=== PATIENT | male | born 1930 | race Caucasian/White ===

== ENCOUNTER 2017-12-08 08:43 | Outpatient (CLI) | payer OTHER ==
--- NOTE | 2017-12-08 11:15 | CT ---
CT ABDOMEN AND PELVIS WITH AND WITHOUT IV CONTRAST: Date: 12/08/17 HISTORY: Gross hematuria. FINDINGS: There are chronic changes in the lung bases and evidence of old granulomatous disease. Calcified gran ulomas are seen in the spleen. The liver, pancreas, and adrenal glands are normal. No calcified galls tones are seen. There is interposition of the colon anterior to the liver. No calculi seen in the kidneys, right ureter, or the urinary bladder. There is left-sided moderate hy droureteronephrosis due to a 6.0 mm calculus at L5 level. There is a 3.0 cm cortical cyst arising fro m the superior pole of the right kidney. No free air, free fluid, or lymphadenopathy seen in the abdomen or pelvis. There are vascular calcifi cations without evidence of aneurysmal dilatation of the abdominal aorta. There are degenerative quinonez ges in the spine. There are fat-containing small bilateral inguinal hernia. A normal appearing append ix is present. IMPRESSION: 1. Obstructing 6.0 mm left ureteric calculus at L5 level. 2. Right renal cyst. POS: DAVID
== END 2017-12-08 08:44 | disposition home or self-care (01) ==
LOC: CT 08:43
PROVIDERS: ATTEND Urology
DX: R31.0 Gross hematuria (principal); N20.1 Calculus of ureter; N28.1 Cyst of kidney, acquired
CPT/HCPCS: 36415; 74178; 80048; 81001; 82565; 84153; 87086

== ENCOUNTER 2018-02-09 06:11 | Inpatient (IN) | payer OTHER ==
[2018-02-09] MEDS ORDERED: Levofloxacin 500 mg/D5W 100 ml Premix Bag ONE (08:44)
[2018-02-09] MEDS ORDERED: Fentanyl 100 MCG/2 ML VIAL ONE (09:43)
[2018-02-09] MEDS ORDERED: Iothalamate Meglumine 60% 50 ML VIAL FS ONE (10:40)
[2018-02-09] MEDS ORDERED: PROPOFOL 200 MG/20 ML VIAL ONE (11:08)
[2018-02-09] MEDS ORDERED: Ondansetron PF 4 MG/2 ML Vial ONE (11:08)
--- NOTE | 2018-02-09 12:03 | OP ---
DATE OF PROCEDURE: 02/09/2018 SERVICE: Urology. SURGEON: Miles Kamara M.D. PREOPERATIVE DIAGNOSIS: Left ureteral stone. POSTOPERATIVE DIAGNOSIS: Left ureteral stone. PROCEDURE PERFORMED: Left ureteroscopy, laser lithotripsy, basket extraction of stone and placement of a 6 x 26 double-J stent. INDICATIONS FOR PROCEDURE: Mr. Perez is an 87-year-old white male who presented with gross hematuria and was found to have a left ureteral stone. He is asymptomatic from this, but I had recommended at we go ahead and treat the stone given that he does have hydronephrosis and gross hematuria. Risks and benefits of the surgery were discussed and he has agreed to proceed forward. His feed research aide d id clear him for surgery, but asked that he remain on Coumadin during his procedure. DESCRIPTION OF PROCEDURE: After identification of armband and verification of consent, the patient w as brought back to the operating room where he underwent general anesthesia with an LMA. He was plac ed in dorsal lithotomy position, prepped and draped in usual sterile fashion. After appropriate time out, a lubricated 22-Hong Konger rigid cystoscope was introduced per urethra into the bladder. Attention was turned towards the left ureteral orifice, which was cannulated with a 5-Hong Konger Pollack catheter. A retrograde pyelogram was performed and the trial manager image did not demonstrate a radiopacity for the s tone. Retrograde pyelogram also did not demonstrate any filling defects indicative of the stone. e CT did confirm the stone was present and I had suspected it likely has not moved. As such, based o n the CT location of the stone, I went ahead and decided where I thought the stone would be and the P ollack catheter was removed. A sensor wire was brought in and placed up into the level of the renal pelvis. The cystoscope was then removed and a dual-lumen catheter placed up into the distal ureter. An Amplatz Super Stiff wire was then placed through the second lumen of the dual lumen up to the lev el of the renal pelvis. The dual lumen removed. The sensor wire was affixed to the drapes as a safe ty wire. An 11/13 x 36 cm ureteral access sheath was advanced over the Super Stiff wire to the level of the mid ureter right approximately at the level of where I presume the stone would be. Inner can nula was removed along with the Super Stiff wire leaving the outer sheath and the sensor wire in plac e. A flexible digital ureteroscope was then passed through the ureteral access sheath into the urete r where the stone was encountered in the expected location. A 200 micron laser fiber was used to fra gment the stone into smaller pieces and a 1.9 Hong Konger Zero Tip nitinol basket used to basket extract a ll the pieces out. Upon completion, there were no additional stone fragments noted within the ureter . I went all the way up into the kidney and did a brief evaluation within the kidney, which did not demonstrate any other calculi. Pull back ureteroscopy was employed and additional stone fragments we re found further down in the distal ureter, which were basketed out. The sheath ended up coming out of the ureter at the very end and I was not sure if all the ureteral fragments had cleared. Therefor e, the sheath and the digital ureteroscope were removed and a semirigid ureteroscope brought in and c annulated into the distal ureter. There were no additional stone fragments noted, so I felt confiden t that the remaining small pieces had passed into the bladder. As such, the ureteroscope was withdra wn and the cystoscope was then backloaded with sensor wire back into the bladder. A 6 x 26 double-J stent was advanced over the sensor wire up to the level of the renal pelvis and the wire removed leav ing a good curl in the renal pelvis and good curl in the bladder. The bladder was then drained and t he cystoscope removed. The patient was then awakened and taken to PACU for recovery in stable condit ion. COMPLICATIONS: None. ESTIMATED BLOOD LOSS: Minimal. RETAINED TUBES AND DRAINS: A 6 x 26 double-J stent on the left. SPECIMENS: Stone for stone analysis. DISPOSITION: The patient will be discharged home and follow up with me in approximately 2 weeks for cystoscopy and stent removal.
[2018-02-09] MEDS ORDERED: HYDROcodone/Acetaminophen 5/325 mg Tablet ONE (13:35)
[2018-02-09] MEDS ORDERED: Furosemide 40 MG TAB PO SCH (15:30)
[2018-02-09] MEDS ORDERED: Sodium Chloride 0.9% 0 ML ONE (17:26)
[2018-02-09] MEDS ORDERED: traMADol HCl 50 MG TAB PO PRN (18:45)
[2018-02-09 20:38] VITALS: BMI 37.4
[2018-02-09] MEDS ORDERED: Atorvastatin Calcium 20 MG TAB PO SCH (21:00)
[2018-02-09] MEDS: Vit A,C & E/Lutein/Minerals Tablet PO SCH (21:57)
[2018-02-10 06:21] LABS: INR-International Normal Ratio 3.6; Prothrombin Time 35.7 SEC (12.0-14.7)
[2018-02-10 06:41] LABS: Hemoglobin 13.4 g/dL (14.0-18.0); Mean Corpuscular HGB CONC 32.8 g/dL (32.0-36.0); Mean Corpuscular Hemoglobin 31.3 pg (27.0-31.0); Mean Corpuscular Volume 95.5 fL (78.0-98.0); Mean Platelet Volume 6.5 fL (7.4-10.4); Platelet Count 242 thou/uL (130-400); RBC Distribution Width 12.7 % (11.5-14.5); Red Blood Cell (RBC) Count 4.27 mill/uL (4.70-6.10); White Blood Cell (WBC) Count 6.1 thou/uL (4.8-10.8)
[2018-02-10] MEDS: Ferrous Sulfate 325 MG TAB PO SCH ×2 (08:59→20:11)
[2018-02-10] MEDS: Furosemide 40 MG TAB PO SCH (09:02)
[2018-02-10] MEDS: Potassium Chloride 10 MEQ TAB PO SCH (09:03)
[2018-02-10] MEDS: Vit A,C & E/Lutein/Minerals Tablet PO SCH ×2 (09:03→20:11)
[2018-02-10] MEDS ORDERED: Warfarin Sodium 5 MG TAB PO SCH ×3 (15:30→17:00)
--- NOTE | 2018-02-10 15:41 | PRG ---
DATE OF SERVICE: 02/10/2018 SUBJECTIVE: The patient states he is feeling good. He has had a few bladder spasms overnight, but o therwise nothing terrible. He elected to stay in the hospital after surgery due to significant hemat uria with possible clot retention. Due to his mechanical heart valve, he was not permitted to stop h is Coumadin for the surgery, so we have continued it. He does live alone and has expressed concern a bout going home by himself with a catheter with his level of hematuria. OBJECTIVE: VITAL SIGNS: Temperature 97.7, pulse 78, respirations 22, blood pressure 117/71, saturation 92% on r oom air. GENERAL: No apparent distress, communicative and alert. CARDIOVASCULAR: Regular rate and rhythm. Loud systolic murmur. CHEST: No increased work of breathing, clear anteriorly. ABDOMEN: Soft, nontender, nondistended. GENITOURINARY: Alejo catheter in place, secured. A 20-Romansh catheter with maroon-colored urine. C atheter was hand irrigated with normal saline, which resulted in no clots and immediate clearing of u rine to light pink. EXTREMITIES: 3+ edema bilaterally with stasis dermatitis. ASSESSMENT AND PLAN: An 87-year-old white male with gross hematuria secondary to recent ureteroscopy for stone removal and ureteral stenting while still on Coumadin. I will hold his aspirin as I do no t think it is really necessary at this point to keep additional blood thinners on it that are not nec essary. We will keep him on a Coumadin friendly diet. His INR is a little high at 3.6, but he also doses his Coumadin at half dose on Mondays and Saturdays and since Tuesday is coming up, he probably will have correction in his INR automatically back into his therapeutic range. For now, I am in agr eement that given his social situation, it will probably be better for him to stay in the hospital to watch his hematuria. So long as his catheter continues to drain, I think he can undergo a void tria l tomorrow and be watched for 1 additional day to ensure that he is urinating appropriately. At that point, I think he can be discharged home and we will plan to have him follow up next week for cystos copy and stent removal.
[2018-02-10] MEDS: Simvastatin 40 MG TAB PO SCH (20:11)
[2018-02-10] MEDS ORDERED: Non-Formulary Item 1 EACH (Ferrous Sulfate [Ferrous Sulfate] 325 MG) PO SCH (21:00)
[2018-02-10] MEDS ORDERED: WARFARIN PO PRN (21:12)
[2018-02-11 05:57] LABS: #Eosinphils 0.3 thou/uL (0.0-0.7); #Lymphocytes 1.7 thou/uL (1.20-3.40); #Monocytes 0.7 thou/uL (0.11-0.59); #Neutrophils 3.7 thou/uL (1.40-6.50); %Basophils 0.6 % (0.0-1.0); %Eosinophils 4.7 % (0.0-10.0); %Lymphocytes 26.8 % (21.0-51.0); %Monocytes 10.3 % (0.0-10.0); %Neutrophils 57.7 % (42.0-75.0); Hemoglobin 12.9 g/dL (14.0-18.0); Mean Corpuscular HGB CONC 33.1 g/dL (32.0-36.0); Mean Corpuscular Hemoglobin 31.8 pg (27.0-31.0); Mean Platelet Volume 6.4 fL (7.4-10.4); Platelet Count 217 thou/uL (130-400); RBC Distribution Width 12.7 % (11.5-14.5); Red Blood Cell (RBC) Count 4.07 mill/uL (4.70-6.10); White Blood Cell (WBC) Count 6.4 thou/uL (4.8-10.8)
[2018-02-11 06:16] LABS: Anion Gap 12 mmol/L (10-20); BUN (Urea Nitrogen) 14 mg/dL (8.4-25.7); Calc. Creatinine Clearance 67 mL/min (70-130); Carbon Dioxide 30 mmol/L (23-31); Chloride 103 mmol/L (98-107); Estimated GFR-MDRD 54; Glucose 123 mg/dL (83-110); Potassium 3.5 mmol/L (3.5-5.1); Sodium 141 mmol/L (136-145)
[2018-02-11 06:55] LABS: INR-International Normal Ratio 2.3
[2018-02-11] MEDS: Vit A,C & E/Lutein/Minerals Tablet PO SCH ×2 (08:50→21:07)
[2018-02-11] MEDS: Furosemide 40 MG TAB PO SCH (08:50)
[2018-02-11] MEDS: Potassium Chloride 10 MEQ TAB PO SCH (08:50)
[2018-02-11] MEDS: Ferrous Sulfate 325 MG TAB PO SCH ×2 (08:50→18:01)
[2018-02-11] MEDS ORDERED: Furosemide 40 MG TAB PO SCH (09:00)
[2018-02-11] MEDS ORDERED: Potassium Chloride 10 MEQ TAB PO SCH (09:00)
[2018-02-11] MEDS ORDERED: Bisacodyl 5 MG TAB PO PRN (09:37)
[2018-02-11] MEDS ORDERED: Senokot S 8.6-50 MG TAB PO SCH (10:00)
--- NOTE | 2018-02-11 10:31 | CON ---
DATE OF CONSULTATION: 02/11/2018 CONSULTING PHYSICIAN: Miles Kamara M.D. REASON FOR CONSULTATION: Medical management. 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 The marco a ent developed symptomatic left-sided kidney stone requiring ureteroscopy with stone extraction and st ent placement. However, given the patient's mechanical valve situation, he was maintained on his war farin through the procedure. Subsequent to the procedure, the patient has had some hematuria and the refore has been monitored in the hospital. Currently, the patient states he feels okay. He continue s to have significant amount of hematuria. REVIEW OF SYSTEMS: Notable for some discomfort in the right shoulder area. He also has some dry eye symptoms related to his ocular prosthesis. Otherwise, 10 system review is negative. PAST MEDICAL HISTORY: Notable for left eye prosthesis, macular degeneration of the right eye, ashby ry artery disease, mechanical valve three-vessel, venous stasis dermatitis, sleep apnea, hypertension . PAST SURGICAL HISTORY: Prosthetic valve placement, right knee surgery, tonsillectomy, adenoidectomy, 3-vessel coronary artery bypass graft. FAMILY HISTORY: Notable for myocardial infarction in the grandmother and coronary artery disease. SOCIAL HISTORY: The patient quit smoking over 10 years ago. He has no alcohol use, no drug use. He is . He is FULL CODE and his children will be his surrogate decision maker, specifically his youngest daughter, but he would also defer to his other children or girlfriend if necessary. ALLERGIES: None. HOME MEDICATIONS: Include potassium 10 mEq daily, Preservision soft gels 1 p.o. b.i.d., ferrous sulf ate 325 b.i.d., vitamin D3 1000 units every day, simvastatin 0.5 mg at bedtime, Lasix 40 mg every day , aspirin 81 mg daily, warfarin 5 mg p.o. daily as directed, tramadol 50 mg q.4 hours p.r.n. CURRENT HOSPITAL MEDICATIONS: Replicate the home medications. His Coumadin regimen is 5 mg Tuesday, Tuesday, Tuesday, , Tuesday with a 2.5 mg Tuesday and Tuesday. PHYSICAL EXAMINATION: VITAL SIGNS: Temperature is 97.5, pulse 75, respirations 14-24, O2 sat 91%-93%, O2 sat 95% on room a ir, BP 125/82. GENERAL APPEARANCE: Age appropriate male. He is awake, alert, oriented, pleasant, cooperative. He is in no distress. HEENT: Reveals left eye prosthesis. NECK: Supple and symmetric. HEART: Regular rate and rhythm. He does not have a significantly loud mechanical click noted. He h as got no significant murmurs. There is about a 1/6 in the left upper sternal border. LUNGS: Clear to auscultation bilaterally anterior. He preferred not to sit up because of pain in hi s shoulder which is chronic. ABDOMEN: Soft, nontender, nondistended, positive bowel sounds, no masses, no organomegaly. EXTREMITIES: Warm and dry with no edema. There is some chronic stasis dermatitis present; however a lso note patient has a persistent indwelling Alejo catheter with his significant amount of hematuria present. CURRENT LABORATORY DATA: White count 6.4, hemoglobin 12.9, platelets 217. INR is 1.3. Sodium 141, potassium 3.5, chloride 103, CO2 30, BUN 14, creatinine 1.27 and glucose 123. IMPRESSION AND PLAN: 1. Hematuria, status post ureteral stone extraction and stent placement. Unfortunately, this is exa cerbated by the patient's persistent need for the anticoagulation. Currently, he is at 2.3 on his IN R, tiny bit lower than I would like to see it for the heart valve, but given the situation, this is p robably very appropriate level. Continue Alejo catheter to ensure the patient does not have any clot ting until removed by Urology. 2. Prosthetic heart valve, presumably aortic position. The patient remains on Coumadin. His target range is 2.5-3.5. He is 2.3 today, not going to give him any additional Lovenox given the persisten t hematuria and the fact that he is remaining on his usual Coumadin therapy. We will continue to mon itor that daily. 3. Patient is essentially wheelchair bound and has significant vision difficulties for him to be abl e to manage the Alejo catheter, especially with concerns for hematuria and clotting on the need for r epeat labs be virtually impossible for this person. This patient is trying to manage as an outpatien t. Therefore, agree with having him in the hospital for this particular episode of care. 4. History of coronary artery disease, stable. Continue his usual home medical regimen other than h aving his aspirin held temporarily. 5. Hyperlipidemia. Continue with Zocor. 6. Chronic peripheral edema. Continue with Lasix and potassium.
--- NOTE | 2018-02-11 11:20 | PRG ---
DATE OF SERVICE: 02/11/2018 SUBJECTIVE: The patient is resting comfortably. Denies flank pain. No complaints. OBJECTIVE: VITAL SIGNS: Stable, 97.5, 91, 125/82. I's and O's 1100 in and 875 out. He is positive 200 mL. ABDOMEN: Soft, nontender, nondistended. GENITOURINARY: There is a moderate amount of dry blood around the Alejo catheter. No active oozing around the meatus noted. Alejo catheter bag demonstrates very dark maroon urine. Curiel red in the tubing. I did flush his catheter. Although it clears, he remains curiel red. No clots are appreciated. EXTREMITIES: No cyanosis, clubbing, or edema. PERTINENT LABORATORY DATA: White count is 6; hemoglobin 12.9, yesterday was 13.4; platelets 217. INR this morning is 2.3 and creatinine 1.2. IMPRESSION AND PLAN: Mr. Perez is an 87-year-old male with, 1. History of ureteral calculi, postoperative day #2, status post ureteroscopy , laser lithotripsy, stent placement. 2. History of mechanical heart valve, on chronic Coumadin. 3. Hematuria, multifactorial. The patient has dropped his hemoglobin slightly. Currently his catheter is draining, If significant amount of clots, he will require a 3-way Alejo catheter with continuous bladder irrigation. Although his INR is mildly subtherapeutic, I do not recommend providing him further anticoagulation, as he does have significant hematuria.; Hospitalist service agrees. Will continue to monitor daily labs. Appreciate hospitalist consult. If significant amount of hematuria warranting CBI, will consider holding Coumadin for a day. Patient not ready for discharge; his H and H has to be stable prior to discharge. Not a candidate for Alejo catheter removal due to degree of hematuria; if removed will result in clot retention. [facility] [place] [facility]
[2018-02-11] MEDS ORDERED: Warfarin Sodium 2.5 MG TAB PO SCH (17:00)
[2018-02-11] MEDS: Senokot S 8.6-50 MG TAB PO SCH (21:07)
[2018-02-11] MEDS: Simvastatin 40 MG TAB PO SCH (21:08)
[2018-02-12] MEDS: Polyvinyl Alcohol 1.4%/Povidone 0.6% Opth Drops EA EYE PRN (03:34)
[2018-02-12 06:08] LABS: #Basophils 0.1 thou/uL (0.0-0.2); #Eosinphils 0.3 thou/uL (0.0-0.7); #Lymphocytes 1.7 thou/uL (1.20-3.40); #Monocytes 0.6 thou/uL (0.11-0.59); %Eosinophils 5.8 % (0.0-10.0); %Lymphocytes 29.7 % (21.0-51.0); %Monocytes 10.3 % (0.0-10.0); %Neutrophils 53.3 % (42.0-75.0); Hemoglobin 13.1 g/dL (14.0-18.0); Mean Corpuscular HGB CONC 33.4 g/dL (32.0-36.0); Mean Corpuscular Volume 96.1 fL (78.0-98.0); Mean Platelet Volume 6.6 fL (7.4-10.4); Platelet Count 239 thou/uL (130-400); RBC Distribution Width 12.8 % (11.5-14.5); Red Blood Cell (RBC) Count 4.09 mill/uL (4.70-6.10); White Blood Cell (WBC) Count 5.6 thou/uL (4.8-10.8)
[2018-02-12 06:27] LABS: Anion Gap 11 mmol/L (10-20); BUN (Urea Nitrogen) 17 mg/dL (8.4-25.7); Calc. Creatinine Clearance 78 mL/min (70-130); Calcium 9.4 mg/dL (7.8-10.44); Carbon Dioxide 31 mmol/L (23-31); Chloride 101 mmol/L (98-107); Estimated GFR-MDRD 64; Glucose 108 mg/dL (83-110); Potassium 3.6 mmol/L (3.5-5.1); Sodium 139 mmol/L (136-145)
[2018-02-12 06:30] LABS: INR-International Normal Ratio 1.5; Prothrombin Time 17.7 SEC (12.0-14.7)
[2018-02-12] MEDS: Furosemide 40 MG TAB PO SCH (09:00)
[2018-02-12] MEDS: Potassium Chloride 10 MEQ TAB PO SCH (09:01)
[2018-02-12] MEDS: Vit A,C & E/Lutein/Minerals Tablet PO SCH ×2 (09:01→21:17)
[2018-02-12] MEDS: Ferrous Sulfate 325 MG TAB PO SCH ×2 (09:01→17:33)
[2018-02-12] MEDS: Senokot S 8.6-50 MG TAB PO SCH ×2 (09:02→21:17)
[2018-02-12] MEDS ORDERED: WARFARIN PO SCH (10:45)
[2018-02-12] MEDS ORDERED: Oxybutynin 5 MG TAB PO PRN (10:52)
--- NOTE | 2018-02-12 11:26 | PRG ---
DATE OF SERVICE: 02/12/2018 SUBJECTIVE: The patient without complaints, denies chest pain, shortness of breath. No significant flank or abdominal pain. PHYSICAL EXAMINATION: VITAL SIGNS: Stable at 97, 14, 92%, 141/87. Urine output 800 mL. ABDOMEN: Soft, protuberant, obese. GENITOURINARY: Alejo catheter cont to have significant hematuria. It was flushed. There is clearing; however, it continues to be luther red. LABORATORY DATA: His INR this morning is 1.5, creatinine 1.0. Hemoglobin is stable at 13. IMPRESSION AND PLAN: Mr. Perez is an 87-year-old male with history of mechanical heart valve, on chronic Coumadin. 1. History of ureteral calculi. Postoperative day #3, status post ureteroscopy , laser lithotripsy, stent placement. 2. Hematuria continues which is multifactorial due to chronic anticoagulation, recent URS with stent. As he continues to have significant hematuria, even with subtherapeutic INR, I did conference with the Hospitalist which they will start heparin drip to bridge. He will continue his home dose Coumadin, his PTT will be checked by the hospitalist service and be monitored for therapeutic level. As he has significant hematuria, which I anticipate may get worse, three -way Alejo catheter was placed,CBI started. Dr. Kamara to resume his care tomorrow morning. [facility]
[2018-02-12] MEDS: Heparin 25,000 units/D5W 500 ML IV SCH (11:56)
[2018-02-12] MEDS ORDERED: Warfarin Sodium 2.5 MG TAB PO SCH (12:00)
[2018-02-12 13:09] LABS: Hemoglobin 13.1 g/dL (14.0-18.0)
--- NOTE | 2018-02-12 13:43 | PDOC.PN ---
- Subjective Encounter Start Date: 02/12/18 Encounter Start Time: 08:20 Pt seen for followup re: hematuria. Denies chest pain, shortness of breath, fevers or chills. - Objective MAR Reviewed: Yes Vital Signs & Weight: Vital Signs (12 hours) Temp Pulse Resp BP BP Pulse Ox 02/12/18 11:07 97.4 F L 89 20 103/69 91 L 02/12/18 08:00 92 L 02/12/18 07:21 97.5 F L 74 24 H 128/85 92 L 02/12/18 04:10 97.8 F 82 14 141/87 H 92 L Weight Weight 246 lb I&O: 02/11/18 02/12/18 02/13/18 06:59 06:59 06:59 Intake Total 1100 720 Output Total 875 800 Balance 225 -80 Result Diagrams: 02/12/18 13:01 02/12/18 04:37 Additional Labs: labs reviewed by me Phys Exam - Physical Examination Constitutional: NAD HEENT: moist MMs Neck: supple Respiratory: clear to auscultation bilateral Cardiovascular: RRR Gastrointestinal: soft Neurological: non-focal, moves all 4 limbs Psychiatric: normal affect Dx/Plan (1) Hematuria Code(s): R31.9 - HEMATURIA, UNSPECIFIED Status: Acute Comment: hemoglobin stable (2) Subtherapeutic international normalized ratio (INR) Code(s): R79.1 - ABNORMAL COAGULATION PROFILE Status: Acute Comment: Pt has mechanical mitral valve, needs to be on anticoagulation. Discussed risks vs benefits with patient. Pt agreeable to starting heparin drip, with PTT monitoring and serial hemoglobin checks. Discussed with pharmacy, they will manage warfarin. (3) HLD (hyperlipidemia) Code(s): E78.5 - HYPERLIPIDEMIA, UNSPECIFIED Status: Chronic Comment: continue statin. (4) HTN (hypertension) Code(s): I10 - ESSENTIAL (PRIMARY) HYPERTENSION Status: Chronic Comment: controlled. - Plan * . Review of Systems - Review of Systems Respiratory: negative: Cough, Shortness of Breath, SOB with Excertion, Pleuritic Pain, Wheezing Cardiovascular: negative: chest pain, palpitations, orthopnea, paroxysmal nocturnal dyspnea, edema, light headedness Genitourinary: Hematuria - Medications/Allergies Allergies/Adverse Reactions: Allergies Allergy/AdvReac Type Severity Reaction Status Date / Time No Known Drug Allergies Allergy Verified 02/09/18 20:38 Medications: Current Medications Aspirin (Aspirin Chewable) 81 mg PO DAILY [facility] Last Admin: 02/12/18 09:00 Dose: 81 mg Bisacodyl (Dulcolax) 5 mg PO DAILYPRN PRN PRN Reason: Constipation Cholecalciferol (Vitamin D3) 1,000 units PO DAILY [facility] Last Admin: 02/12/18 09:01 Dose: 1,000 units Ferrous Sulfate (Feosol) 325 mg PO BID-[facility] Last Admin: 02/12/18 09:01 Dose: 325 mg Furosemide (Lasix) 40 mg PO DAILY [facility] Last Admin: 02/12/18 09:00 Dose: 40 mg Heparin Sodium/Dextrose (Heparin 25,000 Units/D5w 500 Ml) 500 mls @ 0 mls/hr IV INF [facility]; Protocol Last Admin: 02/12/18 11:56 Dose: 500 mls Miscellaneous Medication (Pharmacy To Dose) 1 each PO .WARFARIN [facility] Morphine Sulfate (Morphine) 2 mg SLOW IVP Q2H PRN PRN Reason: PAIN IF UNABLE TO TAKE PO Multivitamins/Minerals (Ocuvite With Lutein) 1 tab PO BID [facility] Last Admin: 02/12/18 09:01 Dose: 1 tab Oxybutynin Chloride (Ditropan) 5 mg PO Q8H PRN PRN Reason: Bladder Spasms Polyvinyl Alcohol/Povidone (Refresh Classic Eye Drops) 0 each EA EYE Q4H PRN PRN Reason: Dry Eyes Last Admin: 02/12/18 03:34 Dose: 1 each Potassium Chloride (Klor-Con 10) 10 meq PO QA-[facility] Last Admin: 02/12/18 09:01 Dose: 10 meq Senna/Docusate Sodium (Senokot S) 1 tab PO BID [facility] Last Admin: 02/12/18 09:02 Dose: 1 tab Simvastatin (Zocor) 40 mg PO HS [facility] Last Admin: 02/11/18 21:08 Dose: 40 mg Sodium Chloride (Flush - Normal Saline) 10 ml IVF PRN PRN PRN Reason: Saline Flush Sodium Chloride (Flush - Normal Saline) 10 ml IVF BID [facility] Last Admin: 02/12/18 09:02 Dose: 10 ml Sodium Chloride (Flush - Normal Saline) 10 ml IVF PRN PRN PRN Reason: Saline Flush Tramadol HCl (Ultram) 50 mg PO Q4H PRN PRN Reason: Pain Warfarin Sodium (Coumadin) 5 mg PO 1700 [facility]
[2018-02-12] MEDS: Warfarin Sodium 5 MG TAB PO SCH (17:33)
[2018-02-12 18:12] LABS: Hemoglobin 13.5 g/dL (14.0-18.0); Platelet Count 223 thou/uL (130-400)
[2018-02-12] MEDS: Simvastatin 40 MG TAB PO SCH (21:17)
[2018-02-13 06:13] LABS: #Eosinphils 0.4 thou/uL (0.0-0.7); #Lymphocytes 1.6 thou/uL (1.20-3.40); #Monocytes 0.7 thou/uL (0.11-0.59); #Neutrophils 4.2 thou/uL (1.40-6.50); %Basophils 0.5 % (0.0-1.0); %Eosinophils 6.1 % (0.0-10.0); %Lymphocytes 22.7 % (21.0-51.0); %Monocytes 9.6 % (0.0-10.0); %Neutrophils 61.1 % (42.0-75.0); Hemoglobin 13.2 g/dL (14.0-18.0); Mean Corpuscular HGB CONC 32.1 g/dL (32.0-36.0); Mean Corpuscular Volume 96.6 fL (78.0-98.0); Mean Platelet Volume 6.8 fL (7.4-10.4); Platelet Count 256 thou/uL (130-400); RBC Distribution Width 12.6 % (11.5-14.5); Red Blood Cell (RBC) Count 4.25 mill/uL (4.70-6.10); White Blood Cell (WBC) Count 6.9 thou/uL (4.8-10.8)
[2018-02-13 06:30] LABS: Anion Gap 13 mmol/L (10-20); BUN (Urea Nitrogen) 21 mg/dL (8.4-25.7); Calc. Creatinine Clearance 74 mL/min (70-130); Calcium 9.3 mg/dL (7.8-10.44); Carbon Dioxide 28 mmol/L (23-31); Chloride 102 mmol/L (98-107); Estimated GFR-MDRD 60; Glucose 158 mg/dL (83-110); Potassium 3.4 mmol/L (3.5-5.1); Sodium 140 mmol/L (136-145)
[2018-02-13 07:38] LABS: INR-International Normal Ratio 1.2; Prothrombin Time 15.6 SEC (12.0-14.7)
[2018-02-13] MEDS: Ferrous Sulfate 325 MG TAB PO SCH ×2 (08:00→18:43)
[2018-02-13] MEDS: Potassium Chloride 10 MEQ TAB PO SCH (08:00)
[2018-02-13] MEDS: Senokot S 8.6-50 MG TAB PO SCH ×2 (08:01→20:41)
[2018-02-13] MEDS: Vit A,C & E/Lutein/Minerals Tablet PO SCH ×2 (08:01→20:41)
[2018-02-13] MEDS: Polyvinyl Alcohol 1.4%/Povidone 0.6% Opth Drops EA EYE PRN (08:01)
[2018-02-13] MEDS: Furosemide 40 MG TAB PO SCH (08:01)
[2018-02-13] MEDS ORDERED: Potassium Chloride 20 MEQ TAB PO SCH (08:45)
[2018-02-13] MEDS: Heparin 25,000 units/D5W 500 ML IV SCH (10:02)
--- NOTE | 2018-02-13 15:28 | PDOC.PN ---
- Subjective Encounter Start Date: 02/13/18 Encounter Start Time: 08:00 Pt seen for followup re: hematuria. Denies chest pain, shortness of breath, fevers or chills. - Objective MAR Reviewed: Yes Vital Signs & Weight: Vital Signs (12 hours) Temp Pulse Resp BP Pulse Ox 02/13/18 11:39 97.9 F 89 18 122/78 92 L 02/13/18 07:38 98.1 F 88 18 132/81 92 L 02/13/18 04:21 98.3 F 88 16 155/94 H 92 L Weight Weight 246 lb I&O: 02/12/18 02/13/18 02/14/18 06:59 06:59 06:59 Intake Total 720 Output Total 800 4700 Balance -80 -4700 Result Diagrams: 02/14/18 04:43 02/14/18 04:43 Additional Labs: Labs reviewed by me Phys Exam - Physical Examination Obese HEENT: moist MMs Neck: supple Respiratory: clear to auscultation bilateral Cardiovascular: RRR dark red murphy output Musculoskeletal: edema present Neurological: moves all 4 limbs Psychiatric: normal affect Dx/Plan (1) Hematuria Code(s): R31.9 - HEMATURIA, UNSPECIFIED Status: Acute Comment: hemoglobin stable, pt on heparin drip (2) Subtherapeutic international normalized ratio (INR) Code(s): R79.1 - ABNORMAL COAGULATION PROFILE Status: Acute Comment: continue warfarin with heparin bridge. INR 1.2 today. (3) HLD (hyperlipidemia) Code(s): E78.5 - HYPERLIPIDEMIA, UNSPECIFIED Status: Chronic Comment: on statin. (4) HTN (hypertension) Code(s): I10 - ESSENTIAL (PRIMARY) HYPERTENSION Status: Chronic Comment: controlled. - Plan * . Review of Systems - Review of Systems Cardiovascular: negative: chest pain, palpitations, orthopnea, paroxysmal nocturnal dyspnea, edema, light headedness Gastrointestinal: negative: Nausea, Vomiting, Abdominal Pain, Diarrhea, Constipation, Melena, Hematochezia - Medications/Allergies Allergies/Adverse Reactions: Allergies Allergy/AdvReac Type Severity Reaction Status Date / Time No Known Drug Allergies Allergy Verified 02/09/18 20:38 Medications: Current Medications Aspirin (Aspirin Chewable) 81 mg PO DAILY [facility] Last Admin: 02/13/18 08:01 Dose: 81 mg Bisacodyl (Dulcolax) 5 mg PO DAILYPRN PRN PRN Reason: Constipation Cholecalciferol (Vitamin D3) 1,000 units PO DAILY [facility] Last Admin: 02/13/18 08:01 Dose: 1,000 units Ferrous Sulfate (Feosol) 325 mg PO BID-[facility] Last Admin: 02/13/18 08:00 Dose: 325 mg Furosemide (Lasix) 40 mg PO DAILY [facility] Last Admin: 02/13/18 08:01 Dose: 40 mg Heparin Sodium/Dextrose (Heparin 25,000 Units/D5w 500 Ml) 500 mls @ 0 mls/hr IV INF [facility]; Protocol Last Admin: 02/13/18 10:02 Dose: 500 mls Miscellaneous Medication (Pharmacy To Dose) 1 each PO .WARFARIN [facility] Morphine Sulfate (Morphine) 2 mg SLOW IVP Q2H PRN PRN Reason: PAIN IF UNABLE TO TAKE PO Multivitamins/Minerals (Ocuvite With Lutein) 1 tab PO BID [facility] Last Admin: 02/13/18 08:01 Dose: 1 tab Oxybutynin Chloride (Ditropan) 5 mg PO Q8H PRN PRN Reason: Bladder Spasms Polyvinyl Alcohol/Povidone (Refresh Classic Eye Drops) 0 each EA EYE Q4H PRN PRN Reason: Dry Eyes Last Admin: 02/13/18 08:01 Dose: 1 each Potassium Chloride (Klor-Con 10) 10 meq PO QA-[facility] Last Admin: 02/13/18 08:00 Dose: 10 meq Senna/Docusate Sodium (Senokot S) 1 tab PO BID [facility] Last Admin: 02/13/18 08:01 Dose: 1 tab Simvastatin (Zocor) 40 mg PO HS [facility] Last Admin: 02/12/18 21:17 Dose: 40 mg Sodium Chloride (Flush - Normal Saline) 10 ml IVF PRN PRN PRN Reason: Saline Flush Sodium Chloride (Flush - Normal Saline) 10 ml IVF BID [facility] Last Admin: 02/13/18 08:01 Dose: Not Given Sodium Chloride (Flush - Normal Saline) 10 ml IVF PRN PRN PRN Reason: Saline Flush Tramadol HCl (Ultram) 50 mg PO Q4H PRN PRN Reason: Pain Warfarin Sodium (Coumadin) 5 mg PO 1700 [facility] Last Admin: 02/12/18 17:33 Dose: 5 mg
[2018-02-13] MEDS: Warfarin Sodium 5 MG TAB PO SCH (18:44)
--- NOTE | 2018-02-13 20:38 | PRG ---
DATE OF SERVICE: 02/13/2018 SUBJECTIVE: The patient states he is feeling fine. He is getting a little weak and is having signif icant amount of difficulty getting out of bed. Otherwise, he has no pain and no complaints. He has not had any fevers. He is currently on a heparin drip due to subtherapeutic INR. OBJECTIVE: VITAL SIGNS: Temperature 97.9, pulse 82, respirations 18, blood pressure 128/78, saturation 93% on r oom air. GENERAL: No apparent distress. CARDIOVASCULAR: Regular rate and rhythm. Loud murmur. CHEST: No increased work of breathing, clear anteriorly. ABDOMEN: Soft, nontender, nondistended, positive bowel sounds. GENITOURINARY: Alejo catheter in place on slow drip CBI with urine that is relatively clear in the t ubing. EXTREMITIES: 3+ edema bilaterally. ASSESSMENT AND PLAN: An 87-year-old white male with mechanical heart valve, currently on a heparin d rip with gross hematuria that was not clearing. Given his need for anticoagulation and a number of d ays that have passed, I think it is reasonable for him to have his stent removed at this point which should allow for his hematuria to resolve. We will plan for a stent removal tomorrow with coverage o f ampicillin and cefepime for his mechanical heart valve. After that point, I think we can plan for monitoring him on a heparin drip and his hematuria should clear at which point we will turn off his C BI give him a void trial and as long as he is urinating reasonably well, he can go home. We will sta rt physical therapy given that he has gotten quite weak.
[2018-02-13] MEDS: Simvastatin 40 MG TAB PO SCH (20:42)
[2018-02-14 05:29] LABS: INR-International Normal Ratio 1.2; Prothrombin Time 15.4 SEC (12.0-14.7)
[2018-02-14 05:30] LABS: #Eosinphils 0.4 thou/uL (0.0-0.7); #Lymphocytes 1.6 thou/uL (1.20-3.40); #Monocytes 0.6 thou/uL (0.11-0.59); #Neutrophils 3.5 thou/uL (1.40-6.50); %Basophils 0.6 % (0.0-1.0); %Eosinophils 6.7 % (0.0-10.0); %Lymphocytes 25.8 % (21.0-51.0); %Neutrophils 56.9 % (42.0-75.0); Hemoglobin 12.7 g/dL (14.0-18.0); Mean Corpuscular HGB CONC 32.3 g/dL (32.0-36.0); Mean Corpuscular Hemoglobin 31.3 pg (27.0-31.0); Mean Platelet Volume 6.8 fL (7.4-10.4); PTT 79.4 SEC (22.9-36.1); Platelet Count 253 thou/uL (130-400); RBC Distribution Width 12.7 % (11.5-14.5); Red Blood Cell (RBC) Count 4.05 mill/uL (4.70-6.10); White Blood Cell (WBC) Count 6.1 thou/uL (4.8-10.8)
[2018-02-14 05:53] LABS: Anion Gap 11 mmol/L (10-20); BUN (Urea Nitrogen) 17 mg/dL (8.4-25.7); Calc. Creatinine Clearance 86 mL/min (70-130); Calcium 8.9 mg/dL (7.8-10.44); Carbon Dioxide 30 mmol/L (23-31); Chloride 103 mmol/L (98-107); Estimated GFR-MDRD 72; Glucose 117 mg/dL (83-110); Potassium 3.7 mmol/L (3.5-5.1); Sodium 140 mmol/L (136-145)
[2018-02-14] MEDS ORDERED: Ampicillin 1 GM in Sodium Chloride 0.9% 100 ML IVPB SCH (08:30)
[2018-02-14] MEDS ORDERED: Gentamicin Sulfate 80 MG in Premix Bag 1 BAG IVPB SCH (08:30)
[2018-02-14] MEDS: Heparin 25,000 units/D5W 500 ML IV SCH (09:08)
[2018-02-14] MEDS: Potassium Chloride 10 MEQ TAB PO SCH (09:40)
[2018-02-14] MEDS: Furosemide 40 MG TAB PO SCH (09:40)
[2018-02-14] MEDS: Vit A,C & E/Lutein/Minerals Tablet PO SCH ×2 (09:40→20:38)
[2018-02-14] MEDS: Senokot S 8.6-50 MG TAB PO SCH ×2 (09:40→20:38)
[2018-02-14] MEDS: Polyethylene Glycol 3350 17 GM Packet PO SCH (09:40)
[2018-02-14] MEDS: Ferrous Sulfate 325 MG TAB PO SCH ×2 (09:41→18:22)
[2018-02-14 10:23] LABS: CA Oxalate Dihydrate 12 % (.); CA Oxalate Monohydrate 85 % (.); Color Tan (.); Stone Weight 39.9 mg (.)
[2018-02-14] MEDS ORDERED: Acetaminophen 325 MG TAB PO PRN (14:17)
--- NOTE | 2018-02-14 17:14 | PDOC.PN ---
- Subjective Encounter Start Date: 02/14/18 Encounter Start Time: 07:20 Pt seen for followup re: hematuria. Pt says he feels fine. - Objective MAR Reviewed: Yes Vital Signs & Weight: Vital Signs (12 hours) Temp Pulse Resp BP BP Pulse Ox 02/14/18 15:19 98 F 85 20 146/86 H 92 L 02/14/18 11:48 97.8 F 94 18 151/82 H 95 02/14/18 07:29 97.4 F L 84 18 129/83 91 L Weight Weight 246 lb I&O: 02/13/18 02/14/18 02/15/18 06:59 06:59 06:59 Intake Total 264 Output Total 4700 2980 Balance -3160 -9387 Result Diagrams: 02/14/18 04:43 02/14/18 04:43 Additional Labs: Accuchecks 02/13/18 23:21 POC Glucose 194 H Labs reviewed by me Phys Exam - Physical Examination Constitutional: NAD HEENT: moist MMs Neck: supple Respiratory: clear to auscultation bilateral Cardiovascular: RRR Gastrointestinal: soft Neurological: moves all 4 limbs Psychiatric: normal affect Dx/Plan (1) Hematuria Code(s): R31.9 - HEMATURIA, UNSPECIFIED Status: Acute Comment: hemoglobin 12.7 today, continue heparin drip (2) Subtherapeutic international normalized ratio (INR) Code(s): R79.1 - ABNORMAL COAGULATION PROFILE Status: Acute Comment: INR 1.2 today, continue warfarin with heparin bridge. (3) HLD (hyperlipidemia) Code(s): E78.5 - HYPERLIPIDEMIA, UNSPECIFIED Status: Chronic Comment: continue statin. (4) HTN (hypertension) Code(s): I10 - ESSENTIAL (PRIMARY) HYPERTENSION Status: Chronic Comment: controlled. - Plan * . Review of Systems - Review of Systems Constitutional: negative: fever, chills, sweats, weakness, malaise Cardiovascular: negative: chest pain, palpitations, orthopnea, paroxysmal nocturnal dyspnea, edema, light headedness Genitourinary: Hematuria - Medications/Allergies Allergies/Adverse Reactions: Allergies Allergy/AdvReac Type Severity Reaction Status Date / Time No Known Drug Allergies Allergy Verified 02/09/18 20:38 Medications: Current Medications Acetaminophen (Tylenol) 650 mg PO Q4H PRN PRN Reason: Headache, Aches or Pain Last Admin: 02/14/18 14:23 Dose: 650 mg Aspirin (Aspirin Chewable) 81 mg PO DAILY [facility] Last Admin: 02/14/18 09:41 Dose: 81 mg Bisacodyl (Dulcolax) 5 mg PO DAILYPRN PRN PRN Reason: Constipation Cholecalciferol (Vitamin D3) 1,000 units PO DAILY [facility] Last Admin: 02/14/18 09:40 Dose: 1,000 units Ferrous Sulfate (Feosol) 325 mg PO BID-[facility] Last Admin: 02/14/18 09:41 Dose: 325 mg Furosemide (Lasix) 40 mg PO DAILY [facility] Last Admin: 02/14/18 09:40 Dose: 40 mg Heparin Sodium/Dextrose (Heparin 25,000 Units/D5w 500 Ml) 500 mls @ 0 mls/hr IV INF [facility]; Protocol Last Admin: 02/14/18 09:08 Dose: 500 mls Miscellaneous Medication (Pharmacy To Dose) 1 each PO .WARFARIN [facility] Morphine Sulfate (Morphine) 2 mg SLOW IVP Q2H PRN PRN Reason: PAIN IF UNABLE TO TAKE PO Multivitamins/Minerals (Ocuvite With Lutein) 1 tab PO BID [facility] Last Admin: 02/14/18 09:40 Dose: 1 tab Oxybutynin Chloride (Ditropan) 5 mg PO Q8H PRN PRN Reason: Bladder Spasms Last Admin: 02/14/18 09:40 Dose: 5 mg Polyethylene Glycol (Miralax) 17 gm PO DAILY [facility] Last Admin: 02/14/18 09:40 Dose: 17 gm Polyvinyl Alcohol/Povidone (Refresh Classic Eye Drops) 0 each EA EYE Q4H PRN PRN Reason: Dry Eyes Last Admin: 02/13/18 08:01 Dose: 1 each Potassium Chloride (Klor-Con 10) 10 meq PO QAM-[facility] Last Admin: 02/14/18 09:40 Dose: 10 meq Senna/Docusate Sodium (Senokot S) 1 tab PO BID [facility] Last Admin: 02/14/18 09:40 Dose: 1 tab Simvastatin (Zocor) 40 mg PO HS [facility] Last Admin: 02/13/18 20:42 Dose: 40 mg Sodium Chloride (Flush - Normal Saline) 10 ml IVF PRN PRN PRN Reason: Saline Flush Sodium Chloride (Flush - Normal Saline) 10 ml IVF BID [facility] Last Admin: 02/13/18 20:42 Dose: 10 ml Sodium Chloride (Flush - Normal Saline) 10 ml IVF PRN PRN PRN Reason: Saline Flush Throat Lozenges (Cepastat Lozenges) 1 ken PO PRN PRN PRN Reason: .COUGH Tramadol HCl (Ultram) 50 mg PO Q4H PRN PRN Reason: Pain Warfarin Sodium (Coumadin) 7.5 mg PO 1700 [facility]
[2018-02-14] MEDS: Warfarin Sodium 7.5 MG TAB PO SCH (18:22)
[2018-02-14] MEDS: Simvastatin 40 MG TAB PO SCH (20:38)
[2018-02-15 04:23] LABS: #Eosinphils 0.4 thou/uL (0.0-0.7); #Lymphocytes 1.7 thou/uL (1.20-3.40); #Monocytes 0.8 thou/uL (0.11-0.59); #Neutrophils 5.1 thou/uL (1.40-6.50); %Basophils 0.4 % (0.0-1.0); %Lymphocytes 21.5 % (21.0-51.0); %Monocytes 9.7 % (0.0-10.0); %Neutrophils 63.3 % (42.0-75.0); Hemoglobin 12.2 g/dL (14.0-18.0); Mean Corpuscular HGB CONC 32.9 g/dL (32.0-36.0); Mean Corpuscular Hemoglobin 31.9 pg (27.0-31.0); Mean Corpuscular Volume 96.9 fL (78.0-98.0); Mean Platelet Volume 6.7 fL (7.4-10.4); Platelet Count 246 thou/uL (130-400); RBC Distribution Width 12.7 % (11.5-14.5); Red Blood Cell (RBC) Count 3.82 mill/uL (4.70-6.10); White Blood Cell (WBC) Count 8.1 thou/uL (4.8-10.8)
[2018-02-15 04:26] LABS: INR-International Normal Ratio 1.4; Prothrombin Time 16.8 SEC (12.0-14.7)
[2018-02-15 04:28] LABS: PTT 93.5 SEC (22.9-36.1)
[2018-02-15 04:42] LABS: Anion Gap 12 mmol/L (10-20); BUN (Urea Nitrogen) 21 mg/dL (8.4-25.7); Calc. Creatinine Clearance 50 mL/min (70-130); Calcium 9.1 mg/dL (7.8-10.44); Carbon Dioxide 31 mmol/L (23-31); Chloride 101 mmol/L (98-107); Estimated GFR-MDRD 38; Glucose 119 mg/dL (83-110); Potassium 3.9 mmol/L (3.5-5.1); Sodium 140 mmol/L (136-145)
[2018-02-15] MEDS: Heparin 25,000 units/D5W 500 ML IV SCH (08:17)
[2018-02-15] MEDS: Senokot S 8.6-50 MG TAB PO SCH ×2 (08:19→20:54)
[2018-02-15] MEDS: Ferrous Sulfate 325 MG TAB PO SCH ×2 (08:19→17:06)
[2018-02-15] MEDS: Vit A,C & E/Lutein/Minerals Tablet PO SCH ×2 (08:19→20:54)
[2018-02-15] MEDS: Polyethylene Glycol 3350 17 GM Packet PO SCH (08:19)
[2018-02-15] MEDS: Furosemide 40 MG TAB PO SCH (08:20)
[2018-02-15] MEDS: Potassium Chloride 10 MEQ TAB PO SCH (08:20)
--- NOTE | 2018-02-15 12:14 | PRG ---
DATE OF SERVICE: 02/14/2018 SUBJECTIVE: The patient states he is doing well, has had no problems. We are planning to remove his stent today. His CBI has been relatively light pink on a slow drip. OBJECTIVE: VITAL SIGNS: Temperature 97.9, pulse 82, respirations 20, blood pressure 120/76 , saturation 92% on room air. GENERAL: No apparent distress. Communicative and alert. CARDIOVASCULAR: Regular rate and rhythm. Loud murmur. ABDOMEN: Soft, nontender, nondistended. CHEST: Clear anteriorly. GENITOURINARY: Alejo catheter in place on CBI with slow drip with light red urine. EXTREMITIES: 3+ edema, stable. LABORATORY DATA: The patient's creatinine is 0.99, hemoglobin 12.7. PROCEDURE: The patient was dosed with 1 g of ampicillin and 80 mg of gentamicin prior to cystoscopy and stent removal. The procedure was done at bedside. The patient was left in the supine position and prepped and draped in usual sterile fashion. After timeout, a flexible cystoscope was used to gently cannulate in through the urethra. The Alejo catheter was removed prior to initiating the procedure. The urethra was normal without any strictures. The prostate looked hyperemic but otherwise without any significant bleeding was mildly obstructive. Within the bladder lumen, there was a significant amount of hematuria and some clot which precluded a proper visualization. After some investigation, the stent was identified. Flexible graspers were used to grasp the stent and removed it in its entirety. ESTIMATED BLOOD LOSS: Minimal. COMPLICATIONS: None. ASSESSMENT AND PLAN: An 87-year-old white male requiring anticoagulation on heparin drip with persistent hematuria with successful stent removal today after his ureteroscopy and stone removal. I do expect his hematuria to subsequently clear. We will continue to check on him and keep his CBI going until his hematuria slows down and stops. I do anticipate that it will stop once the offending irritant is removed. I will continue to follow his labs, and we will stop his CBI once his hematuria is light enough and may consider a voiding trial at which point the patient should be able to be discharged home once his anticoagulation is satisfactory by [facility]. EMMA
--- NOTE | 2018-02-15 15:35 | PDOC.PN ---
- Subjective Encounter Start Date: 02/15/18 Encounter Start Time: 15:34 Subjective: feels better.just weak. -: lives alone and normally able to take care of himself - Objective MAR Reviewed: Yes Vital Signs & Weight: Vital Signs (12 hours) Temp Pulse Resp BP Pulse Ox 02/15/18 12:19 18 93 L 02/15/18 12:05 93 L 02/15/18 11:32 98 F 80 20 117/73 91 L 02/15/18 07:33 97.9 F 82 20 121/77 92 L 02/15/18 07:26 92 L 02/15/18 03:52 98.7 F 74 16 120/76 92 L Weight Weight 246 lb I&O: 02/14/18 02/15/18 02/16/18 06:59 06:59 06:59 Intake Total 264 Output Total 2850 1974 -2585 Result Diagrams: 02/15/18 03:12 02/15/18 03:12 Additional Labs: Laboratory Tests 02/11/18 02/13/18 02/14/18 04:59 05:13 04:43 Creatinine 1.27 1.15 0.99 02/15/18 03:12 Creatinine 1.70 H Phys Exam - Physical Examination Constitutional: NAD HEENT: PERRLA, moist MMs, sclera anicteric, TM's clear, oral pharynx no lesions , 2+ tonsils Neck: no nodes, no JVD, supple, full ROM Respiratory: no wheezing, no rales, no rhonchi, clear to auscultation bilateral Cardiovascular: RRR, no significant murmur, no rub Gastrointestinal: soft, non-tender, no distention, positive bowel sounds Musculoskeletal: no edema, pulses present pinkish urine in bag Neurological: non-focal, normal sensation, moves all 4 limbs Psychiatric: normal affect, A&O x 3 Dx/Plan (1) Hematuria Code(s): R31.9 - HEMATURIA, UNSPECIFIED Status: Acute Comment: hemoglobin 12.2 today, continue heparin drip (2) MICHELLE (obstructive sleep apnea) Code(s): G47.33 - OBSTRUCTIVE SLEEP APNEA (ADULT) (PEDIATRIC) Status: Chronic (3) Venous stasis dermatitis of both lower extremities Code(s): I87.2 - VENOUS INSUFFICIENCY (CHRONIC) (PERIPHERAL) Status: Chronic (4) HLD (hyperlipidemia) Code(s): E78.5 - HYPERLIPIDEMIA, UNSPECIFIED Status: Chronic Comment: continue statin. (5) HTN (hypertension) Code(s): I10 - ESSENTIAL (PRIMARY) HYPERTENSION Status: Chronic Comment: controlled. - Plan PT/OT, out of bed/ambulate, DVT proph w/SCDs Uretheral stent removed today.cont CBI per urology -: H/H stable. -: once cleared for restarting coumadin,gely tomorrow,will bridge w IV hepar -: rehab eval. -: IM team will follow.hematuria seems to be resolving * . Review of Systems - Review of Systems Constitutional: weakness, malaise ENT: negative: Ear Pain, Ear Discharge, Nose Pain, Nose Discharge, Nose Congestion, Mouth Pain, Mouth Swelling, Throat Pain, Throat Swelling, Other Respiratory: negative: Cough, Dry, Shortness of Breath, Hemoptysis, SOB with Excertion, Pleuritic Pain, Sputum, Wheezing Cardiovascular: negative: chest pain, palpitations, orthopnea, paroxysmal nocturnal dyspnea, edema, light headedness, other Gastrointestinal: negative: Nausea, Vomiting, Abdominal Pain, Diarrhea, Constipation, Melena, Hematochezia, Other Genitourinary: negative: Dysuria, Frequency, Incontinence, Hematuria, Retention , Other Musculoskeletal: negative: Neck Pain, Shoulder Pain, Arm Pain, Back Pain, Hand Pain, Leg Pain, Foot Pain, Other Neurological: negative: Weakness, Numbness, Incoordination, Change in Speech, Confusion, Seizures, Other - Medications/Allergies Allergies/Adverse Reactions: Allergies Allergy/AdvReac Type Severity Reaction Status Date / Time No Known Drug Allergies Allergy Verified 02/09/18 20:38 Medications: Current Medications Acetaminophen (Tylenol) 650 mg PO Q4H PRN PRN Reason: Headache, Aches or Pain Last Admin: 02/14/18 14:23 Dose: 650 mg Aspirin (Aspirin Chewable) 81 mg PO DAILY [facility] Last Admin: 02/15/18 08:19 Dose: 81 mg Bisacodyl (Dulcolax) 5 mg PO DAILYPRN PRN PRN Reason: Constipation Cholecalciferol (Vitamin D3) 1,000 units PO DAILY [facility] Last Admin: 02/15/18 08:19 Dose: 1,000 units Ferrous Sulfate (Feosol) 325 mg PO BID-[facility] Last Admin: 02/15/18 08:19 Dose: 325 mg Furosemide (Lasix) 40 mg PO DAILY [facility] Last Admin: 02/15/18 08:20 Dose: 40 mg Heparin Sodium/Dextrose (Heparin 25,000 Units/D5w 500 Ml) 500 mls @ 0 mls/hr IV INF [facility]; Protocol Last Admin: 02/15/18 08:17 Dose: 500 mls Miscellaneous Medication (Pharmacy To Dose) 1 each PO .WARFARIN [facility] Morphine Sulfate (Morphine) 2 mg SLOW IVP Q2H PRN PRN Reason: PAIN IF UNABLE TO TAKE PO Multivitamins/Minerals (Ocuvite With Lutein) 1 tab PO BID [facility] Last Admin: 02/15/18 08:19 Dose: 1 tab Oxybutynin Chloride (Ditropan) 5 mg PO Q8H PRN PRN Reason: Bladder Spasms Last Admin: 02/14/18 09:40 Dose: 5 mg Polyethylene Glycol (Miralax) 17 gm PO DAILY [facility] Last Admin: 02/15/18 08:19 Dose: 17 gm Polyvinyl Alcohol/Povidone (Refresh Classic Eye Drops) 0 each EA EYE Q4H PRN PRN Reason: Dry Eyes Last Admin: 02/13/18 08:01 Dose: 1 each Potassium Chloride (Klor-Con 10) 10 meq PO QA-[facility] Last Admin: 02/15/18 08:20 Dose: 10 meq Senna/Docusate Sodium (Senokot S) 1 tab PO BID [facility] Last Admin: 02/15/18 08:19 Dose: 1 tab Simvastatin (Zocor) 40 mg PO [facility] Last Admin: 02/14/18 20:38 Dose: 40 mg Sodium Chloride (Flush - Normal Saline) 10 ml IVF PRN PRN PRN Reason: Saline Flush Sodium Chloride (Flush - Normal Saline) 10 ml IVF BID [facility] Last Admin: 02/15/18 08:20 Dose: Not Given Sodium Chloride (Flush - Normal Saline) 10 ml IVF PRN PRN PRN Reason: Saline Flush Throat Lozenges (Cepastat Lozenges) 1 ken PO PRN PRN PRN Reason: .COUGH Tramadol HCl (Ultram) 50 mg PO Q4H PRN PRN Reason: Pain Warfarin Sodium (Coumadin) 7.5 mg PO 1700 [facility] Last Admin: 02/14/18 18:22 Dose: 7.5 mg
[2018-02-15] MEDS: Warfarin Sodium 7.5 MG TAB PO SCH (17:07)
--- NOTE | 2018-02-15 18:44 | PRG ---
DATE OF SERVICE: 02/15/2018 SUBJECTIVE: The patient states he is doing fine, has no complaints. He has had significant weakness and has been unable to ambulate well on his own. He can only walk very short distances. His CBI wa s held earlier today and his urine has remained a watermelon juice color without any clots and no sig nificant hematuria. OBJECTIVE: VITAL SIGNS: Temperature 97.6, pulse 82, respirations 18, blood pressure 130/78, saturation 93% on r oom air. GENERAL: No apparent distress, communicative, alert. CARDIOVASCULAR: Regular rate and rhythm. Loud murmur. CHEST: Clear anteriorly. ABDOMEN: Soft, nontender, nondistended, positive bowel sounds. GENITOURINARY: Alejo catheter was discontinued, but was a watermelon color juice within the tubing w ithout clots. EXTREMITIES: 3+ edema, stable. LABORATORY DATA: The full sets of labs are in the [facility] system, which I have reviewed. Of note, the patient's hemoglobin is 12.2 with a creatinine of 1.7. ASSESSMENT AND PLAN: An 87-year-old white male with gross hematuria secondary to full anticoagulatio n, status post ureteroscopy. His hematuria is now clearing, now the stent has been removed and there is no longer any irritation within his urinary tract. He has had an elevation in his creatinine, li edyta secondary to acute kidney injury from gentamicin administration yesterday. He only received a s tammy dose, so I do anticipate that his creatinine will improve, but we will continue to monitor and I will check his labs again tomorrow. If there is further elevation in his creatinine, I may consult Nephrology for further assistance and plan for repeat renal ultrasound. He is not having any pain a t this time, however. From a disposition standpoint, the patient shows significant weakness and I am not entirely convinced that he will be safe going home by himself with inability to walk or stand up or get out of bed on his own. I think the patient may be a good candidate for inpatient rehabilitat ion. I will consult case management as well as an inpatient physical therapy consult to see if he ne eds disposition other than going to his house which at this time I do not think is the best option fo r him.
[2018-02-15] MEDS: Simvastatin 40 MG TAB PO SCH (20:54)
[2018-02-16 05:34] LABS: INR-International Normal Ratio 1.6; Prothrombin Time 19.4 SEC (12.0-14.7)
[2018-02-16 05:36] LABS: PTT 99.6 SEC (22.9-36.1)
[2018-02-16] MEDS: Heparin 25,000 units/D5W 500 ML IV SCH (06:29)
[2018-02-16] MEDS: Potassium Chloride 10 MEQ TAB PO SCH (08:47)
[2018-02-16] MEDS: Senokot S 8.6-50 MG TAB PO SCH ×2 (08:47→20:09)
[2018-02-16] MEDS: Polyethylene Glycol 3350 17 GM Packet PO SCH (08:47)
[2018-02-16] MEDS: Furosemide 40 MG TAB PO SCH (08:47)
[2018-02-16] MEDS: Vit A,C & E/Lutein/Minerals Tablet PO SCH ×2 (08:47→20:09)
[2018-02-16] MEDS: Ferrous Sulfate 325 MG TAB PO SCH ×2 (08:47→16:30)
[2018-02-16 09:15] LABS: Anion Gap 11 mmol/L (10-20); BUN (Urea Nitrogen) 26 mg/dL (8.4-25.7); Calc. Creatinine Clearance 42 mL/min (70-130); Calcium 9.3 mg/dL (7.8-10.44); Carbon Dioxide 29 mmol/L (23-31); Chloride 101 mmol/L (98-107); Estimated GFR-MDRD 31; Glucose 123 mg/dL (83-110); Sodium 137 mmol/L (136-145)
--- NOTE | 2018-02-16 13:37 | ULT ---
RENAL ULTRASOUND: HISTORY: Acute kidney injury. Renal stones. Evaluate for hydro. COMPARISON: Correlation is made to CT of 12/08/2017. FINDINGS: The left kidney measures 12 cm length. There is mild left hydronephrosis. The right kidney measures 10 cm in length. A cyst from the superior right kidney is seen measuring 3-4 cm. This corresponds to recent CT. The urinary bladder is only mildly distended. There appears to be mild bladder wall thickening. IMPRESSION: Moderate left hydronephrosis. POS: H
--- NOTE | 2018-02-16 14:20 | PDOC.PN ---
- Subjective Encounter Start Date: 02/16/18 Encounter Start Time: 14:18 Subjective: feels poorly -: having tomasa blood in urine.Alejo/CBI Discontinued yesterday - Objective MAR Reviewed: Yes Vital Signs & Weight: Vital Signs (12 hours) Temp Pulse Resp BP BP Pulse Ox 02/16/18 10:51 97.8 F 80 18 112/71 92 L 02/16/18 08:30 92 L 02/16/18 08:12 97.9 F 77 18 114/74 92 L 02/16/18 04:26 98.0 F 87 16 136/83 91 L Weight Weight 246 lb I&O: 02/15/18 02/16/18 02/17/18 06:59 06:59 06:59 Intake Total 516.4 Output Total 1974 2514 Balance -1974 -1997. Result Diagrams: 02/15/18 03:12 02/16/18 05:13 Phys Exam - Physical Examination Constitutional: NAD sitting on toilet w tomasa blood around the seat HEENT: PERRLA, moist MMs, sclera anicteric, oral pharynx no lesions Respiratory: no wheezing, no rales Cardiovascular: RRR Gastrointestinal: soft, non-tender, no distention, positive bowel sounds Musculoskeletal: no edema Neurological: moves all 4 limbs Psychiatric: normal affect, A&O x 3 Skin: no rash Dx/Plan (1) Hematuria Code(s): R31.9 - HEMATURIA, UNSPECIFIED Status: Acute (2) MICHELLE (obstructive sleep apnea) Code(s): G47.33 - OBSTRUCTIVE SLEEP APNEA (ADULT) (PEDIATRIC) Status: Chronic (3) Venous stasis dermatitis of both lower extremities Code(s): I87.2 - VENOUS INSUFFICIENCY (CHRONIC) (PERIPHERAL) Status: Chronic (4) HLD (hyperlipidemia) Code(s): E78.5 - HYPERLIPIDEMIA, UNSPECIFIED Status: Chronic Comment: continue statin. (5) HTN (hypertension) Code(s): I10 - ESSENTIAL (PRIMARY) HYPERTENSION Status: Chronic Comment: controlled. - Plan PT/OT, DVT proph w/SCDs stop heparin drip.also on coumadin.INR 1.6 today -: renal Fx worsening.US shows Left hydronephrosis -: will consult Nephrology.rest per urology -: monitor H/H serially. -: monitor daily INR. * . Review of Systems - Review of Systems Constitutional: weakness, malaise. negative: fever, chills, sweats, other ENT: negative: Ear Pain, Ear Discharge, Nose Pain, Nose Discharge, Nose Congestion, Mouth Pain, Mouth Swelling, Throat Pain, Throat Swelling, Other Respiratory: negative: Cough, Dry, Shortness of Breath, Hemoptysis, SOB with Excertion, Pleuritic Pain, Sputum, Wheezing Cardiovascular: negative: chest pain, palpitations, orthopnea, paroxysmal nocturnal dyspnea, edema, light headedness, other Gastrointestinal: negative: Nausea, Vomiting, Abdominal Pain, Diarrhea, Constipation, Melena, Hematochezia, Other Genitourinary: Hematuria. negative: Dysuria, Frequency, Incontinence, Retention , Other Musculoskeletal: negative: Neck Pain, Shoulder Pain, Arm Pain, Back Pain, Hand Pain, Leg Pain, Foot Pain, Other Neurological: negative: Weakness, Numbness, Incoordination, Change in Speech, Confusion, Seizures, Other - Medications/Allergies Allergies/Adverse Reactions: Allergies Allergy/AdvReac Type Severity Reaction Status Date / Time No Known Drug Allergies Allergy Verified 02/09/18 20:38 Medications: Current Medications Acetaminophen (Tylenol) 650 mg PO Q4H PRN PRN Reason: Headache, Aches or Pain Last Admin: 02/14/18 14:23 Dose: 650 mg Aspirin (Aspirin Chewable) 81 mg PO DAILY [facility] Last Admin: 02/16/18 08:47 Dose: 81 mg Bisacodyl (Dulcolax) 5 mg PO DAILYPRN PRN PRN Reason: Constipation Cholecalciferol (Vitamin D3) 1,000 units PO DAILY [facility] Last Admin: 02/16/18 08:47 Dose: 1,000 units Ferrous Sulfate (Feosol) 325 mg PO BID-[facility] Last Admin: 02/16/18 08:47 Dose: 325 mg Furosemide (Lasix) 40 mg PO DAILY [facility] Last Admin: 02/16/18 08:47 Dose: 40 mg Miscellaneous Medication (Pharmacy To Dose) 1 each PO .WARFARIN [facility] Morphine Sulfate (Morphine) 2 mg SLOW IVP Q2H PRN PRN Reason: PAIN IF UNABLE TO TAKE PO Multivitamins/Minerals (Ocuvite With Lutein) 1 tab PO BID [facility] Last Admin: 02/16/18 08:47 Dose: 1 tab Oxybutynin Chloride (Ditropan) 5 mg PO Q8H PRN PRN Reason: Bladder Spasms Last Admin: 02/14/18 09:40 Dose: 5 mg Polyethylene Glycol (Miralax) 17 gm PO DAILY [facility] Last Admin: 02/16/18 08:47 Dose: Not Given Polyvinyl Alcohol/Povidone (Refresh Classic Eye Drops) 0 each EA EYE Q4H PRN PRN Reason: Dry Eyes Last Admin: 02/13/18 08:01 Dose: 1 each Potassium Chloride (Klor-Con 10) 10 meq PO QAM-[facility] Last Admin: 02/16/18 08:47 Dose: 10 meq Senna/Docusate Sodium (Senokot S) 1 tab PO BID [facility] Last Admin: 02/16/18 08:47 Dose: Not Given Simvastatin (Zocor) 40 mg PO HS [facility] Last Admin: 02/15/18 20:54 Dose: 40 mg Sodium Chloride (Flush - Normal Saline) 10 ml IVF BID [facility] Last Admin: 02/16/18 08:47 Dose: Not Given Sodium Chloride (Flush - Normal Saline) 10 ml IVF PRN PRN PRN Reason: Saline Flush Throat Lozenges (Cepastat Lozenges) 1 ken PO PRN PRN PRN Reason: .COUGH Tramadol HCl (Ultram) 50 mg PO Q4H PRN PRN Reason: Pain Warfarin Sodium (Coumadin) 10 mg PO 1700 [facility]
[2018-02-16] MEDS ORDERED: Sodium Chloride 0.9% 1,000 ML IV SCH (16:15)
[2018-02-16] MEDS: Polyvinyl Alcohol 1.4%/Povidone 0.6% Opth Drops EA EYE PRN (16:21)
[2018-02-16] MEDS: Warfarin Sodium 5 MG TAB PO SCH (16:30)
[2018-02-16] MEDS: Sodium Chloride 0.9% 1,000 ML IV SCH ×2 (16:31→20:09)
[2018-02-16] MEDS: Simvastatin 40 MG TAB PO SCH (20:09)
[2018-02-16] MEDS: Cepastat Lozenges 1 LOZ PO PRN (20:57)
[2018-02-17 05:00] LABS: Hemoglobin 11.5 g/dL (14.0-18.0)
[2018-02-17 05:03] LABS: Prothrombin Time 22.5 SEC (12.0-14.7)
[2018-02-17 05:11] LABS: Anion Gap 12 mmol/L (10-20); BUN (Urea Nitrogen) 28 mg/dL (8.4-25.7); Calc. Creatinine Clearance 47 mL/min (70-130); Calcium 8.8 mg/dL (7.8-10.44); Carbon Dioxide 26 mmol/L (23-31); Chloride 103 mmol/L (98-107); Estimated GFR-MDRD 36; Glucose 102 mg/dL (83-110); Potassium 3.8 mmol/L (3.5-5.1); Sodium 137 mmol/L (136-145)
--- NOTE | 2018-02-17 07:40 | CON ---
DATE OF CONSULTATION: 02/16/2018 CONSULTING PHYSICIAN: Dr. Goodman. REASON FOR CONSULTATION: Acute kidney injury. REASON FOR ADMISSION: Hematuria. HISTORY OF PRESENT ILLNESS: This is an 87-year-old male with history of coronary artery disease, venous stasis, hypertension who came to the hospital with the above complaints and had a creatinine of 0.9, this morning was 2.03, and Nephrology is consulted. The patient was on continuous bladder irrigation which was stopped yesterday. He also had a renal ultrasound showed left-sided hydronephrosis. Patient denies any nausea, vomiting. I's and O's show it was on the negative side last few days. No history of hypotension. No history of contrast exposure. PAST MEDICAL HISTORY: Positive for coronary artery disease, mechanical heart valve, venous stasis, sleep apnea, hypertension. PAST SURGICAL HISTORY: Mechanical heart valve, right knee surgery, tonsillectomy, adenoidectomy, CABG. HOME MEDICATIONS: Potassium, vitamin D3, simvastatin, Lasix, aspirin, warfarin , tramadol. ALLERGIES: No known drug allergies. SOCIAL HISTORY: No smoking, alcohol or illicit drug use. FAMILY HISTORY: No history of any kidney disease. REVIEW OF SYSTEMS: The following complete review of systems was negative, unless otherwise mentioned in the HPI or below: Constitutional: Weight loss or gain, ability to conduct usual activities. Skin: Rash, itching. Eyes: Double vision, pain. ENT/Mouth: Nose bleeding, neck stiffness, pain, tenderness. Cardiovascular: Palpitations, dyspnea on exertion, orthopnea. Respiratory: Shortness of breath, wheezing, cough, hemoptysis, fever or night sweats. Gastrointestinal: Poor appetite, abdominal pain, heartburn, nausea, vomiting, constipation, or diarrhea. Genitourinary: Urgency, frequency, dysuria, nocturia. Musculoskeletal: Pain, swelling. Neurologic/Psychiatric: Anxiety, depression. Allergy/Immunologic: Skin rash, bleeding tendency. PHYSICAL EXAMINATION: GENERAL: This is an obese male in no apparent distress. VITAL SIGNS: Temperature 98.4, pulse 73, respiratory rate . LABORATORY DATA: Hemoglobin is 12.2, potassium is 4.0, BUN is 26, creatinine is 2.03. ASSESSMENT AND PLAN: 1. Acute kidney injury most likely volume depletion. Avoid nephrotoxins. We will hold Lasix and gently hydrate him. Cardiac status is not known. We will recommend echocardiogram if showing any signs of fluid overload. 2. Chronic venous stasis. We will hold Lasix for now. 3. We will also stop potassium given the acute kidney injury. 4. Renal diet. 5. Hypertension, stable. 6. Hypokalemia - We will stop potassium for now. 7. Renally dose medications. Avoid nephrotoxins, renal diet and will continue to follow. Thank you for the consult. EMMA
[2018-02-17] MEDS: Vit A,C & E/Lutein/Minerals Tablet PO SCH ×2 (08:25→19:50)
[2018-02-17] MEDS: Polyethylene Glycol 3350 17 GM Packet PO SCH (08:29)
[2018-02-17] MEDS: Sodium Chloride 0.9% 1,000 ML IV SCH ×2 (08:29→19:50)
[2018-02-17] MEDS: Senokot S 8.6-50 MG TAB PO SCH ×2 (08:29→19:48)
[2018-02-17] MEDS: Ferrous Sulfate 325 MG TAB PO SCH ×2 (08:29→16:49)
--- NOTE | 2018-02-17 14:45 | PDOC.PN ---
- Subjective Encounter Start Date: 02/17/18 Encounter Start Time: 14:43 Subjective: feels well. very sleepy. -: RN reports mild amount of blood in urine - Objective MAR Reviewed: Yes Vital Signs & Weight: Vital Signs (12 hours) Temp Pulse Resp BP BP Pulse Ox 02/17/18 11:28 97.4 F L 80 14 139/77 92 L 02/17/18 07:45 94 L 02/17/18 07:44 97.8 F 80 14 143/87 H 94 L 02/17/18 03:52 97.7 F 80 16 127/74 91 L Weight Weight 246 lb I&O: 02/16/18 02/17/18 02/18/18 06:59 06:59 06:59 Intake Total 516.4 1700 Output Total 2515 750 Balance -1998.6 950 Result Diagrams: 02/17/18 04:08 02/17/18 04:08 Phys Exam - Physical Examination Constitutional: NAD HEENT: PERRLA, moist MMs, sclera anicteric, oral pharynx no lesions Neck: no nodes, no JVD, supple, full ROM Respiratory: no wheezing, no rales, no rhonchi, clear to auscultation bilateral Cardiovascular: RRR, no significant murmur, no rub Gastrointestinal: soft, non-tender, no distention, positive bowel sounds Musculoskeletal: no edema, pulses present Neurological: non-focal, normal sensation, moves all 4 limbs Skin: no rash Dx/Plan (1) Hematuria Code(s): R31.9 - HEMATURIA, UNSPECIFIED Status: Acute (2) MICHELLE (obstructive sleep apnea) Code(s): G47.33 - OBSTRUCTIVE SLEEP APNEA (ADULT) (PEDIATRIC) Status: Chronic (3) Venous stasis dermatitis of both lower extremities Code(s): I87.2 - VENOUS INSUFFICIENCY (CHRONIC) (PERIPHERAL) Status: Chronic (4) HLD (hyperlipidemia) Code(s): E78.5 - HYPERLIPIDEMIA, UNSPECIFIED Status: Chronic Comment: continue statin. (5) HTN (hypertension) Code(s): I10 - ESSENTIAL (PRIMARY) HYPERTENSION Status: Chronic Comment: controlled. (6) Mechanical heart valve present Code(s): Z95.2 - PRESENCE OF PROSTHETIC HEART VALVE Status: Chronic (7) Chronic anticoagulation Code(s): Z79.01 - HALFWAY (CURRENT) USE OF ANTICOAGULANTS Status: Chronic - Plan DVT proph w/SCDs discussed w urology.H/H stable. -: cont Coumadin.INR therapeutic -: SNIF eval. * . Review of Systems - Review of Systems Other: limited ROS due to somnolence - Medications/Allergies Allergies/Adverse Reactions: Allergies Allergy/AdvReac Type Severity Reaction Status Date / Time No Known Drug Allergies Allergy Verified 02/09/18 20:38 Medications: Current Medications Acetaminophen (Tylenol) 650 mg PO Q4H PRN PRN Reason: Headache, Aches or Pain Last Admin: 02/14/18 14:23 Dose: 650 mg Aspirin (Aspirin Chewable) 81 mg PO DAILY [facility] Last Admin: 02/17/18 08:25 Dose: 81 mg Bisacodyl (Dulcolax) 5 mg PO DAILYPRN PRN PRN Reason: Constipation Cholecalciferol (Vitamin D3) 1,000 units PO DAILY [facility] Last Admin: 02/17/18 08:25 Dose: 1,000 units Ferrous Sulfate (Feosol) 325 mg PO BID-[facility] Last Admin: 02/17/18 08:29 Dose: 325 mg Sodium Chloride (Normal Saline 0.9%) 1,000 mls @ 50 mls/hr IV .Q20H [facility] Last Admin: 02/17/18 08:29 Dose: Not Given Miscellaneous Medication (Pharmacy To Dose) 1 each PO .WARFARIN [facility] Morphine Sulfate (Morphine) 2 mg SLOW IVP Q2H PRN PRN Reason: PAIN IF UNABLE TO TAKE PO Multivitamins/Minerals (Ocuvite With Lutein) 1 tab PO BID [facility] Last Admin: 02/17/18 08:25 Dose: 1 tab Oxybutynin Chloride (Ditropan) 5 mg PO Q8H PRN PRN Reason: Bladder Spasms Last Admin: 02/14/18 09:40 Dose: 5 mg Polyethylene Glycol (Miralax) 17 gm PO DAILY [facility] Last Admin: 02/17/18 08:29 Dose: Not Given Polyvinyl Alcohol/Povidone (Refresh Classic Eye Drops) 0 each EA EYE Q4H PRN PRN Reason: Dry Eyes Last Admin: 02/16/18 16:21 Dose: 1 each Senna/Docusate Sodium (Senokot S) 1 tab PO BID [facility] Last Admin: 02/17/18 08:29 Dose: Not Given Simvastatin (Zocor) 40 mg PO HS [facility] Last Admin: 02/16/18 20:09 Dose: 40 mg Sodium Chloride (Flush - Normal Saline) 10 ml IVF BID [facility] Last Admin: 02/17/18 08:29 Dose: Not Given Sodium Chloride (Flush - Normal Saline) 10 ml IVF PRN PRN PRN Reason: Saline Flush Last Admin: 02/16/18 16:31 Dose: 10 ml Throat Lozenges (Cepastat Lozenges) 1 ken PO PRN PRN PRN Reason: .COUGH Last Admin: 02/16/18 20:57 Dose: 1 ken Tramadol HCl (Ultram) 50 mg PO Q4H PRN PRN Reason: Pain Warfarin Sodium (Coumadin) 10 mg PO 1700 [facility] Last Admin: 02/16/18 16:30 Dose: 10 mg
--- NOTE | 2018-02-17 16:42 | PRG ---
DATE OF SERVICE: 02/17/2018 SUBJECTIVE: The patient is very sleepy this morning. He does wake up to stimulation, answers questi ons, but then falls back asleep. Per nursing, he does this every morning and usually is better once he is fully awake. OBJECTIVE: VITAL SIGNS: Temperature 97.4, pulse 80, respirations 14, blood pressure 139/77, saturation 92% on r oom air. HEENT: No apparent distress, sleeping comfortably. CARDIOVASCULAR: Regular rate and rhythm. ABDOMEN: Soft, nontender, nondistended, positive bowel sounds. GENITOURINARY: Normal-appearing penis. No catheter. EXTREMITIES: 3+ edema, stable with stasis dermatitis. LABORATORY DATA: The full set of labs in the [facility] system, which I reviewed. Of note, the patien t's hemoglobin is stable at 11.5. Creatinine is decreasing to 1.81. ASSESSMENT AND PLAN: An 87-year-old white male with mechanical heart valve, on anticoagulation, stat us post ureteroscopy and stone removal with subsequent stent removal approximately 3 days ago with ve ry bloody urine still. I have spoken with the nursing staff and they stated his urine is still red; however, he has continued to urinate easily without any difficulty and with no clots. As such, I am not concerned about him going into clot retention. Given that he is still urinating properly. I do expect him to have hematuria for probably around 2 weeks given that he takes Coumadin as such over ti me it will eventually stop and he should not have any further problems. His ultrasound yesterday did demonstrate some hydronephrosis which I strongly suspect is secondary to edema and some mild clots w ithin the ureter. These should resolve without a problem. His creatinine is not decreasing which ma kes me less concerned that this is the source of his elevated creatinine, which I still believe is du e to the gentamicin. I have spoken with Dr. Miner and she feels that it would be best for him to s williams 1 more day, so we will keep in the hospital 1 more day and plan for discharge tomorrow. I have a lready spoken to him previously about going to a [facility] facility, which I think would be the best option for him given that he lives alone and does have significant comorbidities with limited f unctionality; however, he absolutely refuses to go to [facility] and states he wants to go home. Physical therapy states he does not require inpatient rehabilitation as he is able to transfer rico d get out of bed and get on the toilet by himself without difficulty and the majority of the day, he uses a scooter within the home. As such, given the patient is refusing to go to assisted living or [facility] nursing facilities per his wishes, we will plan for discharge tomorrow pending he does not hav e any further medical problems.
[2018-02-17] MEDS: Warfarin Sodium 5 MG TAB PO SCH (16:49)
--- NOTE | 2018-02-17 17:18 | PRG ---
DATE OF SERVICE: 02/17/2018 SUBJECTIVE: Patient was seen and examined at bedside and overnight events noted. Patient denies any shortness of breath or chest pain or palpitation. No history of nausea or vomiting or diarrhea or f ever or chills or cramps. OBJECTIVE: GENERAL: This is a well-built male in no apparent distress. VITAL SIGNS: Temperature 97.6, pulse 60, respiratory rate 18, blood pressure 113/76. HEENT: Atraumatic, normocephalic. Oral mucosa is moist. NECK: Supple. CARDIOVASCULAR: S1, S2 heard. Rate and rhythm regular. RESPIRATORY: Clear to auscultation. GASTROINTESTINAL: Abdomen is soft. MUSCULOSKELETAL: No tenderness. No edema. DERMATOLOGIC: No skin rash. NEUROLOGIC: Alert and awake and oriented x3. No focal neurologic deficits. Moving all the extremiti es. PSYCHIATRIC: Mood and affect normal. LABORATORY DATA: Potassium is 3.8, BUN 28, creatinine is 1.8. ASSESSMENT AND PLAN: 1. Acute kidney injury. Avoid nephrotoxins. Continue hydration as tolerated. 2. Chronic venous stasis. 3. Hypertension, stable. 4. Edema, controlled. 5. We will continue IV fluids for 1 more day.
[2018-02-17] MEDS: Simvastatin 40 MG TAB PO SCH (19:50)
[2018-02-17] MEDS: Cepastat Lozenges 1 LOZ PO PRN (19:50)
[2018-02-18] MEDS: Cepastat Lozenges 1 LOZ PO PRN ×2 (02:46→08:57)
[2018-02-18 05:35] LABS: INR-International Normal Ratio 2.5; Prothrombin Time 27.1 SEC (12.0-14.7)
[2018-02-18] MEDS ORDERED: Warfarin Sodium 5 MG TAB PO SCH (07:38)
[2018-02-18] MEDS: Vit A,C & E/Lutein/Minerals Tablet PO SCH (08:58)
[2018-02-18] MEDS: Polyethylene Glycol 3350 17 GM Packet PO SCH (08:58)
[2018-02-18] MEDS: Ferrous Sulfate 325 MG TAB PO SCH (08:58)
[2018-02-18] MEDS: Senokot S 8.6-50 MG TAB PO SCH (08:58)
[2018-02-18 09:39] LABS: Anion Gap 13 mmol/L (10-20); BUN (Urea Nitrogen) 24 mg/dL (8.4-25.7); Calc. Creatinine Clearance 53 mL/min (70-130); Calcium 9.1 mg/dL (7.8-10.44); Carbon Dioxide 26 mmol/L (23-31); Chloride 105 mmol/L (98-107); Estimated GFR-MDRD 41; Glucose 127 mg/dL (83-110); Potassium 3.8 mmol/L (3.5-5.1); Sodium 140 mmol/L (136-145)
[2018-02-18] MEDS: Polyvinyl Alcohol 1.4%/Povidone 0.6% Opth Drops EA EYE PRN (09:50)
--- NOTE | 2018-02-18 10:25 | PRG ---
DATE OF SERVICE: 02/18/2018 SUBJECTIVE: The patient states he is feeling fine. He is having a lot of urinary frequency, but sta jelani his urine has cleared up and he is no longer having any hematuria. He feels very good. He has n o pain. His creatinine has decreased further. He denies any flank pain or difficulty with urination . OBJECTIVE: VITAL SIGNS: Temperature 97.2, pulse 90, respirations 23, blood pressure 133/74, saturation 92% on r oom air. GENERAL: No apparent distress, communicative, alert. CARDIOVASCULAR: Regular rate and rhythm. ABDOMEN: Soft, nontender, nondistended, positive bowel sounds. GENITOURINARY: Normal without edema. No blood at the meatus. EXTREMITIES: 3+ Edema, stable. Chronic stasis dermatitis. LUNGS: Clear anteriorly. LABORATORY DATA: A full set of labs in the [facility] system, which I reviewed. Of note, patient's he moglobin is 12 with a creatinine has decreased further down to 1.6. ASSESSMENT AND PLAN: An 87-year-old white male with gross hematuria after ureteroscopy secondary to anticoagulation for mechanical heart valve with acute kidney injury secondary gentamicin. The gentam icin seems to have worn off and the creatinine is decreasing nicely. He has mild hydronephrosis on u ltrasound which demonstrates that he likely had some edema and some minor blood clots within the urin e, but I do not think this is causing significant problems as he is asymptomatic and his creatinine i s decreasing. From my standpoint, his urination has cleared up quite significantly and I think he ca n be discharged home. He will follow up in my clinic in approximately 2 weeks for a postop check. Ariana aguirre was instructed to remain on his anticoagulation because of his mechanical heart valve.
--- NOTE | 2018-02-18 11:32 | PDOC.PN ---
- Subjective Encounter Start Date: 02/18/18 Encounter Start Time: 11:31 Subjective: feeels well. no more blood in urine -: discussed DC instructions. F/U w [facility] & for PT/INR -: no fever/chills/CP/SOB - Objective MAR Reviewed: Yes Vital Signs & Weight: Vital Signs (12 hours) Temp Pulse Resp BP BP Pulse Ox 02/18/18 07:27 97.2 F L 90 23 H 133/74 93 L 02/18/18 03:44 98 F 76 20 130/78 93 L 02/18/18 00:01 98 F 77 20 146/81 H 93 L Weight Weight 246 lb I&O: 02/17/18 02/18/18 02/19/18 06:59 06:59 05:59 Intake Total 1700 3100 Output Total 750 500 Balance 950 2600 Result Diagrams: 02/18/18 04:50 02/18/18 08:46 Phys Exam - Physical Examination Constitutional: NAD HEENT: PERRLA, moist MMs, sclera anicteric, oral pharynx no lesions Neck: no nodes, no JVD, supple, full ROM Respiratory: no wheezing, no rales, no rhonchi, clear to auscultation bilateral Cardiovascular: RRR, no significant murmur, no rub Gastrointestinal: soft, non-tender, no distention, positive bowel sounds Musculoskeletal: no edema, pulses present Neurological: non-focal, normal sensation, moves all 4 limbs Psychiatric: normal affect, A&O x 3 Skin: no rash Dx/Plan (1) Hematuria Code(s): R31.9 - HEMATURIA, UNSPECIFIED Status: Acute (2) MICHELLE (obstructive sleep apnea) Code(s): G47.33 - OBSTRUCTIVE SLEEP APNEA (ADULT) (PEDIATRIC) Status: Chronic (3) Venous stasis dermatitis of both lower extremities Code(s): I87.2 - VENOUS INSUFFICIENCY (CHRONIC) (PERIPHERAL) Status: Chronic (4) HLD (hyperlipidemia) Code(s): E78.5 - HYPERLIPIDEMIA, UNSPECIFIED Status: Chronic Comment: continue statin. (5) HTN (hypertension) Code(s): I10 - ESSENTIAL (PRIMARY) HYPERTENSION Status: Chronic Comment: controlled. (6) Mechanical heart valve present Code(s): Z95.2 - PRESENCE OF PROSTHETIC HEART VALVE Status: Chronic (7) Chronic anticoagulation Code(s): Z79.01 - [employer] (CURRENT) USE OF ANTICOAGULANTS Status: Chronic - Plan H/H stable. INR therapeutic.hematuria resolved -: Renal Fx improved -: OK to DC home from IM stand point. -: F/U w PCP in 2-3 days.Pt understood * . Review of Systems - Review of Systems Constitutional: negative: fever, chills, sweats, weakness, malaise, other ENT: negative: Ear Pain, Ear Discharge, Nose Pain, Nose Discharge, Nose Congestion, Mouth Pain, Mouth Swelling, Throat Pain, Throat Swelling, Other Respiratory: negative: Cough, Dry, Shortness of Breath, Hemoptysis, SOB with Excertion, Pleuritic Pain, Sputum, Wheezing Cardiovascular: negative: chest pain, palpitations, orthopnea, paroxysmal nocturnal dyspnea, edema, light headedness, other Gastrointestinal: negative: Nausea, Vomiting, Abdominal Pain, Diarrhea, Constipation, Melena, Hematochezia, Other Genitourinary: negative: Dysuria, Frequency, Incontinence, Hematuria, Retention , Other Neurological: negative: Weakness, Numbness, Incoordination, Change in Speech, Confusion, Seizures, Other - Medications/Allergies Allergies/Adverse Reactions: Allergies Allergy/AdvReac Type Severity Reaction Status Date / Time No Known Drug Allergies Allergy Verified 02/09/18 20:38 Medications: Current Medications Acetaminophen (Tylenol) 650 mg PO Q4H PRN PRN Reason: Headache, Aches or Pain Last Admin: 02/14/18 14:23 Dose: 650 mg Aspirin (Aspirin Chewable) 81 mg PO DAILY [facility] Last Admin: 02/18/18 08:57 Dose: 81 mg Bisacodyl (Dulcolax) 5 mg PO DAILYPRN PRN PRN Reason: Constipation Cholecalciferol (Vitamin D3) 1,000 units PO DAILY [facility] Last Admin: 02/18/18 08:58 Dose: 1,000 units Ferrous Sulfate (Feosol) 325 mg PO BID-[facility] Last Admin: 02/18/18 08:58 Dose: 325 mg Sodium Chloride (Normal Saline 0.9%) 1,000 mls @ 50 mls/hr IV .Q20H [facility] Last Admin: 02/17/18 19:50 Dose: 1,000 mls Miscellaneous Medication (Pharmacy To Dose) 1 each PO .WARFARIN [facility] Morphine Sulfate (Morphine) 2 mg SLOW IVP Q2H PRN PRN Reason: PAIN IF UNABLE TO TAKE PO Multivitamins/Minerals (Ocuvite With Lutein) 1 tab PO BID [facility] Last Admin: 02/18/18 08:58 Dose: 1 tab Oxybutynin Chloride (Ditropan) 5 mg PO Q8H PRN PRN Reason: Bladder Spasms Last Admin: 02/14/18 09:40 Dose: 5 mg Polyethylene Glycol (Miralax) 17 gm PO DAILY [facility] Last Admin: 02/18/18 08:58 Dose: Not Given Polyvinyl Alcohol/Povidone (Refresh Classic Eye Drops) 0 each EA EYE Q4H PRN PRN Reason: Dry Eyes Last Admin: 02/18/18 09:50 Dose: 1 each Senna/Docusate Sodium (Senokot S) 1 tab PO BID [facility] Last Admin: 02/18/18 08:58 Dose: Not Given Simvastatin (Zocor) 40 mg PO HS [facility] Last Admin: 02/17/18 19:50 Dose: 40 mg Sodium Chloride (Flush - Normal Saline) 10 ml IVF BID [facility] Last Admin: 02/18/18 08:59 Dose: Not Given Sodium Chloride (Flush - Normal Saline) 10 ml IVF PRN PRN PRN Reason: Saline Flush Last Admin: 02/16/18 16:31 Dose: 10 ml Throat Lozenges (Cepastat Lozenges) 1 ken PO PRN PRN PRN Reason: .COUGH Last Admin: 02/18/18 08:57 Dose: 1 ken Tramadol HCl (Ultram) 50 mg PO Q4H PRN PRN Reason: Pain Warfarin Sodium (Coumadin) 5 mg PO 1700 [facility]
[2018-02-18 12:10] VITALS: BP 139/88; TEMP 97.5
--- NOTE | 2018-02-18 13:05 | DIS ---
DATE OF ADMISSION: 02/09/2018 DATE OF DISCHARGE: 02/18/2018 ADMITTING DIAGNOSIS: Left ureteral stone. DISCHARGE DIAGNOSES: Left ureteral stone, gross hematuria and acute kidney injury. PROCEDURE PERFORMED: 1. Cystoscopy and left ureteroscopy with laser lithotripsy and placement of a stent. 2. Cystoscopy with stent removal. IMAGING: Obtained while inpatient, renal ultrasound demonstrating mild left hydronephrosis. BRIEF HISTORY: Mr. Perez is an 87-year-old white male who had presented for surgery of an obstructin g left ureteral stone. He is coming in for this surgery. The full H and P can be found in the scan portion of the [facility] system. HOSPITAL COURSE: After his surgery (please see operative note for details), the patient was in recov irene with plans to be discharged home; however, he had extremely bloody urine, which became concerning . Out of concern that he may end up in clot retention, we elected to keep him in the hospital on obs ervation. Unfortunately, the hematuria did not clear and his INR was found to be subtherapeutic. Th erefore, he was started on heparin drip out of concern for worsening hematuria, which had gotten quit e red. The patient had a catheter inserted for continuous bladder irrigation, which significantly cl eared up his urine. Unfortunately, every time the CBI was stopped, the patient had significant hemat uria again. By postoperative day 5, it was felt that the best course of action would be to go ahead and just remove the stent as it had been sufficient amount of time that the stent has been in place a nd was likely responsible for the ongoing bleeding. The patient was covered with ampicillin and gent amicin for stent removal given his mechanical heart valve and then had a cystoscopy at bedside with s uccessful stent removal. Afterwards, 3-way Alejo catheter was reinserted and the patient was put emanuel k on CBI and left on his heparin drip with anticoagulation. Medicine had been consulted, who had bee n following him and had recommended the heparin drip and was covering his mechanical heart valve prop hylaxis. During this time, the patient did become significantly weakened due to being in bed for hamilton g periods of time. Physical Therapy was consulted who was able to work with the patient and regain h is strength. There was some concern about him going home since he lives by himself. Case management was consulted and they talked with the patient about possibly going to a residential facility. The patient refused residential as he was only able to go to [facility] with his insurance an d he stated he did not want to go there and wanted to go home instead. He did not meet criteria for inpatient rehabilitation and physical therapist felt that he had sufficient strength to go home witho ut necessarily requiring either home health PT or inpatient rehabilitation. The patient's catheter w as removed after CBI was discontinued on postoperative day 7. The patient resumed normal voiding, wh ich was extremely bloody. Over the course of the next 2 days, the patient's urine cleared up signifi cantly to the point of being just a pale pink to yellowish color. At this point, it was felt that th e patient was sufficiently recovered from his surgery and hematuria that he was at low risk for going back into clot retention. He did have a lot of urinary frequency, but this was believed to be expec frances given the amount of work, which had been done in the bladder. Of note, after the patient receive d his gentamicin and ampicillin for his stent removal, the patient's creatinine did increase from 0.9 9 on 02/14/2018, up to 1.7 on 02/15/2018 and then 2.03 on 02/16/2018, subsequently decreased down to 1.8 and then 1.6 at the time of discharge. The renal ultrasound was obtained during this time, which only demonstrated mild left hydronephrosis, which I felt was most likely secondary to edema and some minor clots. I felt that the acute kidney injury was most likely due to the gentamicin administrati on and seemed to be recovering nicely. By the 02/18/2018, the patient was able to get out of bed on his own. He was ambulating. He was toileting well with very little blood in his urine and his creat inine had recovered. Both the hospitalist and myself felt that he would be reasonable enough to be d ischarged home. Both of us recommended that he would probably be best at [facility] with the low est risk of falls or having major problems where assistance would not be available; however, again th e patient refuses to go to residential and states he will be going home instead. As such, we golden l send the patient home per his request as we cannot force him to go to [facility]. All instruct ions were discussed with the patient. He has agreed to be discharged. DISPOSITION: Discharge to home. DISCHARGE CONDITION: Good. DISCHARGE MEDICATIONS: Include resuming all of his home medications including his home dose of Couma din and aspirin. The patient will not require any new prescriptions as he has sufficiently recovered due to his long hospitalization and does not need any new medications. DISCHARGE INSTRUCTIONS: Include to avoid any strenuous activity or heavy lifting. He should stay wi thin his fluid restriction requirements of approximately 1-1/2 liters per day, but should drink that amount to avoid dehydration. He should follow up with his primary care physician and with me as genie richards. His followup is in approximately 2 weeks for postop check.
--- NOTE | 2018-02-20 09:57 | PRG ---
Date of service: 02/18/2018 Subjective: Patient was seen and examined at bedside and overnight events noted. Patient denies any shortness of breath or chest pain or palpitation. No history of nausea or vomiting or diarrhea or fever or chills or cramps. Objective: General: This is a well-built male in no acute distress Vital signs : Temperature 97.5. Pulse 72. Respiratory rate 18. Blood pressure 139/88. HEENT: Atraumatic, normocephalic, Oral mucosa is moist Neck: Supple Cardiovascular: S1S2 heard, Rate and rhythm regular Respiratory: Clear to auscultation Gastrointestinal: Abdomen is soft Musculoskeletal : No tenderness, No edema Dermatologic : No skin rash Neurologic: Alert and awake and oriented X3, No focal neurologic deficits. Moving all the extremities . Psychiatric: Mood and affect normal Laboratory data: Potassium is 3.8, BUN is 24, creatinine is 1.6. Assessment and Plan: 1. Acute kidney injury. Creatinine is better with hydration, avoid nephrotoxins. 2. Edema, controlled. 3. Hypertension. 4. Renal function is better, okay to resume Lasix. Need to follow up with Nephrology as outpatient in 1-2 weeks.
== END 2018-02-18 12:40 | disposition home or self-care (01) | DRG 660 ==
LOC: SDC 06:11 → SURG A 18:41 → OBSVTOIN 18:41
PROVIDERS: ADMIT Urology; ATTEND Urology
PROC: 0T778DZ Dilation of Left Ureter with Intraluminal Device, Via Natural or Artificial Opening Endoscopic (ICD-10-PCS; principal; 2018-02-09)
PROC: 0TC78ZZ Extirpation of Matter from Left Ureter, Via Natural or Artificial Opening Endoscopic (ICD-10-PCS; 2018-02-09)
DX: R31.0 Gross hematuria (principal); D68.32 Hemorrhagic disorder due to extrinsic circulating anticoagulants; N20.1 Calculus of ureter; N13.2 Hydronephrosis with renal and ureteral calculous obstruction; N17.9 Acute kidney failure, unspecified; N13.30 Unspecified hydronephrosis; I10 Essential (primary) hypertension; Z79.01 Long term (current) use of anticoagulants; Z95.2 Presence of prosthetic heart valve; I87.8 Other specified disorders of veins; E87.6 Hypokalemia; Z87.891 Personal history of nicotine dependence; Z95.1 Presence of aortocoronary bypass graft; Z79.82 Long term (current) use of aspirin; Z99.3 Dependence on wheelchair; E78.5 Hyperlipidemia, unspecified
CPT/HCPCS: 36415; 36416; 76001; 76770; 80048; 82365; 82565; 85014; 85018; 85025; 85027; 85610; 85730; 88300; C1758; C1769; G8978-GP-CL; G8979-GP-CI; J0290; J0690; J1580; J1644; J1956; J2405; J2704; J3010; J7050; Q9961

== ENCOUNTER 2018-04-10 09:04 | Inpatient (IN) | payer MEDICARE, OTHER ==
[2018-04-10] MEDS ORDERED: Lidocaine Viscous Sol 2% 15 ml UD Cup ONE (09:34)
[2018-04-10 09:45] LABS: INR-International Normal Ratio 3.3; PTT 73.1 SEC (22.9-36.1); Prothrombin Time 33.2 SEC (12.0-14.7)
[2018-04-10 09:59] LABS: ALT (SGPT) 10 U/L (8-55); AST (SGOT) 20 U/L (5-34); Albumin 4.3 g/dL (3.4-4.8); Alkaline Phosphatase 128 U/L (40-150); Anion Gap 16 mmol/L (10-20); BUN (Urea Nitrogen) 15 mg/dL (8.4-25.7); Bilirubin, Total 1.3 mg/dL (0.2-1.2); Calc. Creatinine Clearance 0 mL/min (70-130); Calcium 9.5 mg/dL (7.8-10.44); Carbon Dioxide 23 mmol/L (23-31); Chloride 103 mmol/L (98-107); Estimated GFR-MDRD 54; Glucose 128 mg/dL (83-110); Lipase 17 U/L (8-78); Protein, Total 7.3 g/dL (5.8-8.1); Sodium 139 mmol/L (136-145)
[2018-04-10 10:04] LABS: Potassium 2.9 mmol/L (3.5-5.1)
--- NOTE | 2018-04-10 11:06 | CT ---
CT ABDOMEN AND PELVIS WITH IV CONTRAST: Date: 04/10/18 HISTORY: Abdominal pain, constipation. FINDINGS: Comparison made with exam of 12/08/17. There is evidence of old granulomatous disease in the visualized portions of the chest. No calcified gallstones are seen. Calcified granulomas noted in the spleen. The liver, pancreas, adrenal glands, a nd left kidney appear normal. There is a cysts in the right kidney. No free air, free fluid, or lymph adenopathy seen in the abdomen or pelvis. The small bowel loops are not abnormally dilated. There is focal narrowing of a portion of the sigmoi d colon and the right lower abdomen/pelvis with proximal dilatation of the sigmoid colon. There is ac companying mild swirling of the vessels in this region. There is fluid in the rectosigmoid. There are vascular calcifications without evidence of aneurysmal dilatation of the abdominal aorta. A small hiatal hernia is present. There are degenerative changes of the spine. 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 Discussed over the telephone with ER physician, Dr. Gena Bennett, at 1100 hours. CODE CR. POS: [facility]
[2018-04-10 11:29] LABS: Bilirubin Negative (Negative); Blood, Urine Trace (Negative); Clarity CLEAR (Clear); Glucose, Urine (Dipstick) Negative (Negative); Leukocyte Negative (Negative); Nitrite Negative (Negative); Protein, Urine (Dipstick) Negative (Neg-Trace); Specific Gravity, Urine 1.023 (1.002-1.036); Urobilinogen 0.2 mg/dL (0.2-1.0)
[2018-04-10 11:34] LABS: Bacteria/HPF None Seen HPF (None Seen); Hyaline Casts/LPF 4-6 HYALINE CAST LPF (0-3 Hyaline); Pathc Cast-AUWi Flag 0.72 (0-2.49); Squamous Epithelial 0-3 HPF (0-3); WBC/HPF 0-3 HPF (0-3)
[2018-04-10 11:45] LABS: #Eosinphils 0.1 thou/uL (0.0-0.7); #Lymphocytes 1.2 thou/uL (1.20-3.40); #Monocytes 0.7 thou/uL (0.11-0.59); #Neutrophils 4.4 thou/uL (1.40-6.50); %Basophils 0.6 % (0.0-1.0); %Eosinophils 2.2 % (0.0-10.0); %Lymphocytes 18.1 % (21.0-51.0); %Monocytes 10.2 % (0.0-10.0); %Neutrophils 68.9 % (42.0-75.0); Hemoglobin 14.9 g/dL (14.0-18.0); Mean Corpuscular HGB CONC 34.1 g/dL (32.0-36.0); Mean Corpuscular Hemoglobin 31.8 pg (27.0-31.0); Mean Corpuscular Volume 93.1 fL (78.0-98.0); Mean Platelet Volume 6.9 fL (7.4-10.4); Platelet Count 240 thou/uL (130-400); RBC Distribution Width 12.5 % (11.5-14.5); Red Blood Cell (RBC) Count 4.71 mill/uL (4.70-6.10); White Blood Cell (WBC) Count 6.4 thou/uL (4.8-10.8)
[2018-04-10] MEDS ORDERED: PROPOFOL 40 ML ONE (12:51)
[2018-04-10 15:09] VITALS: BMI 36.8
[2018-04-10] MEDS: Polyethylene Glycol 3350 17 GM Packet PO SCH ×2 (15:24→23:04)
[2018-04-10] MEDS: D5 1/2 NS w/20 mEq KCL 1,000 ML IV SCH ×2 (15:24→22:25)
[2018-04-10] MEDS ORDERED: ISOVUE-370 76%-LOCM 1 ML ONE (15:53)
[2018-04-10] MEDS ORDERED: PROPOFOL 200 MG/20 ML VIAL ONE (16:21)
[2018-04-10] MEDS ORDERED: Succinylcholine Chloride 20 MG/ML 10 ml SYRINGE FS ONE (16:21)
[2018-04-10] MEDS ORDERED: Lidocaine 1% PF 5 ML VIAL ONE (16:21)
[2018-04-10] MEDS ORDERED: PHENYLEPHRINE-NS 100 MCG/ML 10 ML SYRINGE ONE (16:21)
[2018-04-10] MEDS ORDERED: ePHEDrine/0.9% NaCl/PF SYRINGE 50 mg/10 ml ONE (16:21)
[2018-04-10 17:12] LABS: Hemoglobin 12.7 g/dL (14.0-18.0)
[2018-04-10] MEDS ORDERED: Potassium Chloride 40 MEQ in Sodium Chloride 0.9% 250 ML 250 ML IVPB SCH ×2 (18:00→22:30)
--- NOTE | 2018-04-10 18:18 | HP ---
CHIEF COMPLAINT: Nausea. HISTORY: Mr. Perez is an 87-year-old man, who presented to the emergency room with a 5-day history of being unable to pass gas or to urinate. He underwent a CT scan of the abdomen, which showed a sigmoid volvulus and a Alejo catheter was placed, which shows some slightly bloody urine. He did undergo a recent cystoscopy with stent placement for kidney stones and later stent removal and had problems with bleeding that was felt to be related to the stent. He is chronically anticoagulated on Coumadin because of mechanical heart valve. He denies any previous similar episodes of nausea and being unable to pass gas and denies any other recent changes in his bowel habits. PAST MEDICAL HISTORY: Coronary artery disease. He states that his acoustic engineer, Dr. Talon Clements, told me that he had a minor narrowing of one of his vessels, but it was not bad enough to intervene and was going to be treated medically. He also has a history of hyperlipidemia and hypertension. Venous stasis of both legs. PAST SURGICAL HISTORY: Mechanical heart valve placement and bypass, knee surgery, tonsils, and eye surgery. ALLERGIES: HE HAS NO KNOWN DRUG ALLERGIES. OUTPATIENT MEDICATIONS: Include Coumadin most significantly, he also takes Lasix, iron, simvastatin, eye drops, vitamins, aspirin, and potassium. FAMILY HISTORY: Noncontributory. SOCIAL HISTORY: He used to be a heavy drinker and smoker, but quit both many years ago. Does not use any drugs. He is disabled and uses a scooter to get around. PHYSICAL EXAMINATION: GENERAL: Reveals an alert, friendly, 87-year-old man, who is conversant and aware. He appears to be an accurate historian and has good recall of recent medical events. HEENT: Unremarkable. NECK: Supple without lymphadenopathy or thyroid nodules. HEART: Regular in its rate and rhythm with a mechanical click and a systolic murmur. LUNGS: Clear to auscultation bilaterally. ABDOMEN: Soft, nontender, and nondistended. Bowel sounds are present. He is slightly tympanitic. EXTREMITIES: Warm and well perfused with normal dorsalis pedis and popliteal pulses bilaterally. He has dark discoloration of both legs almost to the knee consistent with chronic venous stasis, but no ulceration. He has qykjzgbh-[id number]-dbaosa edema of both legs. NEUROLOGIC: No focal deficits. PSYCHIATRIC: Alert, oriented, and appropriate. LABORATORY DATA: White count is normal, hematocrit 43. INR today is 3.3. Potassium was low at 2.9, but other electrolytes were unremarkable. BUN and creatinine were 15 and 1.26, which are down from February, and total bilirubin was mildly elevated at 1.3, which is not too different from where it has been in the past. Other LFTs were normal. CT images are reviewed and I agree with the written report. The patient does have a sigmoid volvulus. ASSESSMENT AND PLAN: Sigmoid volvulus. The patient is being taken to the operating room today by Dr. Estrada for colonoscopic decompression. This will likely be successful. The patient does not have any signs of ischemia. We discussed his options. Given his advanced age, the pros and cons of observation versus surgery need to be weighed. Sigmoid volvulus does have a high risk of recurrence and for this reason, sigmoid colectomy is generally recommended; however, there are risks associated with colon surgery, which can be significant in elderly patients with medical comorbidities. In addition, he requires ongoing anticoagulation due to his mechanical heart valve and would need to be bridged with heparin if he decided to proceed with surgery. Sigmoid volvulus is rarely life-threatening, but it can cause bowel ischemia which would then require emergent bowel surgery and colostomy. Inherent risks of elective bowel surgery include, but are not limited to bleeding, infection, risks of anesthesia including heart attack and stroke, bleeding or blood clot formation, anastomotic leak requiring repair and diversion with an ostomy. I have spoken with Dr. Clements's partner, Dr. Dunn, he does not have the full details of the patient's recent cardiac workup, but states that an echocardiogram done a year ago showed preserved ejection fraction and he recommended repeating the echocardiogram and proceeding with surgery if this was still normal. We are going to try to get his more recent records from Dr. Clements's office on Tuesday when they open. The patient is undecided regarding proceeding with surgery versus observation since he has not had much urine output or oral intake for the past five days. I am going to watch him overnight. Regardless, I have written for a clear liquid diet for followup colonoscopy and repeat labs in the morning. His potassium is low, so we will replace this and I will check with him again tomorrow regarding his decision. If he decides to proceed with surgery, we will likely do a bowel prep tomorrow and a formal colonoscopy on Tuesday and then a sigmoid colectomy on . Job ID: [id number]
[2018-04-10] MEDS ORDERED: KETAMINE 100 MG/ML (5ML VIAL) ONE (19:01)
[2018-04-10] MEDS ORDERED: Phytonadione 10 MG/ML AMP SLOW IVP SCH (19:15)
[2018-04-10] MEDS ORDERED: ADMIXTURE FEE IV SCH ×2 (19:15)
[2018-04-10] MEDS ORDERED: HUMAN PROTHROMBIN COMPLX IV SCH ×2 (19:15)
[2018-04-10] MEDS ORDERED: ceFOXitin 1 GM VIAL ONE (19:31)
[2018-04-10] MEDS ORDERED: Sodium Chloride 0.9% 20 ML ONE (19:32)
--- NOTE | 2018-04-10 19:45 | PRG ---
DATE OF SERVICE: 04/10/2018 SUBJECTIVE: Mr. Perez underwent a flexible sigmoidoscopy, decompression of a sigmoid volvulus earlier this afternoon. He returned to the floor, several hours later had a bright red blood stool. The nurse called me and we got a stat H and H. His hemoglobin had dropped from 14.9 to 12.7. He subsequently has had another 2 more painless bloody bowel movements. He is comfortable in the bed. Blood pressure is 133/83 and pulse of 93. His abdomen is nontender. His rectal examination reveals clot and maroon blood, but no stool. OTHER SIGNIFICANT LABS: On admission, his INR was 3.3. ASSESSMENT: This is a gentleman present with a volvulus today, and elevated INR at 3.3 secondary to mechanical mitral valve, for which he is on Coumadin. At this time, sigmoidoscopy and detorsion of the sigmoid bowel. It was not severe, but he did have some subcu areas of submucosal hemorrhage. Now, he is having some bleeding. PLAN: Two units of FFP. Type and cross for 2 units of blood. Repeat sigmoidoscopy. Plan was discussed with the patient, the nurse, and Dr. Faria, his admitting surgeon. Job ID: [id number]
[2018-04-10 19:58] LABS: #Eosinphils 0.1 thou/uL (0.0-0.7); #Lymphocytes 0.6 thou/uL (1.20-3.40); #Monocytes 0.1 thou/uL (0.11-0.59); #Neutrophils 1.4 thou/uL (1.40-6.50); %Basophils 0.7 % (0.0-1.0); %Eosinophils 2.9 % (0.0-10.0); %Lymphocytes 28.1 % (21.0-51.0); %Monocytes 5.9 % (0.0-10.0); %Neutrophils 62.4 % (42.0-75.0); Hemoglobin 9.8 g/dL (14.0-18.0); Mean Corpuscular HGB CONC 34.8 g/dL (32.0-36.0); Mean Corpuscular Hemoglobin 32.2 pg (27.0-31.0); Mean Corpuscular Volume 92.6 fL (78.0-98.0); Mean Platelet Volume 6.4 fL (7.4-10.4); Platelet Count 146 thou/uL (130-400); RBC Distribution Width 12.2 % (11.5-14.5); Red Blood Cell (RBC) Count 3.02 mill/uL (4.70-6.10); White Blood Cell (WBC) Count 2.2 thou/uL (4.8-10.8)
[2018-04-10 20:05] LABS: INR-International Normal Ratio 1.4; Prothrombin Time 17.2 SEC (12.0-14.7)
[2018-04-10 20:19] LABS: Anion Gap 12 mmol/L (10-20); BUN (Urea Nitrogen) 12 mg/dL (8.4-25.7); Calc. Creatinine Clearance 92 mL/min (70-130); Calcium 7.3 mg/dL (7.8-10.44); Carbon Dioxide 22 mmol/L (23-31); Chloride 109 mmol/L (98-107); Estimated GFR-MDRD 79; Glucose 190 mg/dL (83-110); Potassium 2.9 mmol/L (3.5-5.1); Sodium 140 mmol/L (136-145)
[2018-04-10] MEDS ORDERED: Pantoprazole 40 MG VIAL IVP SCH (21:00)
[2018-04-10] MEDS ORDERED: Propofol 1,000 MG/100 ML VIAL IV ONE (21:22)
[2018-04-10 21:49] LABS: Magnesium 1.4 mg/dL (1.6-2.6); Phosphorus 2.5 mg/dL (2.3-4.7)
[2018-04-10] MEDS ORDERED: Propofol BOLUS 1,000 MG/100 ML VIAL IV PRN (21:56)
[2018-04-10] MEDS ORDERED: fentaNYL Citrate/PF 2,000 MCG in Sodium Chloride 0.9% 60 ML IV SCH (21:56)
[2018-04-10] MEDS ORDERED: DISCONTINUE PREVIOUS NARCOTIC PAIN MEDICATIONS AND BENZODIAZEPINES FS SCH (21:56)
[2018-04-10] MEDS ORDERED: Morphine 2 MG/ML SYRINGE SLOW IVP PRN (21:56)
[2018-04-10] MEDS ORDERED: Lorazepam 2 MG/ML VIAL SLOW IVP PRN (21:56)
[2018-04-10] MEDS ORDERED: Fentanyl BOLUS 250 ML IVPB PRN (21:56)
[2018-04-10] MEDS ORDERED: Propofol 1,000 MG/100 ML VIAL IV PRN (21:56)
--- NOTE | 2018-04-10 22:12 | RAD ---
SINGLE VIEW OF THE CHEST: Comparison: 10-06-16 History: Endotracheal tube placement. FINDINGS: Single view of the chest shows normal sized cardiomediastinal silhouette. Endotracheal tube is seen w ith its tip in good position between the deborah and the clavicles. The patient is status post sternot megan. A pacemaker is seen with its tip in the right ventricle. There is no evidence of consolidation, mass, or pleural effusion. An NG tube is seen in the stomach. IMPRESSION: Appropriate position of endotracheal tube and NG tube. POS: [facility]
[2018-04-10 22:30] LABS: Hemoglobin 10.7 g/dL (14.0-18.0)
[2018-04-10] MEDS: Pantoprazole 40 MG VIAL IVP SCH (22:40)
--- NOTE | 2018-04-10 22:43 | OP ---
DATE OF PROCEDURE: 04/10/2018 PREOPERATIVE DIAGNOSES: 1. Gastrointestinal bleeding after sigmoid volvulus reduction earlier today. 2. Anticoagulation for prosthetic heart valve, chronic. POSTPROCEDURE DIAGNOSES: Large colon wall hematoma with clot, probably 10 cm in size. RECOMMENDATIONS: I talked with Dr. Faria. The patient is receiving FFP as we speak to reverse his anticoagulation, something we did not do before his decompression secondary to the concern of him being therapeutic and him having prosthetic valve. At this time, we are going to reverse his anticoagulation. He will get transfusion and if he does not remain stable, may have to go to the OR for sigmoid resection tonight instead of elective sigmoid resection as was initially planned for the sigmoid volvulus. I have made attempts to call the patient's family, daughter, and grandson listed in his contact list left a message, the other was unanswered. If the patient has decompensation, we have to proceed without family notification. The patient is alert, awake, and understands process at hand. ANESTHESIA: TIVA. PROCEDURE IN DETAIL: After the patient was informed of the risks, benefits, possible complications of endoscopy and indication that is bleeding after recent procedure of detorsion of sigmoid volvulus, concern for bleeding sites related to this or the submucosal hemorrhage were identified at that study, his chronic anticoagulation and the rapidness of acute bleeding and drop in his hemoglobin, he was brought to the endoscopy suite with blood and FFP on the way and introducing the scope in the rectum at about 25 cm. There was a large intramural hematoma roughly 10 cm in size. In the tip of this, there was some clot. I suspect he has had intramural hematoma related to detorsion of his volvulus and with his anticoagulation, this was expanding. He is remaining stable and he is being resuscitated and his anticoagulation has been reversed. Dr. Faria is on the way to see him presently. There was no active bleeding at the time of sigmoidoscopy; however, I believe that with his anticoagulation and the submucosal hemorrhage that was seen at the time of his volvulus detorsion that was present from the volvulus that he is at risk for ongoing intramural bleeding or bleeding into the mesenteric leaf and we will likely need to go to the OR this evening. Job ID: [id number]
[2018-04-10 22:48] LABS: Troponin I 0.035 ng/mL (< 0.028)
[2018-04-11] MEDS: cefOXitin Sodium/Dextrose,Iso 1 GM in Premix Bag 50 BAG IVPB SCH ×3 (04:34→20:19)
[2018-04-11 04:36] LABS: #Lymphocytes 0.3 thou/uL (1.20-3.40); #Monocytes 0.3 thou/uL (0.11-0.59); #Neutrophils 4.5 thou/uL (1.40-6.50); %Basophils 0.6 % (0.0-1.0); %Eosinophils 0.2 % (0.0-10.0); %Lymphocytes 6.3 % (21.0-51.0); %Monocytes 5.3 % (0.0-10.0); %Neutrophils 87.6 % (42.0-75.0); Hemoglobin 10.4 g/dL (14.0-18.0); Mean Corpuscular HGB CONC 34.8 g/dL (32.0-36.0); Mean Corpuscular Volume 91.8 fL (78.0-98.0); Mean Platelet Volume 6.4 fL (7.4-10.4); Platelet Count 174 thou/uL (130-400); RBC Distribution Width 12.3 % (11.5-14.5); Red Blood Cell (RBC) Count 3.26 mill/uL (4.70-6.10); White Blood Cell (WBC) Count 5.1 thou/uL (4.8-10.8)
[2018-04-11 04:43] LABS: INR-International Normal Ratio 1.2; PTT 31.8 SEC (22.9-36.1)
[2018-04-11 05:00] LABS: Anion Gap 10 mmol/L (10-20); BUN (Urea Nitrogen) 11 mg/dL (8.4-25.7); Calc. Creatinine Clearance 98 mL/min (70-130); Calcium 7.5 mg/dL (7.8-10.44); Carbon Dioxide 25 mmol/L (23-31); Chloride 107 mmol/L (98-107); Estimated GFR-MDRD 85; Glucose 181 mg/dL (83-110); Potassium 3.3 mmol/L (3.5-5.1); Sodium 139 mmol/L (136-145)
[2018-04-11] MEDS: D5 1/2 NS w/20 mEq KCL 1,000 ML IV SCH ×2 (06:35→15:11)
[2018-04-11] MEDS ORDERED: Magnesium 2 GM/50 ML 2 GM in Premix Bag 1 BAG IVPB SCH (08:30)
[2018-04-11] MEDS: Pantoprazole 40 MG VIAL IVP SCH ×2 (08:32→20:20)
[2018-04-11] MEDS: Enoxaparin Sodium 40 MG/0.4 ML SYRINGE SC SCH ×2 (08:32→20:20)
[2018-04-11] MEDS: Potassium Chloride 20 MEQ in Premix Bag 1 BAG IVPB SCH ×2 (08:32→11:17)
[2018-04-11 08:45] LABS: Troponin I 0.022 ng/mL (< 0.028)
[2018-04-11 10:01] LABS: Hemoglobin 10.3 g/dL (14.0-18.0)
[2018-04-11] MEDS: Acetaminophen 1,000 MG in Premix Bag 1 BAG IVPB SCH ×2 (11:15→16:09)
[2018-04-11] MEDS ORDERED: Ondansetron PF 4 MG/2 ML Vial IVP PRN (12:53)
[2018-04-11] MEDS ORDERED: fentaNYL Citrate/PF 2,000 MCG in Sodium Chloride 0.9% 60 ML IV PRN (12:53)
[2018-04-11] MEDS ORDERED: Promethazine HCl 25 MG/ML VIAL IM PRN (12:53)
[2018-04-11] MEDS ORDERED: Naloxone HCl 0.4 mg/ml Vial IV PRN (12:53)
--- NOTE | 2018-04-11 13:46 | PRG ---
DATE OF SERVICE: 04/11/2018 I saw the patient on morning rounds. At which point, he was doing well. His urine output had been 20 to 65 mL an hour, but had cleared with resolution of the gross hematuria. His hemoglobin and hematocrit were basically stable over nights, going from 10 to 10.4 and 31.5 to 29.9. INR was 1.2 and PTT was 31.8. Potassium was low at 3.3, but this was replaced as was magnesium, which was 1.4. His OR dressings were clean and his colostomy was healthy in appearance with no output yet. OG drainage was minimal. ASSESSMENT: Status post sigmoid colectomy for volvulus and intramural hematoma following detorsion. Doing well overall. I started him on prophylactic dose Lovenox today and we will increase this to therapeutic tomorrow and likely restart his Coumadin. I spoke to Dr. Dutta about him, who planned to extubate him today. Once he is extubated, I will get him a EVS MANAGER for pain management and try to get him up and moving with physical therapy. Job ID: [id number]
--- NOTE | 2018-04-11 16:25 | CON ---
DATE OF CONSULTATION: REASON FOR CONSULT: Sigmoid volvulus. HISTORY OF PRESENT ILLNESS: Mr. Perez is an 87-year-old, who was recently in this hospital with kidney stones requiring urologic intervention to remove that. He returned to the emergency room today stating that for 5 days he did not have a bowel movement or passed gas and has had worsening epigastric pain. He was evaluated by the emergency room physician and found to be stable, but had distended tympanic abdomen with increased bowel sounds. CAT scan of the abdomen and pelvis were performed, which showed what appeared to be a sigmoid volvulus by imaging and some dilation of the colon above this. The patient states he tried to take 5 laxatives yesterday, but nothing happened. He has never had a problem like this in the past. He denies having sigmoidoscopy or colonoscopy in the past, but did have a hemoccults for screening from the [place]. Presently, he is without extreme discomfort. General Surgery was called about this, but they deferred for endoscopic decompression. REVIEW OF SYSTEMS: Negative for dysphagia, odynophagia, or weight loss. No hematochezia or hematemesis. He has never had problems like this before. He denies any abdominal pain presently. He has had no shortness of breath at rest, chest pain, palpitations, or chest tightness. He does have some dyspnea on exertion. PAST MEDICAL HISTORY: Notable for left eye prosthesis, macular degeneration right eye, coronary artery disease, mechanical mitral valve, 3-vessel bypass in the past, venostasis dermatitis, sleep apnea, hypertension, and arrhythmias with previous defibrillator placements, never gone off. PAST SURGICAL HISTORY: Prosthetic valve placement, right knee surgery, tonsillectomy, adenoidectomy, and 3-vessel coronary artery disease, bypass graft. FAMILY HISTORY: Prior MA in parents. No family history of colon cancer. SOCIAL HISTORY: No smoking. No alcohol. No drug use. . Lives at home. His daughter brought him here . ALLERGIES: NONE KNOWN. LABORATORY DATA: White count 6.4, hemoglobin 14.9, and platelet count 240. INR 3.3. Sodium 139, potassium 2.9, BUN and creatinine 15 and 1.26, glucose 128, bilirubin 1.3, AST and ALT are 20 and 10, and lipase is 17. CT scan of the abdomen and pelvis reviewed with Surgery and Radiology. He seems to have a sigmoid volvulus with bird beaking and decompressed colon below that and some distention of the colon above. ASSESSMENT: Sigmoid volvulus with no bowel movement or passing gas for 5 days. RECOMMENDATIONS: Sigmoid decompression. Risks, benefits, possible complications including perforation, aspiration were discussed with the patient. There is some risk of bleeding. We do not plan on doing biopsies or polypectomies proceed without reversing his anticoagulation and we will do that today. The patient understands these risks and wishes to proceed. Job ID: [id number]
--- NOTE | 2018-04-11 16:38 | PRG ---
DATE OF SERVICE: 04/11/2018 SUBJECTIVE: The patient has had a successful sigmoid colectomy last night with diverting ileostomy, and presently remains on Cytoxan, Tylenol, Lovenox, p.r.n. fentanyl, Ativan, Zofran, and Protonix, is on IV fluid at 120 an hour. OBJECTIVE: VITAL SIGNS: Temperature afebrile, pulse 87, blood pressure 108/45, then 94/54. LUNGS: Clear. ABDOMEN: Soft, nontender. Ostomy looks pink and moist. There is no rebound or guarding. LABORATORY DATA: White count 5.1, hemoglobin 10.4, platelet count 174. ASSESSMENT: 1. Volvulus, status post endoscopic decompression yesterday, complicated by development of intramural hematoma, requiring urgent surgery last night. His anticoagulation had to be reversed at that time and his INR is 3.36. He had prophylactic antibiotics, started on K, and activated thromboplastin factor. He did receive 2 units of FFP, 3 units of blood, and 1 unit of platelets. 2. History of mitral valve replacement. RECOMMENDATIONS: CIC course. The reason for him to have a completion colonoscopy before the anastomosis in 3 months and continue close observation in the ICU, Critical Care and surgery. No signs of bleeding at this point in time. Job ID: [id number]
--- NOTE | 2018-04-11 17:10 | PRG ---
DATE OF SERVICE: 04/11/2018 Mr. Perez's course has been reviewed. CANCELED DICTATION Critical care time is 35 minutes. Job ID: [id number] MTDD
--- NOTE | 2018-04-11 22:17 | OP ---
DATE OF PROCEDURE: 04/10/2018 PROCEDURE PERFORMED: Colonoscopy with colonic decompression of sigmoid volvulus. PREPROCEDURE DIAGNOSIS: Sigmoid volvulus by CAT scan. POSTPROCEDURE DIAGNOSIS: Sigmoid volvulus with no signs of ischemia. There is some submucosal hemorrhage in the area of the sigmoid colon just in the area of the volvulus. This was not a tight volvulus nor massively distended volvulus. It was decompressed. Rectal tube was noted to be left in place above the volvulus as the guide catheter repetitively would not come out of the tube leading us to go ahead and remove the whole system. PLAN: 1. Postop films. 2. Consider surgical care. 3. MiraLAX 3 times daily. ANESTHESIA: TIVA. PROCEDURE IN DETAIL: The patient was informed of the risks, benefits, and possible complications of endoscopy including perforation, reaction to medication, and aspiration. Informed consent was obtained. The patient was brought to the endoscopy suite, where he fashion. Once he was comfortable, rectal exam was performed. There was air in the rectal vault The rectum was irrigated away with some old residual stool and water. about 25 cm, where there was a twisting appearance of the colon. The scope was able to be gently passed beyond this. There was not any tight angulation or tightness of the area at all. We went into an area above this, where there was a significant amount of air and gas watery stool. This was suctioned away. We cleaned up the mucosa. There was some submucosal hemorrhage in the area, where the volvulus was, but there were no signs of necrosis, gangrene, or ulceration of the mucosa. The scope was advanced further up the transverse colon, and colon was completely desufflated. A wire was placed through the scope, and a rectal tube was advanced over the wire up into the proximal left colon, transverse colon. removed the guide catheter from the would not separate and therefore, we removed the whole product. I went ahead and re-evaluated the colon, and there seemed to be good decompression of the proximal colon. Volvulus decompressed. The patient was brought to recovery room in stable condition. Job ID: [id number]
--- NOTE | 2018-04-11 22:31 | OP ---
DATE OF PROCEDURE: 04/11/2018 PROCEDURES PERFORMED: Sigmoid colectomy and colostomy. HISTORY: Mr. Perez is an 87-year-old man, who presented to the emergency room with a 5-day history of inability to pass gas or tolerate p.o. He was found to have a sigmoid volvulus and underwent colonoscopic decompression. Postoperatively, he began to pass bloody stools and was taken back down to the endoscopy suite and was found to have a massive intramural hematoma of the sigmoid colon. His anticoagulation was reversed, and he was resuscitated with blood products and taken emergently to the operating room for sigmoid colectomy and colostomy. DESCRIPTION OF PROCEDURE: After verbal consent was obtained from the patient and appropriate preoperative antibiotics were administered, the patient was taken to the operating room, where he was placed in supine position and general endotracheal anesthesia was administered. He was prepped and draped in standard sterile fashion, and a midline incision was made. The abdominal cavity was entered, and the massively dilated hemorrhagic sigmoid colon identified and brought up into the wound. The area with the hematoma was bleeding externally as well, but not actively. There was a small to moderate amount of clot in the abdominal cavity. The mesentery was very elongated, and the entire involved area of colon was able to be externalized. The abnormal dilated and hemorrhagic segment of sigmoid colon were divided proximally and distally with a LUPE stapler, and the mesentery was divided under direct vision using the LigaSure device. The specimen was passed from the table, and hemostasis at the staple line and mesenteric division was verified. The abdomen was then examined. The small bowel was run and no abnormalities seen or felt. The remainder of the colon was grossly normal to palpation, although, unprepped and with a large amount of pericolonic fat making palpation difficult. The OG tube was in good position in the stomach, which was decompressed. The liver was smooth. The proximal colon was easily lax enough to reach up to the abdominal wall without mobilization of the white line of Toldt. The skin was incised over the rectus sheath in the left lower quadrant, and the anterior sheath was divided in cruciate manner, and the underlying muscles split, and posterior sheath was also incised in a cruciate manner and the tract was dilated to allow passage of the colon without tension. The colon was brought up through the defect and secured to the posterior sheath with 3-0 silk sutures. The small bowel was returned to its normal anatomic position, and the omentum drawn down over the small intestine. Seprafilm was placed anterior to this, and the fascia was closed under direct vision with a running looped PDS suture with excellent technical result. The incision was irrigated, and subcutaneous tissues were reapproximated at intervals with 3-0 Monocryl suture. The skin was then closed with skin ajit, and a sterile dressing was placed. Attention was then turned to maturation of the colostomy. The colon was secured to the anterior rectus sheath with 3-0 silk sutures circumferentially. The staple line was resected, and everted colostomy created by securing the dermis to a Lembert suture through the colon wall a few centimeters proximal to the end and then the full-thickness of the colon at 4 quadrants and then securing the full thickness of the colon to the dermis in between the sutures. The colostomy was palpated and confirmed to be patent through the level of the fascia. Colostomy appliance was placed, and the patient was taken to CCU in stable condition. ESTIMATED BLOOD LOSS: Minimal. COMPLICATIONS: There were no complications. SPECIMEN: Sigmoid colon. Job ID: [id number]
--- NOTE | 2018-04-11 23:01 | CON ---
DATE OF CONSULTATION: 04/11/2018 HISTORY OF PRESENT ILLNESS: Mr. Chris Mckeon is a gentleman who was admitted with a sigmoid volvulus. He underwent endoscopy and then developed a significant rectal bleed. He was found to have a very large intramural hematoma and subsequently went to the OR last night. He would awake and he follow commands. When I saw him, he was in no distress. PAST MEDICAL HISTORY: Remarkable for; 1. Ureteral stent placement for kidney stones in the past with subsequent removal. He had bleeding complications. 2. Chronic anticoagulation for mechanical heart valve. 3. History of coronary artery disease, minimal. 4. History of lipid disorder. 5. Hypertension. 6. Chronic venous stasis. PAST SURGICAL HISTORY: History of knee surgery, tonsil surgery, and eye surgery in the past. MEDICATIONS: Prior to admission, he was on warfarin, Lasix, simvastatin, vitamins, aspirin, and potassium. ALLERGIES: HE HAS NO REPORTED DRUG ALLERGIES. SOCIAL HISTORY: He is nonsmoker, nondrinker. He is former heavy smoker. Former heavy drinker. FAMILY HISTORY: Negative for lung disease in early age. REVIEW OF SYSTEMS: Not obtainable. PHYSICAL EXAMINATION: GENERAL: His pleasant, cooperative gentleman in no distress. Younger than his age. VITAL SIGNS: Afebrile. Heart rate is in 70s, respiratory rate is in the teens, minute volume was 8 L per minute, oximetry is 95% to 96%, and blood pressure 124 /41 this afternoon after he is extubated. He passed a leak test. LUNGS: Clear. HEART: Regular rhythm. S1 and S2 normal. ABDOMEN: Soft, slightly distended, minimally tender. EXTREMITIES: Without clubbing, cyanosis, or edema. LABORATORY DATA: White count 5.1, hemoglobin 10.4, and platelets 174. INR is 1.2 this morning. Electrolytes; sodium 139, potassium 3.3, chloride 107, bicarb 25 , BUN 11, and creatinine 0.86. IMPRESSION: Status post laparotomy for sigmoid volvulus with an intramural hemorrhage. I felt he is a candidate for extubation. This has been done successfully. He has had no post extubation respiratory distress. Critical care time 30 minutes. Job ID: [id number] MTDD
[2018-04-12] MEDS: Acetaminophen 1,000 MG in Premix Bag 1 BAG IVPB SCH ×3 (00:20→14:20)
[2018-04-12] MEDS: D5 1/2 NS w/20 mEq KCL 1,000 ML IV SCH ×3 (00:21→23:41)
[2018-04-12] MEDS ORDERED: SYSTANE GEL EYE DROP 10 ML 10 GM BOT EA EYE PRN (08:16)
[2018-04-12] MEDS ORDERED: Enoxaparin Sodium 40 MG/0.4 ML SYRINGE SC SCH (08:52)
[2018-04-12] MEDS: Pantoprazole 40 MG VIAL IVP SCH ×2 (09:00→21:15)
[2018-04-12] MEDS ORDERED: Warfarin Sodium 5 MG TAB PO SCH ×2 (09:00)
[2018-04-12] MEDS: Enoxaparin Sodium 100 MG/ML SYRINGE SC SCH ×2 (09:05→21:15)
--- NOTE | 2018-04-12 09:41 | PRG ---
DATE OF SERVICE: 04/12/2018 SERVICE: Pulmonary Medicine. INTERVAL HISTORY: The patient is doing okay from respiratory standpoint. He has been weaned down to 1 L nasal cannula. He does wear oxygen at home from time to time. He denies any current fevers, chills, nausea, or vomiting. His abdominal discomfort is under good control. He denies having any chest pain. He is passing some gas. PHYSICAL EXAMINATION: VITAL SIGNS: Afebrile, pulse 76, blood pressure 113/57, respirations 20, and saturation 94% on 1 L nasal cannula. GENERAL: The patient is awake and alert, in no apparent distress. LUNGS: Decent air entry. Dependent crackles are minimal. No prolonged expiratory phase or wheezing is appreciated. HEART: Normal rate, regular. ABDOMEN: Soft. Distended. Bowel sounds are hypoactive. GENITOURINARY: Alejo catheter in place. NEUROLOGIC: Grossly nonfocal. LABORATORY DATA: WBC 5.1, hemoglobin 10.4, and platelets 174,000. INR 1.2. Basic metabolic profile is otherwise unremarkable. Potassium 3.3. Troponin is downtrending. Magnesium was previously 1.4. Urine culture is unremarkable. ASSESSMENT: 1. Sigmoid volvulus, status post laparotomy, postop day 2. 2. Acute on chronic hypoxic respiratory failure, returned today to baseline. DISCUSSION AND PLAN: Once the patient has an abdominal binder on, we will start mobilizing him. Physical Therapy will be invited to follow with this patient. Pulmonary will continue to follow for the time being. Repeat laboratories will be done tomorrow morning. I will drop his IV fluid rate to 75 an hour as he is a little volume overloaded. Job ID: [id number]
--- NOTE | 2018-04-12 10:28 | PDOC.GSPN ---
Surgery Progress Note: Subj - Subjective Narrative: Patient is doing well. He has minimal pain which is controlled by the [employer]. He has had some mild nausea but no emesis. He is breathing well. Colostomy is healthy in appearance. No gas in the bag. Midline incision is dressed and clean. Abdomen is soft and minimally tender to palpation. H&H is stable and electrolytes are unremarkable. Assessment/plan: Status post emergency sigmoid colectomy and colostomy for obstructing bleeding intramural hematoma following colonoscopic detorsion. He is doing well from his operation. He extubated yesterday without any difficulty. We're awaiting return of bowel function, and I have left him on ice chips until his nausea resolves. I will restart anticoagulation today with therapeutic Lovenox and his home dose of Coumadin. If it is okay with pulmonary plan to transfer him to the surgical floor. PT has been consulted for mobilization, although the patient was minimally mobile preoperatively. Surgery Progress Note: Obj - Vital signs Vital signs: Vital Signs - Most Recent Temp Pulse Resp BP Pulse Ox 98.4 F 87 20 112/41 L 96 04/12/18 08:00 04/11/18 11:12 04/11/18 11:12 04/11/18 06:45 04/12/18 07:18 Surgery Progress Note: Results - Labs Result Diagrams: 04/11/18 09:51 04/11/18 04:30
[2018-04-12 12:10] LABS: Actual Bicarbonate (HCO3a) 21.3 mEq/L (22-28); Analyzer IN Cardio OR; Base Excess (BEa) -3.2 mEq/L (-2.0 to +3.0); CO2 Tension 36.9 mmHg (35.0-45.0); Calcium, Ionized 0.94 mmol/L (1.12-1.30); O2 Tension (PaO2) 440.9 mmHg (> 60.0); Potassium - ABG Lab 2.69 mmol/L (3.70-5.30); pH, Arterial 7.38 (7.35-7.45)
[2018-04-12 12:11] LABS: Actual Bicarbonate (HCO3a) 18.7 mEq/L (22-28); Analyzer IN Cardio OR; Base Excess (BEa) -5.1 mEq/L (-2.0 to +3.0); CO2 Tension 30.3 mmHg (35.0-45.0); Calcium, Ionized 0.99 mmol/L (1.12-1.30); Carboxyhemoglobin (COHb) 0.5 gm% (0.0-3.0); Hemoglobin (Hb) 9.6 g/dL (14.0-18.0); O2 Tension (PaO2) 381.7 mmHg (> 60.0); Potassium - ABG Lab 2.88 mmol/L (3.70-5.30); Puncture Site ALINE; pH, Arterial 7.41 (7.35-7.45)
[2018-04-12 12:12] LABS: Puncture Site ALINE
--- NOTE | 2018-04-12 14:30 | PRG ---
DATE OF SERVICE: 04/12/2018 SUBJECTIVE: Mr. Perez is postop day #2 after sigmoid colectomy and descending colostomy secondary to volvulus with detorsion and complications of bleeding. He is doing well. He is without complaints. He has had no bowel movements. He has not passed gas yet. OBJECTIVE: VITAL SIGNS: Temperature is 98, pulse 72, and blood pressure is 105/59. LUNGS: Clear. ABDOMEN: Slightly protuberant. HEART: Regular rate and rhythm. ABDOMEN: Bowel sounds are quiescent. Ostomy site looks good, pink and moist, but there is no air in the bag. ASSESSMENT: Status post sigmoid colectomy for volvulus and bleeding. LABORATORY DATA: White count 5.1, hemoglobin 10.4, and platelet count 174. Electrolytes are okay except for potassium 3.3, which has been replaced. INR is 1.2. He has been restarted on his anticoagulation. RECOMMENDATIONS: Ambulate, postop care otherwise per General Surgery. We will follow from a distance at this time. If I can be of any further assistance in the patient's care, please do not hesitate to contact me. Job ID: [id number]
[2018-04-12] MEDS ORDERED: WARFARIN PO PRN (17:35)
[2018-04-12] MEDS: Warfarin Sodium 5 MG TAB PO SCH (18:01)
--- NOTE | 2018-04-12 19:32 | PDOC.PN ---
- Subjective Encounter Start Date: 04/12/18 Encounter Start Time: 19:30 Subjective: IM team consulted for medical management.chart reviewed.PT seen & examnied -: PCP [facility].cardiology Dr. Clements -: POD #2 from Sigmoid colectomy & colostomy for imtramural hematoma Admitted for sigmoid volvulus which was treated w sigmoid colonoscopy H/O CAD,mechanical heart valve on chr anticoagulation . Walks w Walker at baseline - Objective MAR Reviewed: Yes Vital Signs & Weight: Vital Signs (12 hours) Temp Pulse Resp BP Pulse Ox 04/12/18 15:14 99.0 F 76 16 113/72 92 L 04/12/18 13:05 95 04/12/18 08:00 98.4 F Weight Weight 242 lb Most Recent Monitor Data Heart Rate from ECG 73 NIBP 105/58 NIBP BP-Mean 73 Respiration from ECG 17 SpO2 95 I&O: 04/11/18 04/12/18 04/13/18 06:59 06:59 06:59 Intake Total 2325.4 3119.0 792 Output Total 1000 990 550 Balance 1325.4 2129.0 242 Result Diagrams: 04/11/18 09:51 04/11/18 04:30 Additional Labs: Laboratory Tests 10/08/16 04/10/18 04/10/18 04:25 09:25 09:25 Hgb 14.9 INR 3.3 Troponin I 0.013 04/10/18 04/10/18 04/10/18 17:05 19:40 19:40 Hgb 12.7 L 9.8 L INR 1.4 Troponin I 04/10/18 04/10/18 04/11/18 22:15 22:15 04:30 Hgb 10.7 L INR 1.2 Troponin I 0.035 H 04/11/18 04/11/18 04/11/18 04:30 04:30 09:51 Hgb 10.4 L 10.3 L INR Troponin I 0.022 Phys Exam - Physical Examination Constitutional: NAD watching TV.looks tired HEENT: PERRLA, moist MMs, sclera anicteric, oral pharynx no lesions Neck: no nodes, no JVD, supple, full ROM Respiratory: no wheezing, no rales, no rhonchi, clear to auscultation bilateral Cardiovascular: RRR, no significant murmur Gastrointestinal: soft, non-tender, positive bowel sounds mild distension.Brown liquid in ostomy bag.Abd binder on Musculoskeletal: no edema, pulses present Neurological: non-focal, normal sensation, moves all 4 limbs Psychiatric: normal affect, A&O x 3 Skin: no rash Dx/Plan (1) Colonic hematoma Code(s): S36.529A - CONTUSION OF UNSPECIFIED PART OF COLON, INITIAL ENCOUNTER Status: Acute Comment: s/p Sigmoid colectomy & colostomy and Coumadin reversal . (2) Acute blood loss anemia Code(s): D62 - ACUTE POSTHEMORRHAGIC ANEMIA Status: Acute Comment: due to # 1.H/H stable post transfusion (3) Sigmoid volvulus Status: Acute Comment: s/p Correction by colonoscopy (4) Chronic anticoagulation Code(s): Z79.01 - VALIDATION TECHNICIAN (CURRENT) USE OF ANTICOAGULANTS Status: Chronic (5) GI bleed Code(s): K92.2 - GASTROINTESTINAL HEMORRHAGE, UNSPECIFIED Status: Acute Comment: due to #1.Stable. no blood in Ostomy bag (6) HLD (hyperlipidemia) Code(s): E78.5 - HYPERLIPIDEMIA, UNSPECIFIED Status: Chronic Comment: continue statin. (7) HTN (hypertension) Code(s): I10 - ESSENTIAL (PRIMARY) HYPERTENSION Status: Chronic Comment: controlled. (8) Mechanical heart valve present Code(s): Z95.2 - PRESENCE OF PROSTHETIC HEART VALVE Status: Chronic (9) MICHELLE (obstructive sleep apnea) Code(s): G47.33 - OBSTRUCTIVE SLEEP APNEA (ADULT) (PEDIATRIC) Status: Chronic (10) Venous stasis dermatitis of both lower extremities Code(s): I87.2 - VENOUS INSUFFICIENCY (CHRONIC) (PERIPHERAL) Status: Chronic - Plan PT/OT, out of bed/ambulate, DVT proph w/SCDs Daily PT/INR and H/H monitoring ordered.Pharmacy to manage coumadin. -: Pain control and rehab per primary team -: NPO> restart home meds when cleared to take -: Gentle IVF and monitor Volume status closely -: Restart lasix if stable. EF unknown. * .Daily labs. monitor lytes * IM team will follow Review of Systems - Review of Systems Constitutional: weakness, malaise. negative: fever, chills, sweats, other Eyes: negative: Pain, Vision Change, Conjunctivae Inflammation, Eyelid Inflammation, Redness, Other ENT: negative: Ear Pain, Ear Discharge, Nose Pain, Nose Discharge, Nose Congestion, Mouth Pain, Mouth Swelling, Throat Pain, Throat Swelling, Other Respiratory: negative: Cough, Dry, Shortness of Breath, Hemoptysis, SOB with Excertion, Pleuritic Pain, Sputum, Wheezing Cardiovascular: negative: chest pain, palpitations, orthopnea, paroxysmal nocturnal dyspnea, edema, light headedness, other Gastrointestinal: negative: Nausea, Vomiting, Abdominal Pain, Diarrhea, Constipation, Melena, Hematochezia, Other Genitourinary: negative: Dysuria, Frequency, Incontinence, Hematuria, Retention , Other Neurological: negative: Weakness, Numbness, Incoordination, Change in Speech, Confusion, Seizures, Other - Medications/Allergies Allergies/Adverse Reactions: Allergies Allergy/AdvReac Type Severity Reaction Status Date / Time No Known Drug Allergies Allergy Verified 04/10/18 15:06 Medications: Current Medications Enoxaparin Sodium (Lovenox) 100 mg SC 0900,2100 [facility] Last Admin: 04/12/18 09:05 Dose: 100 mg Hypromellose (Systane Gel) 0 gm EA EYE Q4H PRN PRN Reason: Dry Eyes Last Admin: 04/12/18 09:33 Dose: 1 drop Potassium Chloride/Dextrose/Sod Cl (D5 1/2 Ns W/20 Meq Kcl) 1,000 mls @ 75 mls/ hr IV .[id number] [facility] Last Admin: 04/12/18 09:00 Dose: 1,000 mls Miscellaneous Medication (Pharmacy To Dose) 1 each PO PRN PRN PRN Reason: Pharmacy to dose Naloxone HCl (Narcan) 0.2 mg IV Q5MIN PRN PRN Reason: RR <8 or pt obtun/unarousable Ondansetron HCl (Zofran) 4 mg IVP Q6H PRN PRN Reason: Nausea/Vomiting Pantoprazole Sodium (Protonix) 40 mg IVP BID [facility] Last Admin: 04/12/18 09:00 Dose: 40 mg Promethazine HCl (Phenergan) 12.5 mg IM Q4H PRN PRN Reason: Nausea/Vomiting Sodium Chloride (Flush - Normal Saline) 10 ml IVF PRN PRN PRN Reason: Saline Flush Last Admin: 04/12/18 09:00 Dose: 10 ml Sodium Chloride (Flush - Normal Saline) 10 ml IVF PRN PRN PRN Reason: Saline Flush Warfarin Sodium (Coumadin) 5 mg PO SuMoWeThFr@1700 LISSY Last Admin: 04/12/18 18:01 Dose: 5 mg Warfarin Sodium (Coumadin) 2.5 mg PO TuSa@1700 LISSY
[2018-04-12] MEDS ORDERED: Naloxone HCl 0.4 mg/ml Vial IV PRN (23:03)
[2018-04-12] MEDS ORDERED: Promethazine HCl 25 MG/ML VIAL IM PRN (23:03)
[2018-04-12] MEDS ORDERED: Ondansetron PF 4 MG/2 ML Vial IVP PRN (23:03)
[2018-04-12] MEDS: fentaNYL Citrate/PF 2,000 MCG in Sodium Chloride 0.9% 60 ML IV PRN (23:38)
[2018-04-13 07:11] LABS: Hemoglobin 9.4 g/dL (14.0-18.0)
[2018-04-13 07:17] LABS: INR-International Normal Ratio 1.1; Prothrombin Time 14.1 SEC (12.0-14.7)
[2018-04-13 07:32] LABS: Anion Gap 10 mmol/L (10-20); BUN (Urea Nitrogen) 6 mg/dL (8.4-25.7); Calc. Creatinine Clearance 99 mL/min (70-130); Calcium 8.1 mg/dL (7.8-10.44); Carbon Dioxide 26 mmol/L (23-31); Chloride 107 mmol/L (98-107); Estimated GFR-MDRD 86; Glucose 102 mg/dL (83-110); Magnesium 1.5 mg/dL (1.6-2.6); Potassium 3.7 mmol/L (3.5-5.1); Sodium 139 mmol/L (136-145)
[2018-04-13] MEDS: Pantoprazole 40 MG VIAL IVP SCH ×2 (08:50→20:36)
[2018-04-13] MEDS: Enoxaparin Sodium 100 MG/ML SYRINGE SC SCH ×2 (08:50→20:36)
[2018-04-13] MEDS: D5 1/2 NS w/20 mEq KCL 1,000 ML IV SCH (11:16)
[2018-04-13] MEDS ORDERED: Polyvinyl Alcohol 1.4%/Povidone 0.6% Opth Drops EA EYE PRN (11:41)
--- NOTE | 2018-04-13 11:41 | PDOC.GSPN ---
Surgery Progress Note: Subj - Subjective Narrative: Patient is feeling all right. He has some abdominal pain when he coughs. Physical therapy has not been by yet. He denies nausea or shortness of breath. He had some low-grade fevers last night. Other vital signs are okay. He is still on 2 L oxygen. He is only pulling about 750 on senna spirometry and was coached on use. His incision is clean dry and intact. No erythema or drainage. His colostomy is healthy although edematous. No output yet. It is patent through the level of the fascia. H&H has gone down very slightly. Other labs are okay. Assessment/plan: Patient is doing well from a surgical standpoint. We are still awaiting return of bowel function. He is not having any nauseous I will start him on some sips of clears today. He is minimally ambulatory at baseline but physical therapy has been consulted to work with him. We will try to get him up to a chair work on his pulmonary toilet. I believe that his low-grade fevers are respiratory in origin. He is on therapeutic Lovenox and Coumadin has been restarted. He'll restart some of his other home medications if he tolerates clears. Surgery Progress Note: Obj - Vital signs Vital signs: Vital Signs - Most Recent Temp Pulse Resp BP Pulse Ox 99.9 F H 77 12 149/94 H 94 L 04/13/18 07:55 04/13/18 10:30 04/13/18 07:55 04/13/18 10:30 04/13/18 07:55 Surgery Progress Note: Results - Labs Result Diagrams: 04/13/18 06:51 04/13/18 06:51 Lab results: Laboratory Results - last 24 hr 04/13/18 04/13/18 04/13/18 06:51 06:51 06:51 Hgb 9.4 L Hct 28.3 L PT 14.1 INR 1.1 Sodium 139 Potassium 3.7 Chloride 107 Carbon Dioxide 26 Anion Gap 10 BUN 6 L Creatinine 0.85 Estimated GFR (MDRD) 86 Glucose 102 Calcium 8.1 Phosphorus 2.0 L Magnesium 1.5 L
[2018-04-13] MEDS ORDERED: Magnesium 2 GM/50 ML 2 GM in Premix Bag 1 BAG IVPB SCH (16:15)
[2018-04-13] MEDS ORDERED: Potassium Phosphate 20 MMOL in Sodium Chloride 0.9% 250 ML 250 ML IVPB SCH (16:15)
--- NOTE | 2018-04-13 16:22 | PDOC.PN ---
- Subjective Encounter Start Date: 04/13/18 Encounter Start Time: 11:45 Mr. Perez was seen today in follow-up of medical management in patient s/p sigmoid colectomy. He does not have any complaints. He denies chest pain or shortness of breath. - Objective MAR Reviewed: Yes Vital Signs & Weight: Vital Signs (12 hours) Temp Pulse Pulse Resp BP BP Pulse Ox 04/13/18 12:58 96.9 F L 88 16 110/72 97 04/13/18 10:30 77 149/94 H 04/13/18 07:55 99.9 F H 80 12 144/77 H 94 L Weight Weight 242 lb Most Recent Monitor Data Heart Rate from ECG 73 NIBP 105/58 NIBP BP-Mean 73 Respiration from ECG 17 SpO2 95 I&O: 04/12/18 04/13/18 04/14/18 06:59 06:59 06:59 Intake Total 3119.0 1932 Output Total 990 1650 Balance 2129.0 282 Result Diagrams: 04/13/18 06:51 04/13/18 06:51 Phys Exam - Physical Examination HEENT: PERRLA Respiratory: no wheezing, no rales, no rhonchi Cardiovascular: RRR, no significant murmur, no rub Gastrointestinal: soft, non-tender, no distention, positive bowel sounds Musculoskeletal: edema present trace pedal edema, and chronic venous stasis changes Neurological: non-focal, normal sensation, moves all 4 limbs Dx/Plan (1) HTN (hypertension) Code(s): I10 - ESSENTIAL (PRIMARY) HYPERTENSION Status: Chronic Comment: controlled. (2) Mitral valve replaced Code(s): Z95.2 - PRESENCE OF PROSTHETIC HEART VALVE Status: Acute (3) Chronic anticoagulation Code(s): Z79.01 - INTERMEDIATE (CURRENT) USE OF ANTICOAGULANTS Status: Chronic (4) Colonic hematoma Code(s): S36.529A - CONTUSION OF UNSPECIFIED PART OF COLON, INITIAL ENCOUNTER Status: Acute Comment: s/p Sigmoid colectomy & colostomy and Coumadin reversal . 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
--- NOTE | 2018-04-13 16:58 | PRG ---
DATE OF SERVICE: 04/13/2018 SUBJECTIVE: Mr. Perez is resting. He states he is starting to have some stool passing through his ostomy and passing some gas. MEDICATIONS: 1. Atorvastatin. 2. Lovenox. 3. Fentanyl p.r.n. 4. Iron. 5. Lasix. 6. Synthroid. 7. Protonix 40 b.i.d. 8. Warfarin has been restarted. OBJECTIVE: VITAL SIGNS: Temperature is 98.2, pulse 77, blood pressure 127/72. LUNGS: Clear. ABDOMEN: Protuberant, but nontender. Ostomy is clean and pink. There is some gas and liquid in the ostomy bag. LABORATORY DATA: Hemoglobin is 9.4 this morning. INR is 1.1 on 04/13/2018. Sodium 139, potassium 3.7, BUN and creatinine are 6 and 0.85. Phosphorus was low at 2. Magnesium 1.5. ASSESSMENT: 1. Hypophosphatemia and hypomagnesemia, replaced. 2. Status post volvulus, status post decompression endoscopically with complications of bleeding and mural hematoma in the sigmoid colon necessitating nonelective sigmoid resection for that and the volvulus. He is presently stable and has a colostomy bag starting to function. Recommend rechecking electrolytes tomorrow. We will follow from a distance. If I can be of any further assistance, please do not hesitate to call me. Job ID: [id number]
[2018-04-13] MEDS: Warfarin Sodium 5 MG TAB PO SCH (17:50)
[2018-04-13] MEDS: Atorvastatin Calcium 20 MG TAB PO SCH (20:36)
[2018-04-13] MEDS: Ferrous Sulfate 325 MG TAB PO SCH (20:36)
[2018-04-14] MEDS: D5 1/2 NS w/20 mEq KCL 1,000 ML IV SCH ×3 (02:04→13:57)
[2018-04-14] MEDS: Levothyroxine Sodium 25 MCG TAB PO SCH (05:42)
[2018-04-14] MEDS: fentaNYL Citrate/PF 2,000 MCG in Sodium Chloride 0.9% 60 ML IV PRN (07:03)
[2018-04-14 07:47] LABS: Hemoglobin 9.9 g/dL (14.0-18.0)
[2018-04-14 07:48] LABS: INR-International Normal Ratio 1.1; Prothrombin Time 14.6 SEC (12.0-14.7)
[2018-04-14 08:05] LABS: Phosphorus 2.3 mg/dL (2.3-4.7)
[2018-04-14 08:09] LABS: Anion Gap 9 mmol/L (10-20); BUN (Urea Nitrogen) 6 mg/dL (8.4-25.7); Calc. Creatinine Clearance 100 mL/min (70-130); Calcium 8.2 mg/dL (7.8-10.44); Carbon Dioxide 28 mmol/L (23-31); Chloride 105 mmol/L (98-107); Estimated GFR-MDRD 87; Glucose 117 mg/dL (83-110); Magnesium 1.9 mg/dL (1.6-2.6); Potassium 3.9 mmol/L (3.5-5.1); Sodium 138 mmol/L (136-145)
[2018-04-14] MEDS ORDERED: Magnesium 2 GM/50 ML 2 GM in Premix Bag 1 BAG IVPB SCH (09:00)
[2018-04-14] MEDS ORDERED: Potassium Phosphate 15 MMOL in Sodium Chloride 0.9% 250 ML 250 ML IVPB SCH (09:00)
[2018-04-14] MEDS: Vit A,C & E/Lutein/Minerals Tablet PO SCH ×2 (09:17→21:06)
[2018-04-14] MEDS: Furosemide 40 MG TAB PO SCH (09:24)
[2018-04-14] MEDS: Pantoprazole 40 MG VIAL IVP SCH ×2 (09:24→21:06)
[2018-04-14] MEDS: Potassium Chloride 10 MEQ TAB PO SCH (09:24)
[2018-04-14] MEDS: Ferrous Sulfate 325 MG TAB PO SCH ×2 (09:24→21:06)
[2018-04-14] MEDS: Enoxaparin Sodium 100 MG/ML SYRINGE SC SCH ×2 (11:08→21:05)
--- NOTE | 2018-04-14 16:02 | PDOC.PN ---
- Subjective Encounter Start Date: 04/14/18 Encounter Start Time: 15:58 Mr. Perez was seen today in follow-up of medical management following colon resection. He does not have any complaints. He feels tired, and says that he notes some abdominal discomfort when he gets up to move. It was reported to me that he was not very interested in learning about Ostomy care. He also told the Physical Therapist that he was too tired to participate in PT. - Objective MAR Reviewed: Yes Vital Signs & Weight: Vital Signs (12 hours) Temp Pulse Resp BP Pulse Ox 04/14/18 15:37 97.3 F L 66 16 113/73 94 L 04/14/18 11:22 98.0 F 76 18 144/81 H 96 04/14/18 08:10 93 L 04/14/18 08:07 98.0 F 77 16 140/85 93 L 04/14/18 04:27 98.3 F 75 20 123/81 93 L Weight Weight 242 lb Most Recent Monitor Data Heart Rate from ECG 73 NIBP 105/58 NIBP BP-Mean 73 Respiration from ECG 17 SpO2 95 I&O: 04/13/18 04/14/18 04/15/18 06:59 06:59 06:59 Intake Total 1932 2290 Output Total 1650 1325 Balance 282 965 Result Diagrams: 04/14/18 07:19 04/14/18 07:19 Phys Exam - Physical Examination Respiratory: no wheezing, no rales, no rhonchi, clear to auscultation bilateral Cardiovascular: RRR, no significant murmur, no rub Gastrointestinal: soft, no distention, positive bowel sounds + mild diffuse tenderness, no rebound or guarding Musculoskeletal: pulses present, edema present + chronic venous stasis changes, and 2+ edema Psychiatric: normal affect, A&O x 3 Dx/Plan (1) HTN (hypertension) Code(s): I10 - ESSENTIAL (PRIMARY) HYPERTENSION Status: Chronic Comment: controlled. (2) Mitral valve replaced Code(s): Z95.2 - PRESENCE OF PROSTHETIC HEART VALVE Status: Acute (3) Chronic anticoagulation Code(s): Z79.01 - NURSING HOME (CURRENT) USE OF ANTICOAGULANTS Status: Chronic (4) Colonic hematoma Code(s): S36.529A - CONTUSION OF UNSPECIFIED PART OF COLON, INITIAL ENCOUNTER Status: Acute Comment: s/p Sigmoid colectomy & colostomy and Coumadin reversal . 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 His INR was 1.1 again today. Will give a higher dose of coumadin tonight * MICHELLE- stable * recent lasrge Hematoma of the colon wall- his H&H has been stable * Encouraged participation in PT, and learning about Ostomy care * Discussed discharge planning with the patient. I believe he is not ready to go home yet, and would benefit from a stay in residential. He agrees, and will consult Case Management for residential placement.
[2018-04-14] MEDS ORDERED: Warfarin Sodium 10 MG TAB PO ONE (17:00)
[2018-04-14] MEDS: Atorvastatin Calcium 20 MG TAB PO SCH (21:07)
--- NOTE | 2018-04-14 22:29 | PDOC.GSPN ---
Surgery Progress Note: Subj - Subjective Narrative: Patient is feeling pretty good. He denies any nausea and states that his pain is minimal except for when he coughs. He is pulling about 750 on incentive spirometer and was coached on IS use. His incisions are clean. His ostomy is healthy but edematous and does not have any output yet except for edema fluid. H &H are stable and he is back on full dose anticoagulation with Lovenox. Assessment/plan: Doing well status post sigmoid colectomy with end colostomy. He has not demonstrated interest or ability in caring for his ostomy at this point. We will continue to work with him in terms of ostomy training. He is minimally mobile at baseline and will require placement after discharge from the hospital and the case management rn is working on this. Await flatus before advancing diet. Electrolytes replaced yesterday and normal on recheck today. Surgery Progress Note: Obj - Vital signs Vital signs: Vital Signs - Most Recent Temp Pulse Resp BP Pulse Ox 98.5 F 72 19 131/80 94 L 04/14/18 21:08 04/14/18 21:08 04/14/18 21:08 04/14/18 21:08 04/14/18 21:08 Surgery Progress Note: Results - Labs Result Diagrams: 04/14/18 07:19 04/14/18 07:19
[2018-04-15] MEDS: D5 1/2 NS w/20 mEq KCL 1,000 ML IV SCH ×2 (00:51→17:08)
[2018-04-15] MEDS: Levothyroxine Sodium 25 MCG TAB PO SCH (05:13)
[2018-04-15 06:50] LABS: #Eosinphils 0.3 thou/uL (0.0-0.7); #Lymphocytes 1.2 thou/uL (1.20-3.40); #Monocytes 0.3 thou/uL (0.11-0.59); #Neutrophils 1.9 thou/uL (1.40-6.50); %Basophils 0.4 % (0.0-1.0); %Eosinophils 8.4 % (0.0-10.0); %Lymphocytes 31.3 % (21.0-51.0); %Monocytes 9.2 % (0.0-10.0); %Neutrophils 50.6 % (42.0-75.0); Hemoglobin 9.9 g/dL (14.0-18.0); Mean Corpuscular HGB CONC 33.9 g/dL (32.0-36.0); Mean Corpuscular Hemoglobin 31.8 pg (27.0-31.0); Mean Corpuscular Volume 93.6 fL (78.0-98.0); Mean Platelet Volume 6.4 fL (7.4-10.4); Platelet Count 246 thou/uL (130-400); Red Blood Cell (RBC) Count 3.11 mill/uL (4.70-6.10); White Blood Cell (WBC) Count 3.7 thou/uL (4.8-10.8)
[2018-04-15 06:51] LABS: INR-International Normal Ratio 1.4; Prothrombin Time 16.9 SEC (12.0-14.7)
[2018-04-15 06:58] LABS: Anion Gap 8 mmol/L (10-20); BUN (Urea Nitrogen) 5 mg/dL (8.4-25.7); Calc. Creatinine Clearance 99 mL/min (70-130); Calcium 8.2 mg/dL (7.8-10.44); Carbon Dioxide 32 mmol/L (23-31); Chloride 102 mmol/L (98-107); Estimated GFR-MDRD 86; Glucose 113 mg/dL (83-110); Magnesium 1.7 mg/dL (1.6-2.6); Phosphorus 2.3 mg/dL (2.3-4.7); Potassium 3.6 mmol/L (3.5-5.1); Sodium 138 mmol/L (136-145)
[2018-04-15] MEDS: Potassium Chloride 10 MEQ TAB PO SCH (09:05)
[2018-04-15] MEDS: Vit A,C & E/Lutein/Minerals Tablet PO SCH ×2 (09:05→20:53)
[2018-04-15] MEDS: Ferrous Sulfate 325 MG TAB PO SCH ×2 (09:05→20:54)
[2018-04-15] MEDS: Pantoprazole 40 MG VIAL IVP SCH ×2 (09:06→20:54)
[2018-04-15] MEDS: Furosemide 40 MG TAB PO SCH (09:06)
[2018-04-15] MEDS: Enoxaparin Sodium 100 MG/ML SYRINGE SC SCH ×2 (09:06→20:53)
[2018-04-15] MEDS ORDERED: traMADol HCl 50 MG TAB PO PRN ×2 (09:20→09:21)
[2018-04-15] MEDS ORDERED: HYDROcodone/Acetaminophen 5/325 mg Tablet PO PRN ×2 (09:22→09:23)
[2018-04-15] MEDS ORDERED: Fentanyl 100 MCG/2 ML VIAL SLOW IVP PRN (09:23)
--- NOTE | 2018-04-15 12:23 | PDOC.PN ---
- Subjective Encounter Start Date: 04/15/18 Encounter Start Time: 12:21 Subjective: feels better. denies any abd pain or N/V. -: reports that he sat up in chair today but hasn't walked yet - Objective MAR Reviewed: Yes Vital Signs & Weight: Vital Signs (12 hours) Temp Pulse Resp BP Pulse Ox 04/15/18 11:37 98.4 F 75 20 138/75 95 04/15/18 08:55 95 04/15/18 07:45 97.9 F 81 18 155/85 H 95 04/15/18 04:00 98 F 75 20 106/66 96 04/15/18 00:27 97.7 F 78 22 H 113/71 94 L Weight Weight 242 lb Most Recent Monitor Data Heart Rate from ECG 73 NIBP 105/58 NIBP BP-Mean 73 Respiration from ECG 17 SpO2 95 I&O: 04/14/18 04/15/18 04/16/18 06:59 06:59 06:59 Intake Total 2290 2530 550 Output Total 1325 4475 Balance 965 -1945 550 Result Diagrams: 04/15/18 06:13 04/15/18 06:13 Additional Labs: Laboratory Tests 04/10/18 04/10/18 04/11/18 09:25 19:40 04:30 INR 3.3 1.4 1.2 04/13/18 04/14/18 04/15/18 06:51 07:19 06:13 INR 1.1 1.1 1.4 Microbiology 04/10/18 10:21 Urine murphy catheter Urine Culture - Final NO GROWTH AT 48 HOURS Phys Exam - Physical Examination Constitutional: NAD HEENT: PERRLA, moist MMs, sclera anicteric, oral pharynx no lesions Neck: no nodes, no JVD, supple, full ROM Respiratory: no wheezing, no rales, no rhonchi, clear to auscultation bilateral Cardiovascular: RRR, no significant murmur Gastrointestinal: soft, no distention ostomy w clear looking fluid but no stools Musculoskeletal: no edema, pulses present Neurological: non-focal, normal sensation, moves all 4 limbs Psychiatric: normal affect, A&O x 3 Skin: no rash Dx/Plan (1) Colonic hematoma Code(s): S36.529A - CONTUSION OF UNSPECIFIED PART OF COLON, INITIAL ENCOUNTER Status: Acute Comment: s/p Sigmoid colectomy & colostomy and Coumadin reversal . 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 no blood in Ostomy bag (6) HLD (hyperlipidemia) Code(s): E78.5 - HYPERLIPIDEMIA, UNSPECIFIED Status: Chronic Comment: continue statin. (7) HTN (hypertension) Code(s): I10 - ESSENTIAL (PRIMARY) HYPERTENSION Status: Chronic Comment: controlled. (8) Mechanical heart valve present Code(s): Z95.2 - PRESENCE OF PROSTHETIC HEART VALVE Status: Chronic (9) MICHELLE (obstructive sleep apnea) Code(s): G47.33 - OBSTRUCTIVE SLEEP APNEA (ADULT) (PEDIATRIC) Status: Chronic (10) Venous stasis dermatitis of both lower extremities Code(s): I87.2 - VENOUS INSUFFICIENCY (CHRONIC) (PERIPHERAL) Status: Chronic - Plan continue antibiotics, PT/OT, respiratory therapy, incentive spirometry, out of bed/ambulate, DVT proph w/SCDs HD stable. INR still subtherapeutic .cont low dose coumadin given recent Sx -: home meds as below -: gentle IVF.monitor lytes and replace as needed -: HD stable. Advance diet per primary team. -: Rehab eval per pt wishes * . Review of Systems - Review of Systems Constitutional: weakness, malaise. negative: fever, chills, sweats, other Respiratory: negative: Cough, Dry, Shortness of Breath, Hemoptysis, SOB with Excertion, Pleuritic Pain, Sputum, Wheezing Cardiovascular: negative: chest pain, palpitations, orthopnea, paroxysmal nocturnal dyspnea, edema, light headedness, other Gastrointestinal: negative: Nausea, Vomiting, Abdominal Pain, Diarrhea, Constipation, Melena, Hematochezia, Other Genitourinary: negative: Dysuria, Frequency, Incontinence, Hematuria, Retention , Other Musculoskeletal: negative: Neck Pain, Shoulder Pain, Arm Pain, Back Pain, Hand Pain, Leg Pain, Foot Pain, Other Neurological: negative: Weakness, Numbness, Incoordination, Change in Speech, Confusion, Seizures, Other - Medications/Allergies Allergies/Adverse Reactions: Allergies Allergy/AdvReac Type Severity Reaction Status Date / Time No Known Drug Allergies Allergy Verified 04/10/18 15:06 Medications: Current Medications Hydrocodone Bitart/Acetaminophen ([place] 5/325) 1 tab PO Q4H PRN PRN Reason: Pain (1-4) Hydrocodone Bitart/Acetaminophen ([place] 5/325) 2 tab PO Q4H PRN PRN Reason: Pain (5-10) Atorvastatin Calcium (Lipitor) 20 mg PO HS [facility] Last Admin: 04/14/18 21:07 Dose: 20 mg Enoxaparin Sodium (Lovenox) 100 mg SC 0900,2100 [facility] Last Admin: 04/15/18 09:06 Dose: 100 mg Fentanyl (Sublimaze) 50 mcg SLOW IVP Q4H PRN PRN Reason: Severe Pain (7-10) Ferrous Sulfate (Feosol) 325 mg PO BID [facility] Last Admin: 04/15/18 09:05 Dose: 325 mg Furosemide (Lasix) 40 mg PO DAILY [facility] Last Admin: 04/15/18 09:06 Dose: 40 mg Hypromellose (Systane Gel) 0 gm EA EYE Q4H PRN PRN Reason: Dry Eyes Last Admin: 04/12/18 09:33 Dose: 1 drop Potassium Chloride/Dextrose/Sod Cl (D5 1/2 Ns W/20 Meq Kcl) 1,000 mls @ 75 mls/ hr IV .[id number] [facility] Last Admin: 04/15/18 00:51 Dose: 1,000 mls Levothyroxine Sodium (Synthroid) 25 mcg PO 0600 [facility] Last Admin: 04/15/18 05:13 Dose: 25 mcg Miscellaneous Medication (Pharmacy To Dose) 1 each PO PRN PRN PRN Reason: Pharmacy to dose Multivitamins/Minerals (Ocuvite With Lutein) 1 tab PO BID [facility] Last Admin: 04/15/18 09:05 Dose: 1 tab Naloxone HCl (Narcan) 0.2 mg IV Q5MIN PRN PRN Reason: RR <8 or pt obtun/unarousable Naloxone HCl (Narcan) 0.2 mg IV Q5MIN PRN PRN Reason: RR <8 or pt obtun/unarousable Ondansetron HCl (Zofran) 4 mg IVP Q6H PRN PRN Reason: Nausea/Vomiting Pantoprazole Sodium (Protonix) 40 mg IVP BID [facility] Last Admin: 04/15/18 09:06 Dose: 40 mg Polyvinyl Alcohol/Povidone (Refresh Classic Eye Drops) 1 each EA EYE Q4H PRN PRN Reason: Dry Eyes Potassium Chloride (Klor-Con 10) 10 meq PO DAILY [facility] Last Admin: 04/15/18 09:05 Dose: 10 meq Promethazine HCl (Phenergan) 12.5 mg IM Q4H PRN PRN Reason: Nausea/Vomiting Sodium Chloride (Flush - Normal Saline) 10 ml IVF PRN PRN PRN Reason: Saline Flush Tramadol HCl (Ultram) 50 mg PO Q6H PRN PRN Reason: Pain (1-4) Tramadol HCl (Ultram) 100 mg PO Q6H PRN PRN Reason: Pain (5-10) Warfarin Sodium (Coumadin) 5 mg PO SuMoWeThFr@1700 [facility] Last Admin: 04/13/18 17:50 Dose: 5 mg Warfarin Sodium (Coumadin) 2.5 mg PO TuSa@1700 [facility]
--- NOTE | 2018-04-15 15:14 | PRG ---
DATE OF SERVICE: 04/14/2018 SUBJECTIVE: Mr. Perez is doing well. He is having flatus and ostomy. He is ready to get rehab he reports. OBJECTIVE: VITAL SIGNS: Stable. He is afebrile. ABDOMEN: Soft and nontender. Bowel sounds are positive. ABDOMEN: He has slightly distended abdomen. EXTREMITIES: No clubbing, cyanosis, or edema. He is still being anticoagulated Hemoglobin stable. White count is normal. Magnesium and phosphorus corrected. ASSESSMENT: 1. Hypophosphatemia and hypomagnesemia, improved. 2. bridged back to oral anticoagulation, I suspect he will be going back to rehab. At this time, we will sign off. If I can be of any further assistance in his care, please do not hesitate to contact me over the weekend. Dr. Guy will be on-call for GI. Job ID: [id number]
[2018-04-15] MEDS ORDERED: Warfarin Sodium 2.5 MG TAB PO SCH (17:00)
[2018-04-15] MEDS: Docusate 100 MG CAP PO SCH (20:54)
[2018-04-15] MEDS: Atorvastatin Calcium 20 MG TAB PO SCH (20:54)
[2018-04-15] MEDS: Tamsulosin HCl 0.4 MG CAP PO SCH (20:54)
--- NOTE | 2018-04-15 21:28 | PDOC.GSPN ---
Surgery Progress Note: Subj - Subjective Narrative: Patient feels pretty good. He did not feel like standing with physical therapy earlier today but he did to bed exercises with them. He has been coughing quite a bit but not bringing anything up. He has been using his incentive spirometer but hasn't gotten past one thousand. He is 95% saturated on 2 L. He has 325 mL's of colostomy output documented but this is not stool, rather edema fluid. Urine output is 4 L and H&H are stable. INR is 1.4. There is a small amount of serous drainage from his midline incision but no cellulitis and his ostomy is edematous but patent. Assessment/plan: Doing well status post sigmoid colectomy and colostomy. Awaiting return of bowel function. Start bowel regimen. Start scheduled nebs. Leaving the Alejo for today due to poor mobility and diuresis. Surgery Progress Note: Obj - Vital signs Vital signs: Vital Signs - Most Recent Temp Pulse Resp BP Pulse Ox 98.2 F 82 20 151/64 H 91 L 04/15/18 20:37 04/15/18 20:37 04/15/18 20:37 04/15/18 20:37 04/15/18 20:37 Surgery Progress Note: Results - Labs Result Diagrams: 04/15/18 06:13 04/15/18 06:13
[2018-04-16] MEDS: Levothyroxine Sodium 25 MCG TAB PO SCH (05:26)
[2018-04-16 06:01] LABS: INR-International Normal Ratio 1.9; Prothrombin Time 21.8 SEC (12.0-14.7)
[2018-04-16 06:06] LABS: Anion Gap 12 mmol/L (10-20); BUN (Urea Nitrogen) 4 mg/dL (8.4-25.7); Calc. Creatinine Clearance 89 mL/min (70-130); Calcium 8.2 mg/dL (7.8-10.44); Carbon Dioxide 30 mmol/L (23-31); Chloride 99 mmol/L (98-107); Estimated GFR-MDRD 76; Glucose 144 mg/dL (83-110); Magnesium 1.6 mg/dL (1.6-2.6); Potassium 3.7 mmol/L (3.5-5.1); Sodium 137 mmol/L (136-145)
[2018-04-16] MEDS: D5 1/2 NS w/20 mEq KCL 1,000 ML IV SCH ×2 (06:15→16:19)
[2018-04-16 06:18] LABS: Phosphorus 1.9 mg/dL (2.3-4.7)
[2018-04-16] MEDS ORDERED: Potassium Phosphate 30 MMOL in Sodium Chloride 0.9% 500 ML IVPB SCH (06:45)
[2018-04-16] MEDS: Docusate 100 MG CAP PO SCH ×2 (07:48→20:41)
[2018-04-16] MEDS: Enoxaparin Sodium 100 MG/ML SYRINGE SC SCH ×2 (07:48→20:41)
[2018-04-16] MEDS: Ferrous Sulfate 325 MG TAB PO SCH ×2 (07:49→20:42)
[2018-04-16] MEDS: Vit A,C & E/Lutein/Minerals Tablet PO SCH ×2 (07:49→20:42)
[2018-04-16] MEDS: Potassium Chloride 10 MEQ TAB PO SCH (07:49)
[2018-04-16] MEDS: Pantoprazole 40 MG VIAL IVP SCH ×2 (07:50→20:41)
[2018-04-16] MEDS: Furosemide 40 MG TAB PO SCH (07:50)
[2018-04-16] MEDS: Polyethylene Glycol 3350 17 GM Packet PO SCH (07:50)
--- NOTE | 2018-04-16 13:02 | PRG ---
DATE OF SERVICE: 04/16/2018 SUBJECTIVE: Mr. Perez is postoperative day #5 from a laparotomy with sigmoid colectomy and a colostomy formation. He notes that he is coughing up phlegm, but not vomiting. He has taken a little bit of clear liquids, but not much. He has not been ambulating because of his perception of pain. He does note that he complains of abdominal pain, especially when he coughs. He still has minimal ostomy output. He has got a scant amount of bloody-looking fluid in his bag when I saw him today. OBJECTIVE: VITAL SIGNS: On examination, he is afebrile with a temperature of 99.4. His pulse is between 100 and 110. This is up from yesterday when his pulse was between 76 and 80. An EKG is pending for evaluation of this. Blood pressure is stable at 106/65. His urine output was 2900 mL for yesterday. LUNGS: Clear to auscultation. ABDOMEN: Obese and protuberant. Dressing is intact on the midline. He has got a ostomy bag on the right lower quadrant and he is wearing an abdominal binder around the ostomy. Bowel sounds are scant. Those that I heard were somewhat tympanitic. LABORATORY DATA: His INR currently is 1.9 (he is on Coumadin). His CBC was not obtained today. Chemistries reveal normal electrolytes. His phosphorus is dropped down to 1.9. ASSESSMENT AND PLAN: In summary, he is continuing to recover from his sigmoid colectomy for perforated diverticulitis. He still does not have bowel function. He is still getting IV fluids at 75 mL/h. Has been diuresed as well. Continue clear liquids as tolerated for now. He will need to go to a mcc. At this point, he is stable for discharge. Additionally, as mentioned, a 12-lead EKG has been ordered to evaluate his new tachycardia today. Job ID: [id number]
[2018-04-16] MEDS: Warfarin Sodium 5 MG TAB PO SCH (16:19)
[2018-04-16] MEDS: Atorvastatin Calcium 20 MG TAB PO SCH (20:42)
[2018-04-16] MEDS: Tamsulosin HCl 0.4 MG CAP PO SCH (20:42)
[2018-04-17] MEDS: Levothyroxine Sodium 25 MCG TAB PO SCH (05:38)
[2018-04-17 06:12] LABS: INR-International Normal Ratio 2.7; Prothrombin Time 28.6 SEC (12.0-14.7)
[2018-04-17 06:27] LABS: Anion Gap 14 mmol/L (10-20); BUN (Urea Nitrogen) 7 mg/dL (8.4-25.7); Calc. Creatinine Clearance 88 mL/min (70-130); Calcium 8.4 mg/dL (7.8-10.44); Carbon Dioxide 29 mmol/L (23-31); Chloride 98 mmol/L (98-107); Estimated GFR-MDRD 75; Glucose 155 mg/dL (83-110); Magnesium 1.4 mg/dL (1.6-2.6); Potassium 4.1 mmol/L (3.5-5.1); Sodium 137 mmol/L (136-145)
[2018-04-17 07:53] LABS: Phosphorus 2.4 mg/dL (2.3-4.7)
[2018-04-17] MEDS: D5 1/2 NS w/20 mEq KCL 1,000 ML IV SCH ×2 (08:16→20:39)
[2018-04-17 08:39] LABS: #Eosinphils 0.3 thou/uL (0.0-0.7); #Lymphocytes 0.9 thou/uL (1.20-3.40); #Monocytes 0.8 thou/uL (0.11-0.59); #Neutrophils 8.2 thou/uL (1.40-6.50); %Basophils 0.1 % (0.0-1.0); %Lymphocytes 8.7 % (21.0-51.0); %Monocytes 8.1 % (0.0-10.0); %Neutrophils 80.1 % (42.0-75.0); Hemoglobin 8.9 g/dL (14.0-18.0); Mean Corpuscular HGB CONC 33.3 g/dL (32.0-36.0); Mean Corpuscular Hemoglobin 31.2 pg (27.0-31.0); Mean Corpuscular Volume 93.8 fL (78.0-98.0); Mean Platelet Volume 6.8 fL (7.4-10.4); Platelet Count 312 thou/uL (130-400); RBC Distribution Width 12.2 % (11.5-14.5); Red Blood Cell (RBC) Count 2.84 mill/uL (4.70-6.10); White Blood Cell (WBC) Count 10.2 thou/uL (4.8-10.8)
--- NOTE | 2018-04-17 09:16 | PRG ---
DATE OF SERVICE: 04/17/2018 SUBJECTIVE: Mr. Perez is postoperative day #6 from a laparotomy with sigmoid colectomy and colostomy formation and treatment of sigmoid volvulus with bleeding after his volvulus reduction. He notes that he continues to cough up phlegm, but denies vomiting. He is still taking some clear liquids. He has been encouraged to ambulate, but tells me that he has not been ambulating much because of his perceived pain. He still has a Alejo catheter in because of his limited mobility and his urine output. He has had nothing significant out his colostomy. OBJECTIVE: VITAL SIGNS: On examination, he is afebrile with temperature 99.2 and pulse is 110. His pulse has been over 100 for the past couple of days. His EKG for yesterday shows sinus tachycardia. Blood pressure is 109/63. LUNGS: Clear to auscultation. ABDOMEN: Obese, but appears to be soft. There is very hypoactive bowel sounds. His incision was inspected and was found to be a little bloody oozing from the bottom part of the incision, but this appears to be old without any active bleeding. His abdominal binder was replaced. LABORATORY DATA: His white blood cell count is low at 3.7 this morning. He; however, has a normal differential. His hemoglobin is stable at 9.9. Basic metabolic panel is unremarkable. His magnesium is a little bit low at 1.4. ASSESSMENT AND PLAN: The patient is making a slow recovery following his laparotomy. Still does not have appropriate bowel function and we will continue with him on clear liquids for now. He is encouraged to ambulate. Because of his limited mobility and his urine output with his diuresis, I will continue his Alejo catheter for now. I will check an abdominal x-ray to make sure there is no significant ileus or obstructive pattern. Job ID: [id number]
[2018-04-17] MEDS: Docusate 100 MG CAP PO SCH (09:51)
[2018-04-17] MEDS: Polyethylene Glycol 3350 17 GM Packet PO SCH (09:51)
[2018-04-17] MEDS: Vit A,C & E/Lutein/Minerals Tablet PO SCH (09:51)
[2018-04-17] MEDS: Pantoprazole 40 MG VIAL IVP SCH ×2 (09:51→21:57)
[2018-04-17] MEDS: Ferrous Sulfate 325 MG TAB PO SCH (09:52)
[2018-04-17] MEDS: Potassium Chloride 10 MEQ TAB PO SCH (09:52)
[2018-04-17] MEDS: Furosemide 40 MG TAB PO SCH (09:52)
[2018-04-17] MEDS: Enoxaparin Sodium 100 MG/ML SYRINGE SC SCH ×2 (09:52→22:28)
--- NOTE | 2018-04-17 10:24 | RAD ---
KUB: DATE: 04/17/2018. PROVIDED CLINICAL HISTORY: Ileus. FINDINGS: The abdominal bowel gas pattern is nonspecific. Multiple loops of nondilated gas-filled small bowel overlie the left mid abdomen. Surgical ajit overlie the midline. The supine nature of the study is not sensitive for detection of pneumoperitoneum. Partially visualized right basilar pleural paren chymal opacity. IMPRESSION: 1. Nonspecific bowel gas pattern. 2. Partially visualized right basilar pleural parenchymal opacity. Consider chest radiographic errol elation. POS: [facility]
--- NOTE | 2018-04-17 15:41 | PDOC.PN ---
- Subjective Encounter Start Date: 04/17/18 Encounter Start Time: 15:40 Went to see patient as a code green was called. He has had some blood oozing from his lower abd incision. Had a gush of blood. - Objective Vital Signs & Weight: Vital Signs (12 hours) Temp Pulse Resp BP Pulse Ox 04/17/18 13:59 120 H 18 04/17/18 12:00 98.5 F 114 H 18 127/75 93 L 04/17/18 10:59 111 H 18 04/17/18 08:15 92 L 04/17/18 08:00 99.0 F 73 14 119/72 92 L 04/17/18 07:21 110 H 16 04/17/18 04:10 99.2 F 114 H 20 109/63 98 Weight Admit Weight 242 lb Weight 242 lb Most Recent Monitor Data Heart Rate from ECG 73 NIBP 105/58 NIBP BP-Mean 73 Respiration from ECG 17 SpO2 95 I&O: 04/16/18 04/17/18 04/18/18 06:59 06:59 06:59 Intake Total 3000 2850 Output Total 3000 1425 Balance 0 1425 Result Diagrams: 04/17/18 05:53 04/17/18 05:54 Phys Exam - Physical Examination Constitutional: NAD Hematoma across lower abd. Oozing from incision. Psychiatric: normal affect, A&O x 3 Dx/Plan (1) Acute blood loss anemia Code(s): D62 - ACUTE POSTHEMORRHAGIC ANEMIA Status: Acute Comment: due to # 1.H/H stable post transfusion (2) Colonic hematoma Code(s): S36.529A - CONTUSION OF UNSPECIFIED PART OF COLON, INITIAL ENCOUNTER Status: Acute Comment: s/p Sigmoid colectomy & colostomy and Coumadin reversal . (3) Mitral valve replaced Code(s): Z95.2 - PRESENCE OF PROSTHETIC HEART VALVE Status: Acute (4) Sigmoid volvulus Status: Acute Comment: s/p Correction by colonoscopy (5) Chronic anticoagulation Code(s): Z79.01 - ALF (CURRENT) USE OF ANTICOAGULANTS Status: Chronic (6) HLD (hyperlipidemia) Code(s): E78.5 - HYPERLIPIDEMIA, UNSPECIFIED Status: Chronic Comment: continue statin. (7) HTN (hypertension) Code(s): I10 - ESSENTIAL (PRIMARY) HYPERTENSION Status: Chronic Comment: controlled. (8) Mechanical heart valve present Code(s): Z95.2 - PRESENCE OF PROSTHETIC HEART VALVE Status: Chronic (9) Dehiscence of closure of fascia, superficial or muscular Code(s): T81.32XA - DISRUPTION OF INTERNAL OPERATION (SURGICAL) WOUND, NEC, INIT Status: Acute - Plan * Surgery also responded to code green. * Patient's HR 119. BP 112/62, Sa)2 88% on 2lpm. * Increased oxygen ordered. * Surgery opened the incision and blood clots removed. * Subcut suture cut and incision probed and the fascia had dehisced. * To the OR. K-centra ordered. * INR 2.7.
[2018-04-17] MEDS ORDERED: Phytonadione 10 MG/ML AMP SLOW IVP SCH (16:00)
[2018-04-17] MEDS ORDERED: [UNRECOGNIZED DRUG - OTHER] IV SCH (16:00)
[2018-04-17] MEDS ORDERED: HUM PROTHROMBIN CPLX IV SCH (16:00)
[2018-04-17] MEDS ORDERED: Midazolam HCl 2 mg/2 ml Vial ONE (16:57)
[2018-04-17] MEDS ORDERED: Fentanyl 100 MCG/2 ML VIAL ONE (16:57)
[2018-04-17 16:59] LABS: INR-International Normal Ratio 1.6; PTT 61.2 SEC (22.9-36.1); Prothrombin Time 18.7 SEC (12.0-14.7)
[2018-04-17] MEDS ORDERED: Sodium Chloride 0.9% 30 ML ONE (19:15)
[2018-04-17] MEDS ORDERED: Succinylcholine Chloride 20 MG/ML 10 ml SYRINGE FS ONE (20:22)
[2018-04-17] MEDS ORDERED: CEFAZOLIN 1 GM VIAL ONE (20:22)
[2018-04-17] MEDS ORDERED: Sterile Water 10 ML VIAL ONE (20:22)
[2018-04-17] MEDS ORDERED: Lidocaine 1% PF 5 ML VIAL ONE (20:22)
[2018-04-17] MEDS ORDERED: PROPOFOL 200 MG/20 ML VIAL ONE (20:22)
[2018-04-17] MEDS ORDERED: Vecuronium 10 MG VIAL ONE (20:22)
[2018-04-17] MEDS: Warfarin Sodium 5 MG TAB PO SCH (20:37)
[2018-04-17] MEDS ORDERED: Ventilator Sedation Protocol 1 EACH FS SCH (20:39)
[2018-04-17] MEDS ORDERED: Lorazepam 2 MG/ML VIAL SLOW IVP PRN (20:43)
[2018-04-17] MEDS ORDERED: DISCONTINUE PREVIOUS NARCOTIC PAIN MEDICATIONS AND BENZODIAZEPINES FS SCH (20:43)
[2018-04-17] MEDS ORDERED: Propofol 1,000 MG/100 ML VIAL IV PRN (20:43)
[2018-04-17] MEDS ORDERED: Propofol BOLUS 1,000 MG/100 ML VIAL IV PRN (20:43)
[2018-04-17] MEDS ORDERED: Fentanyl BOLUS 250 ML IVPB PRN (20:43)
[2018-04-17 20:51] LABS: #Eosinphils 0.1 thou/uL (0.0-0.7); #Monocytes 0.6 thou/uL (0.11-0.59); #Neutrophils 6.8 thou/uL (1.40-6.50); %Basophils 0.3 % (0.0-1.0); %Lymphocytes 11.5 % (21.0-51.0); %Monocytes 7.3 % (0.0-10.0); %Neutrophils 79.9 % (42.0-75.0); Hemoglobin 7.9 g/dL (14.0-18.0); Mean Corpuscular HGB CONC 33.3 g/dL (32.0-36.0); Mean Corpuscular Hemoglobin 31.3 pg (27.0-31.0); Mean Corpuscular Volume 93.8 fL (78.0-98.0); Mean Platelet Volume 6.7 fL (7.4-10.4); Platelet Count 324 thou/uL (130-400); RBC Distribution Width 12.1 % (11.5-14.5); Red Blood Cell (RBC) Count 2.51 mill/uL (4.70-6.10); White Blood Cell (WBC) Count 8.5 thou/uL (4.8-10.8)
[2018-04-17 21:00] LABS: Anion Gap 12 mmol/L (10-20); BUN (Urea Nitrogen) 8 mg/dL (8.4-25.7); Calc. Creatinine Clearance 98 mL/min (70-130); Calcium 7.5 mg/dL (7.8-10.44); Carbon Dioxide 28 mmol/L (23-31); Chloride 102 mmol/L (98-107); Estimated GFR-MDRD 85; Glucose 174 mg/dL (83-110); Potassium 3.9 mmol/L (3.5-5.1); Sodium 138 mmol/L (136-145)
--- NOTE | 2018-04-17 21:05 | RAD ---
PORTABLE AP CHEST X-RAY: 04/17/2018 HISTORY: Post central line placement. COMPARISON: 08/09/2017 FINDINGS: The endotracheal tube and nasogastric tube again remain in place and unchanged in position. There ewbb s been interval placement of a right subclavian central venous catheter, with the tip overlying the e xpected location of the distal SVC. This exam was obtained in a shallow depth of inspiration, but no obvious pneumothorax is seen. There is mild bibasilar atelectasis present. There is linear and sli ght patchy density in the right mid lung zone, also probably attributable to atelectasis and overlyin g structures. The lungs are otherwise clear. The cardiac silhouette and pulmonary vasculature are w ithin normal limits. A single-lead left subclavian AICD is stable in position. Median sternotomy wi res are again present. IMPRESSION: 1. Interval placement of right subclavian central venous catheter, without evidence of a pneumothora x. 2. Bibasilar atelectasis with probable area of atelectasis in the right mid lung zone. POS: [facility]
[2018-04-17 21:08] LABS: Phosphorus 2.7 mg/dL (2.3-4.7)
[2018-04-17] MEDS ORDERED: Magnesium 5 GM/10 ML Abboject SYRINGE SLOW IVP SCH (21:45)
[2018-04-17 21:53] LABS: Actual Bicarbonate (HCO3a) 26.9 mEq/L (22-28); Base Excess (BEa) 3.9 mEq/L (-2.0 to +3.0); CO2 Tension 34.3 mmHg (35.0-45.0); Calcium, Ionized 1.01 mmol/L (1.12-1.30); Carboxyhemoglobin (COHb) 1.6 gm% (0.0-3.0); Hemoglobin (Hb) 8.5 g/dL (14.0-18.0); O2 Tension (PaO2) 72.3 mmHg (> 60.0); pH, Arterial 7.51 (7.35-7.45)
[2018-04-17] MEDS ORDERED: CEFAZOLIN 1 GM in Sodium Chloride 0.9% 100 ML IVPB SCH (22:00)
[2018-04-17 22:07] LABS: ALV-art Gradient 205.675 (0-20); Puncture Site R BRACHIAL
[2018-04-17] MEDS: Morphine 2 MG/ML SYRINGE SLOW IVP PRN (22:15)
[2018-04-17] MEDS ORDERED: Enoxaparin Sodium 40 MG/0.4 ML SYRINGE SC SCH (22:15)
[2018-04-17] MEDS: fentaNYL Citrate/PF 2,000 MCG in Sodium Chloride 0.9% 60 ML IV SCH (23:52)
[2018-04-18 05:00] LABS: INR-International Normal Ratio 1.2; Prothrombin Time 15.6 SEC (12.0-14.7)
[2018-04-18] MEDS: D5 1/2 NS w/20 mEq KCL 1,000 ML IV SCH ×3 (05:03→17:32)
[2018-04-18 05:20] LABS: Anion Gap 11 mmol/L (10-20); BUN (Urea Nitrogen) 9 mg/dL (8.4-25.7); Calc. Creatinine Clearance 86 mL/min (70-130); Calcium 7.5 mg/dL (7.8-10.44); Carbon Dioxide 28 mmol/L (23-31); Chloride 101 mmol/L (98-107); Estimated GFR-MDRD 74; Glucose 183 mg/dL (83-110); Magnesium 1.4 mg/dL (1.6-2.6); Phosphorus 1.7 mg/dL (2.3-4.7); Potassium 3.9 mmol/L (3.5-5.1); Sodium 136 mmol/L (136-145)
[2018-04-18 08:01] LABS: Actual Bicarbonate (HCO3a) 28.6 mEq/L (22-28); CO2 Tension 37.9 mmHg (35.0-45.0); Hemoglobin (Hb) 8.2 g/dL (14.0-18.0); O2 Tension (PaO2) 85.9 mmHg (> 60.0); Puncture Site RBA
[2018-04-18 08:02] LABS: ALV-art Gradient 187.575 (0-20)
[2018-04-18] MEDS: Pantoprazole 40 MG VIAL IVP SCH ×2 (09:44→20:18)
[2018-04-18] MEDS: Enoxaparin Sodium 40 MG/0.4 ML SYRINGE SC SCH ×2 (09:44→20:18)
[2018-04-18] MEDS: Piperacillin/Tazobactam 3.375 GM in Sodium Chloride 0.9% 100 ML IVPB SCH ×2 (11:04→17:25)
[2018-04-18] MEDS ORDERED: CCU Electrolyte Replacement 1 EACH FS ONE (11:32)
[2018-04-18 11:33] LABS: #Eosinphils 0.1 thou/uL (0.0-0.7); #Lymphocytes 1.3 thou/uL (1.20-3.40); #Monocytes 1.1 thou/uL (0.11-0.59); #Neutrophils 10.1 thou/uL (1.40-6.50); %Basophils 0.2 % (0.0-1.0); %Eosinophils 0.7 % (0.0-10.0); %Lymphocytes 10.4 % (21.0-51.0); %Monocytes 8.6 % (0.0-10.0); %Neutrophils 80.1 % (42.0-75.0); Hemoglobin 7.5 g/dL (14.0-18.0); Mean Corpuscular HGB CONC 33.6 g/dL (32.0-36.0); Mean Corpuscular Hemoglobin 31.7 pg (27.0-31.0); Mean Corpuscular Volume 94.1 fL (78.0-98.0); Platelet Count 422 thou/uL (130-400); RBC Distribution Width 12.2 % (11.5-14.5); Red Blood Cell (RBC) Count 2.37 mill/uL (4.70-6.10); White Blood Cell (WBC) Count 12.5 thou/uL (4.8-10.8)
--- NOTE | 2018-04-18 11:45 | PDOC.PN ---
- Subjective Encounter Start Date: 04/18/18 Encounter Start Time: 11:43 Mr. Perez was seen today in follow-up of medical management following laparotomy. The events of last night were noted. He is now in the ICU on the ventilator. He is awake and following commands. - Objective MAR Reviewed: Yes Vital Signs & Weight: Vital Signs (12 hours) Temp Pulse Resp BP Pulse Ox 04/18/18 11:37 110 H 23 H 99 04/18/18 11:00 100.2 F H 04/18/18 10:00 100.7 F H 18 04/18/18 08:00 100.7 F H 21 H 99 04/18/18 07:43 112 H 101/62 04/18/18 07:41 112 H 25 H 100 04/18/18 06:00 18 04/18/18 04:00 98.8 F 14 04/18/18 03:50 105 H 107/67 04/18/18 02:00 16 04/18/18 00:21 113 H 04/18/18 00:00 98.7 F 20 04/17/18 23:55 100 Weight Admit Weight 242 lb Weight 242 lb Most Recent Monitor Data Heart Rate from ECG 103 NIBP 96/57 NIBP BP-Mean 70 Respiration from ECG 16 SpO2 99 I&O: 04/17/18 04/18/18 04/19/18 06:59 06:59 06:59 Intake Total 2850 1641 Output Total 1425 860 100 Balance 1425 781 -100 Result Diagrams: 04/18/18 10:26 04/18/18 04:49 Phys Exam - Physical Examination HEENT: PERRLA Respiratory: no wheezing + rhonchi bilaterally, and some rales at the bases Cardiovascular: RRR, no significant murmur, no rub Gastrointestinal: soft + mildly distended Musculoskeletal: pulses present, edema present + chrnic venous stasis changes Dx/Plan (1) HTN (hypertension) Code(s): I10 - ESSENTIAL (PRIMARY) HYPERTENSION Status: Chronic Comment: controlled. 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 (5) Sigmoid volvulus Status: Acute Comment: s/p Correction by colonoscopy (6) MICHELLE (obstructive sleep apnea) Code(s): G47.33 - OBSTRUCTIVE SLEEP APNEA (ADULT) (PEDIATRIC) Status: Chronic - Plan * Discussed with Dr. Rivera. Mr. Perez developed a dehiscence of his wound. He bleed from the wound,( as he is on anticoagulation for a mechanical mitral valve). Anticoagulation was reversed with Vitamin K and K-Centra. His HGB dropped to 7.5, and agree with transfusion of a unit of PRBC's * Due to concerns for possible further bleeding- will place him on a sub- therapeautic dose of Lovenox ( for the Mechanical Valve * HTN- he was hypotensive- and his blood pressure is beginning to recover * Low grade temp- he has bilateral atelectasis by CXR, and historically a poor inspiratory effort during this hospitalization- he has been started on Zosyn * Severe Deconditioning and Morbid Obesity- PT when tolerated- this complicates his recovery
--- NOTE | 2018-04-18 11:54 | PRG ---
DATE OF SERVICE: 04/18/2018 SUBJECTIVE: Mr. Perez is postoperative day #1 from exploratory laparotomy and complex closure of abdominal wall dehiscence/evisceration. He is postoperative day #7 from laparotomy with sigmoid colectomy and colostomy in treatment of sigmoid volvulus. He is intubated and sedated in the Intensive Care Unit. He has been hemodynamically stable overnight. He is not requiring any pressors. He was aggressively hydrated during the surgery with about 4 L of fluid and had good urine output initially, but this is tapering off currently. OBJECTIVE: VITAL SIGNS: On examination, his temperature is 100.2, it was high of 100.7 yesterday; pulse is 103; blood pressure is 96/57. His urine output was initially over 100, but over the past few hours has been tapered off to 20 to 30 mL/h. Nasogastric output is negligible. LUNGS: Clear to auscultation anteriorly. CARDIAC: Regular rate and rhythm. ABDOMEN: Obese with a wound VAC intact. There are no audible bowel sounds. LABORATORY DATA: His hemoglobin results are not back yet this morning. His electrolytes are entirely normal. His calcium is a little low at 7.5. His phosphorus and magnesium are both low as well. These will be supplemented later today. ASSESSMENT: The patient is overall doing well. He has a little mild hypotension and a little decreased urine output. He is only getting IV fluids 120 mL/h. He may still be somewhat hypovolemic. He may also be more anemic. I will await his hemoglobin level from this morning to decide whether to transfuse him or not. His electrolytes will be corrected. He will be maintained on the ventilator at least one more day. I will start some empiric antibiotics as well. Job ID: [id number]
[2018-04-18] MEDS ORDERED: CCU ELECTROLYTE REPLACEMENT PROTOCOL FS PRN (12:04)
[2018-04-18] MEDS ORDERED: Potassium Chloride 20 MEQ TAB PO PRN (12:04)
[2018-04-18] MEDS ORDERED: Potassium Phosphate 12 MMOL in Sodium Chloride 0.9% 250 ML 250 ML IV PRN (12:04)
[2018-04-18] MEDS ORDERED: Magnesium 2 GM/NS 0.9% 100 ML 2 GM in Premix Bag 1 BAG IVPB PRN (12:04)
[2018-04-18] MEDS ORDERED: Magnesium Oxide 400 MG TAB PO PRN (12:04)
[2018-04-18] MEDS ORDERED: Potassium Phosphate 15 MMOL in Sodium Chloride 0.9% 250 ML 250 ML IV PRN (12:04)
[2018-04-18] MEDS ORDERED: Potassium Chloride 40 MEQ in Sodium Chloride 0.9% 250 ML 250 ML IVPB PRN (12:04)
[2018-04-18] MEDS ORDERED: Potassium Chloride 40 MEQ in Premix Bag 1 BAG IVPB PRN (12:04)
[2018-04-18] MEDS: Potassium Phosphate 9 MMOL in Sodium Chloride 0.9% 100 ML IVPB PRN (12:45)
--- NOTE | 2018-04-18 13:42 | PRG ---
DATE OF SERVICE: 04/18/2018 SUBJECTIVE: An 87-year-old morbidly obese gentleman, who underwent emergency surgery yesterday for wound dehiscence. He is status post surgery for a sigmoid volvulus. This morning, he is intubated in the vent and responsive. Has 2+ ankle edema. OBJECTIVE: VITAL SIGNS: Pulse 112, blood pressure 101/63, sats 99%, respirations 22, his temperature has been 100.7. CHEST: Decreased breath sounds without any wheezing. CARDIAC: Normal S1 and S2. No gallops or masses. His white count 8000, hemoglobin and hematocrit 7 and 23, platelet count 324. INR is 1.2. PO2 is 85, pCO2 is 37, His lytes are normal. His magnesium and phosphorus are somewhat low. Last chest x-ray was otherwise unremarkable. IMPRESSION: 1. Status post lap_. 2. Morbid obesity. 3. Severe deconditioning. PLAN: I will keep him intubated for another 24 hours and_ reassess abdominal situation. Continue physical therapy. May consider empiric broad-spectrum antibiotics. Nutrition as per General Surgery. One-half hour critical time. Job ID: [id number] [id number]
--- NOTE | 2018-04-18 22:50 | OP ---
DATE OF PROCEDURE: 04/17/2018 PREOPERATIVE DIAGNOSIS: Dehiscence of abdominal incision with evisceration of intestines. POSTOPERATIVE DIAGNOSIS: Dehiscence of abdominal incision with evisceration of intestines. TEST PERFORMED: Placement of right subclavian central line, exploratory laparotomy with complex closure of the abdominal wall using interrupted deep retention sutures. ANESTHESIA: General endotracheal. INDICATIONS: The patient is an obese 87-year-old white male. He had undergone a sigmoid colectomy for sigmoid colon volvulus 6 days previously. He was given a sigmoid colostomy at that time. Earlier today, a code green was called as the patient had become more tachycardic and hypotensive with decreasing oxygen saturations. He was oozing blood from the inferior aspect of the abdominal wound. When this was opened at bedside, a large volume of blood and clot were retrieved from the abdominal wound and was recognized that he had a palpable dehiscence within his wound. I recommended that he be taken to the operating room for exploratory laparotomy. He was treated with a dose of Kcentra to reverse his full anticoagulation. After his anticoagulation was reversed, he was taken to the operating room. By the time he arrived to the operating room, he had eviscerated and several loops of small bowel were protruding through external to the skin. DESCRIPTION OF OPERATION: Informed consent was obtained. The patient was taken to the operating room where general endotracheal anesthesia was obtained with the patient in supine position. Attention was turned to the right chest. This was selected as he has a defibrillator in the left chest. Right chest was prepped with ChloraPrep and draped in sterile fashion. Local anesthetic was infiltrated and a large gauge needle was passed under the clavicle in subclavian vein on the initial pass. A guidewire was passed through the needle, needle was removed, skin was incised, tract was dilated and a 7-Indonesian triple-lumen catheter was advanced over the wire. Each of the 3 lumens aspirated, blood freely was flushed with heparinized saline. The catheter was secured to the skin exit site with 3-0 silk suture. Sterile occlusive dressing was applied. Attention was then turned to the abdomen. This was prepped with Betadine after the colostomy was excluded under occlusive dressing. The ajit were removed from the upper abdominal incision. The skin was bluntly opened. Attention was turned to the fascia. The dehiscence had extended and the fascia was essentially open from one end to the other, having pulled through the muscle on the right side. The sutures were all intact on the left side of the abdomen. Remaining suture was removed and attention was turned to the intestine. The abdominal wall was coated in old blood. It was difficult to discern the fatty tissue from the underlying muscular tissue. All blood and clot were removed and debrided. Within the abdomen, I was able to identify the omentum which I reflected superiorly. I was able to eviscerate the entire small bowel from the ligament of Treitz to the ileocecal valve. Some of this was adherent to the surgical site inferiorly, but I was able to remove all of it, not of it was particularly dilated, all of it were viable and without injury. I was able to visualize and palpate the right colon and some of the transverse colon. The rectal stump was identified. I tagged this with 3-0 Prolene sutures at each end of the staple line to make further identification easier. There was a good amount of gas within the distal segment of the sigmoid colon. After all areas had been identified and there was no evidence of definite internal abdominal problem, I irrigated the abdomen with 3 L of warm saline. There was a lot of old blood within the abdomen, but no evidence of ongoing bleeding. It appeared that all the active bleeding had come from the abdominal wall musculature as the dehiscence occurred. I then placed 2 sheets of Seprafilm within the abdomen. I attempted to mobilize the fascia, but again, it was difficult to discern the fascia even with the dissection of the overlying fatty tissue. I then closed the fascia with a series of interrupted sutures of #1 Prolene placed in a [id number] fashion. I placed 3 interrupted sutures of #2 nylon as deep retention sutures taking bites several centimeters thick on each side, but bringing them out below the skin. The abdominal wall was appropriately approximated as these were all secured. The subcutaneous tissue was then all irrigated further and finally I placed a dry gauze dressing and then replaced the colostomy appliance. There were no complications. There was negligible new blood loss, but I probably removed 300 mL or 400 mL of old blood during the course of the operation. The patient was taken to the intensive care unit still intubated, but in stable condition. Job ID: [id number]
[2018-04-19] MEDS: Piperacillin/Tazobactam 3.375 GM in Sodium Chloride 0.9% 100 ML IVPB SCH ×4 (00:02→17:01)
[2018-04-19] MEDS: fentaNYL Citrate/PF 2,000 MCG in Sodium Chloride 0.9% 60 ML IV SCH (05:22)
[2018-04-19] MEDS: D5 1/2 NS w/20 mEq KCL 1,000 ML IV SCH ×3 (05:35→20:54)
[2018-04-19 05:44] LABS: INR-International Normal Ratio 1.2
[2018-04-19 05:49] LABS: #Eosinphils 0.4 thou/uL (0.0-0.7); #Lymphocytes 1.5 thou/uL (1.20-3.40); #Monocytes 1.1 thou/uL (0.11-0.59); #Neutrophils 10.1 thou/uL (1.40-6.50); %Basophils 0.2 % (0.0-1.0); %Lymphocytes 11.2 % (21.0-51.0); %Monocytes 8.2 % (0.0-10.0); %Neutrophils 77.5 % (42.0-75.0); Hemoglobin 7.1 g/dL (14.0-18.0); Mean Corpuscular HGB CONC 33.1 g/dL (32.0-36.0); Mean Corpuscular Hemoglobin 30.7 pg (27.0-31.0); Mean Corpuscular Volume 92.8 fL (78.0-98.0); Mean Platelet Volume 6.1 fL (7.4-10.4); Platelet Count 398 thou/uL (130-400); RBC Distribution Width 12.8 % (11.5-14.5); Red Blood Cell (RBC) Count 2.31 mill/uL (4.70-6.10); White Blood Cell (WBC) Count 13.4 thou/uL (4.8-10.8)
[2018-04-19 05:56] LABS: Anion Gap 9 mmol/L (10-20); BUN (Urea Nitrogen) 12 mg/dL (8.4-25.7); Calc. Creatinine Clearance 76 mL/min (70-130); Calcium 7.4 mg/dL (7.8-10.44); Carbon Dioxide 27 mmol/L (23-31); Chloride 102 mmol/L (98-107); Estimated GFR-MDRD 63; Glucose 154 mg/dL (83-110); Potassium 4.2 mmol/L (3.5-5.1); Sodium 134 mmol/L (136-145)
[2018-04-19 05:57] LABS: Phosphorus 1.9 mg/dL (2.3-4.7)
[2018-04-19 07:27] LABS: Actual Bicarbonate (HCO3a) 27.2 mEq/L (22-28); Base Excess (BEa) 3.1 mEq/L (-2.0 to +3.0); CO2 Tension 39.6 mmHg (35.0-45.0); Calcium, Ionized 0.98 mmol/L (1.12-1.30); Carboxyhemoglobin (COHb) 1.8 gm% (0.0-3.0); Hemoglobin (Hb) 8.1 g/dL (14.0-18.0); O2 Tension (PaO2) 91.8 mmHg (> 60.0); Potassium - ABG Lab 4.06 mmol/L (3.70-5.30); pH, Arterial 7.46 (7.35-7.45)
[2018-04-19 07:28] LABS: Puncture Site RRA
[2018-04-19] MEDS: Enoxaparin Sodium 40 MG/0.4 ML SYRINGE SC SCH ×2 (08:00→20:55)
[2018-04-19] MEDS: Pantoprazole 40 MG VIAL IVP SCH ×2 (08:01→20:55)
--- NOTE | 2018-04-19 12:03 | PDOC.PN ---
- Subjective Encounter Start Date: 04/19/18 Encounter Start Time: 12:02 Mr. Perez was seen today in follow-up of medical management following laparomtomy. He is intubated, and awake. He follows commands. - Objective MAR Reviewed: Yes Vital Signs & Weight: Vital Signs (12 hours) Temp Pulse Resp Pulse Ox 04/19/18 10:09 97 04/19/18 10:07 98 14 100 04/19/18 10:00 14 04/19/18 08:00 16 99 04/19/18 07:19 95 04/19/18 07:00 99.1 F 04/19/18 06:00 18 04/19/18 04:00 16 04/19/18 03:13 91 19 100 04/19/18 01:58 19 Weight Admit Weight 242 lb Weight 242 lb Most Recent Monitor Data Heart Rate from ECG 98 NIBP 104/54 NIBP BP-Mean 70 Respiration from ECG 14 SpO2 100 I&O: 04/18/18 04/19/18 04/20/18 06:59 06:59 06:59 Intake Total 1641 3657 Output Total 860 643 125 Balance 781 3014 -125 Result Diagrams: 04/19/18 05:33 04/19/18 05:33 Phys Exam - Physical Examination HEENT: PERRLA + rhonchi and decreased breath sounds bilaterally Cardiovascular: RRR, no significant murmur, no rub Gastrointestinal: soft + mild distention Musculoskeletal: edema present + edema in both upper and lower extremities bilaterally Dx/Plan (1) Acute blood loss anemia Code(s): D62 - ACUTE POSTHEMORRHAGIC ANEMIA Status: Acute Comment: due to # 1.H/H stable post transfusion (2) HTN (hypertension) Code(s): I10 - ESSENTIAL (PRIMARY) HYPERTENSION Status: Chronic Comment: controlled. 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 (6) Sigmoid volvulus Status: Acute Comment: s/p Correction by colonoscopy (7) MICHELLE (obstructive sleep apnea) Code(s): G47.33 - OBSTRUCTIVE SLEEP APNEA (ADULT) (PEDIATRIC) Status: Chronic (8) Wound dehiscence Code(s): T81.30XA - DISRUPTION OF WOUND, UNSPECIFIED, INITIAL ENCOUNTER Status : Acute - Plan * Acute blood loss anemia- will transfuse another unit * HTN- blood pressure is low * Patient had closure of wound, and wound vac is in place * Respiratory Failure- continue Vent support * MVR-continue Lovenox at current dose * Empiric Antibiotics for probable Lung Infection
--- NOTE | 2018-04-19 13:52 | PRG ---
DATE OF SERVICE: 04/19/2018 SUBJECTIVE: Mr. Perez is in the Intensive Care Unit. He remains intubated. He is somewhat sedated, but arouses easily and communicates appropriately. He moves all extremities and response to command. He denies severe pain. He seems to understand his current situation. Yesterday, he was transfused with 1 unit of packed red blood cells when he was found to have a hemoglobin of 7.5. In spite of that transfusion, his hemoglobin this morning is 7.1. His urine output remains somewhat diminished putting out 20 to 30 mL/h. His creatinine has risen from 0.97 yesterday to 1.11 today. OBJECTIVE: VITAL SIGNS: On examination, he is afebrile. Pulse is 89, blood pressure is 104/48. GENERAL: He is resting comfortably in bed. As mentioned, he is alert. HEAD, EYES, EARS, NOSE, AND THROAT: Unremarkable. NECK: Supple. LUNGS: Clear to auscultation. CARDIAC: Regular rate and rhythm. ABDOMEN: He appears to have some bowel sounds. These do not appear to be tympanitic. He does not have focal tenderness to palpation. There is a wound VAC intact in his midline abdominal wound. LABORATORY DATA: His electrolytes are more or less normal. His magnesium is now normal at 2.0. His phosphorus is improved at 1.9. ASSESSMENT: He is stable currently following repair of his abdominal wall dehiscence. He is making appropriate progress. He is being transfused with another unit of packed red blood cells currently. In light of his fluid shifts, it is appropriate to observe him on the ventilator for another day. Hopefully, he will be ready for extubation tomorrow. In regard to his nutrition, I will initiate TPN today. I will also initiate trickle tube feeds through his nasogastric tube since he does have some bowel sounds. Job ID: [id number]
[2018-04-19 15:26] LABS: Hemoglobin 7.8 g/dL (14.0-18.0)
--- NOTE | 2018-04-19 18:53 | PRG ---
DATE OF SERVICE: 04/19/2018 SUBJECTIVE: Mr. Perez' events have been reviewed. He recently had a wound dehiscence complicated by an evisceration during transport down to the OR. He subsequently has been washed out and closed. He remains mechanically ventilated because of the requirements for transfusion. OBJECTIVE: VITAL SIGNS: His temperature is 99, respiratory rate 12, blood pressure 105/56, and heart rate is in 70s. LUNGS: Clear anteriorly. HEART: Regular rhythm. ABDOMEN: Soft, distended. EXTREMITIES: Without asymmetry. LABORATORY DATA: White count is 13.4; hemoglobin was 7.1 this morning, 7.8 at this afternoon; and platelets 398,000. Sodium 134, potassium 4.2, chloride 102, bicarb 27, BUN 12, and creatinine 1.11. The pH 7.46, pCO2 of 39, and pO2 of 91. IMPRESSION: 1. Respiratory failure after abdominal wound dehiscence. 2. Status post resection of the segment of colon because of a large intramural hematoma. 3. Status post presentation of sigmoid volvulus. 4. Deconditioning at this time, it is going to be severe. PLAN: Continue with mechanical ventilation until sure all of his parameters are stable, and we will consider weaning and extubation. Critical care time, 30 minutes. Job ID: [id number]
[2018-04-20] MEDS: Piperacillin/Tazobactam 3.375 GM in Sodium Chloride 0.9% 100 ML IVPB SCH ×4 (00:35→17:56)
[2018-04-20 04:33] LABS: Hemoglobin 8.3 g/dL (14.0-18.0); Platelet Count 331 thou/uL (130-400)
[2018-04-20 04:49] LABS: Anion Gap 10 mmol/L (10-20); BUN (Urea Nitrogen) 9 mg/dL (8.4-25.7); Calc. Creatinine Clearance 88 mL/min (70-130); Calcium 7.6 mg/dL (7.8-10.44); Carbon Dioxide 24 mmol/L (23-31); Chloride 105 mmol/L (98-107); Estimated GFR-MDRD 75; Glucose 146 mg/dL (83-110); Magnesium 2.2 mg/dL (1.6-2.6); Potassium 4.2 mmol/L (3.5-5.1); Sodium 135 mmol/L (136-145)
[2018-04-20 05:04] LABS: Phosphorus 1.8 mg/dL (2.3-4.7)
[2018-04-20] MEDS: D5 1/2 NS w/20 mEq KCL 1,000 ML IV SCH ×2 (05:15→14:45)
[2018-04-20 08:52] LABS: INR-International Normal Ratio 1.2; Prothrombin Time 15.5 SEC (12.0-14.7)
[2018-04-20] MEDS: Pantoprazole 40 MG VIAL IVP SCH ×2 (09:23→21:33)
[2018-04-20] MEDS: Enoxaparin Sodium 40 MG/0.4 ML SYRINGE SC SCH ×2 (09:24→21:33)
[2018-04-20] MEDS: Potassium Phosphate 9 MMOL in Sodium Chloride 0.9% 100 ML IVPB PRN (10:06)
--- NOTE | 2018-04-20 12:12 | PRG ---
DATE OF SERVICE: 04/20/2018 SUBJECTIVE: Mr. Perez remains in the Intensive Care Unit. He is still intubated at this time, although he may be extubated later. He is currently on CPAP and appears to be breathing comfortably. He denies any severe pain and nods understanding to questions. He is postoperative day #3 from repair of his abdominal wall dehiscence and evisceration. He is postoperative day #9 from his sigmoid colectomy for sigmoid colon volvulus. He was transfused with two units of packed red blood cells yesterday and one the day previously. His hemoglobin was 7.1 yesterday morning and came up to 7.8 after the first unit. He received a second unit thereafter and his hemoglobin this morning is 8.3. He continues to receive reduced dose Lovenox at 40 mg subcu twice per day. 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 OBJECTIVE: VITAL SIGNS: Today, he is afebrile with a maximum temperature of 100, pulse currently is 90 and regular, blood pressure is 111/57, oxygen saturations 98%. His urine output for yesterday was 685 mL. LUNGS: Clear to auscultation anteriorly. CARDIAC: Regular rate and rhythm. ABDOMEN: Soft. He has hypoactive bowel sounds. Wound VAC is in place. : He has significant scrotal ecchymosis certainly related to bleeding from his abdominal wall, oozing inferiorly. LABORATORY DATA: His electrolytes are essentially normal. BUN and creatinine are normal. His creatinine is down to 0.95 from yesterday. As mentioned, his hemoglobin today is 8.3. ASSESSMENT: He appears to be stable and making slow progress. He still has a postoperative ileus and has no significant colostomy output. Continue with trickle tube feeds. His TPN was ordered yesterday, but has not yet been started. It should be started later today. Continue his empiric antibiotics. He may be extubated later today as well. Job ID: [id number]
[2018-04-20] MEDS: SODIUM CHLORIDE IV SCH (14:46)
[2018-04-20] MEDS: [UNRECOGNIZED DRUG - OTHER] IV SCH (14:46)
[2018-04-20] MEDS: SODIUM ACETATE IV SCH (14:46)
[2018-04-20] MEDS: POTASSIUM CHLORIDE IV SCH (14:46)
--- NOTE | 2018-04-20 15:28 | PDOC.PN ---
- Subjective Encounter Start Date: 04/20/18 Encounter Start Time: 09:15 Mr. Perez was seen today in follow-up of medical management following laparotomy. He is intubated. He is awake and alert following commands. - Objective MAR Reviewed: Yes Vital Signs & Weight: Vital Signs (12 hours) Temp Pulse Pulse Pulse Resp BP BP 04/20/18 15:00 99.0 F 04/20/18 14:13 87 85/44 L 04/20/18 14:12 88 15 04/20/18 14:02 90 87 86/41 L 04/20/18 14:00 14 04/20/18 13:55 86 88 86/41 L 04/20/18 12:00 14 04/20/18 11:00 99.5 F 04/20/18 10:25 87 98/72 04/20/18 10:23 89 14 04/20/18 10:00 15 04/20/18 08:00 13 04/20/18 07:01 89 134/57 L 04/20/18 07:00 100.0 F H 97 19 04/20/18 06:00 12 04/20/18 04:00 99.0 F 15 BP Pulse Ox Pulse Ox Pulse Ox 04/20/18 15:00 04/20/18 14:13 04/20/18 14:12 99 04/20/18 14:02 85/44 L 99 98 04/20/18 14:00 04/20/18 13:55 85/44 L 99 100 04/20/18 12:00 04/20/18 11:00 04/20/18 10:25 04/20/18 10:23 98 04/20/18 10:00 04/20/18 08:00 99 04/20/18 07:01 04/20/18 07:00 99 04/20/18 06:00 04/20/18 04:00 Weight Admit Weight 242 lb Weight 242 lb Most Recent Monitor Data Heart Rate from ECG 90 NIBP 98/52 NIBP BP-Mean 67 Respiration from ECG 16 SpO2 99 I&O: 04/19/18 04/20/18 04/21/18 06:59 06:59 06:59 Intake Total 1548 4076 200 Output Total 643 685 245 Balance 3014 3392 -45 Result Diagrams: 04/20/18 04:20 04/20/18 04:20 Phys Exam - Physical Examination HEENT: PERRLA Respiratory: no wheezing, no rales, no rhonchi, clear to auscultation bilateral Cardiovascular: RRR, no significant murmur, no rub Gastrointestinal: soft, non-tender, no distention Musculoskeletal: pulses present, edema present + chronic venous stasis changes, and 2+ edema bilaterally Dx/Plan (1) HTN (hypertension) Code(s): I10 - ESSENTIAL (PRIMARY) HYPERTENSION Status: Chronic Comment: controlled. (2) Mitral valve replaced Code(s): Z95.2 - PRESENCE OF PROSTHETIC HEART VALVE Status: Acute (3) Chronic anticoagulation Code(s): Z79.01 - NURSE RESEARCHER (CURRENT) USE OF ANTICOAGULANTS Status: Chronic (4) Colonic hematoma Code(s): S36.529A - CONTUSION OF UNSPECIFIED PART OF COLON, INITIAL ENCOUNTER Status: Acute Comment: s/p Sigmoid colectomy & colostomy and Coumadin reversal . (5) Sigmoid volvulus Status: Acute Comment: s/p Correction by colonoscopy (6) MICHELLE (obstructive sleep apnea) Code(s): G47.33 - OBSTRUCTIVE SLEEP APNEA (ADULT) (PEDIATRIC) Status: Chronic (7) Wound dehiscence Code(s): T81.30XA - DISRUPTION OF WOUND, UNSPECIFIED, INITIAL ENCOUNTER Status : Acute - Plan * HTN- his blood pressure has been low, but now stable off pressors * Acute blood loss- his H&H is stable * Wound dehiscence- s/p closure- wound vac is in place * Mitral Valve replacement- he is on low dose Lovenox, due to two episodes of major bleeding during this hospitalization- will continue to monitor * Hopefully he will be extubated today.
--- NOTE | 2018-04-20 16:41 | PRG ---
DATE OF SERVICE: 04/20/2018 SUBJECTIVE: Mike Perez was gradually decreased from mechanical ventilation standpoint to basically spontaneous breathing trial with pressure support ____ today, he has done well with that. He nods that he is comfortable. I have examined him several times. His minute volume is only 9 L a minute. OBJECTIVE: VITAL SIGNS: He is afebrile. Heart rate is 90, blood pressure 98/ 52, and respiratory rate . LUNGS: Clear. HEART: Regular rhythm. S1 and S2 are normal. ABDOMEN: Soft and nontender without guarding. EXTREMITIES: Without clubbing, cyanosis, or edema. LABORATORY DATA: Hemoglobin is 8.3 and 7.8 yesterday. Electrolytes; sodium 135 , potassium 4.2, chloride 105, bicarb 24, BUN 9, creatinine 0.95, and glucose 146. IMPRESSION: Respiratory failure after abdominal wound dehiscence and evisceration, it is clinically stable at this time. I am optimistic, we may be able to extubate him in the morning. We will have increased ventilatory support tonight, and we will restart with spontaneous breathing trial in the morning, decreasing him to 5/5 and then hopeful extubation early in the morning. Critical care time, 30 minutes. Job ID: [id number] MTDD
[2018-04-20 19:02] LABS: #Eosinphils 0.5 thou/uL (0.0-0.7); #Monocytes 0.7 thou/uL (0.11-0.59); %Basophils 0.4 % (0.0-1.0); %Eosinophils 4.6 % (0.0-10.0); %Lymphocytes 10.1 % (21.0-51.0); %Monocytes 6.9 % (0.0-10.0); Hemoglobin 7.6 g/dL (14.0-18.0); Mean Corpuscular HGB CONC 33.1 g/dL (32.0-36.0); Mean Corpuscular Volume 93.8 fL (78.0-98.0); Mean Platelet Volume 6.1 fL (7.4-10.4); Platelet Count 355 thou/uL (130-400); RBC Distribution Width 13.4 % (11.5-14.5); Red Blood Cell (RBC) Count 2.45 mill/uL (4.70-6.10); White Blood Cell (WBC) Count 10.2 thou/uL (4.8-10.8)
[2018-04-20] MEDS: fentaNYL Citrate/PF 2,000 MCG in Sodium Chloride 0.9% 60 ML IV SCH (19:16)
[2018-04-20 19:27] LABS: ALT (SGPT) 21 U/L (8-55); AST (SGOT) 58 U/L (5-34); Albumin 2.3 g/dL (3.4-4.8); Alkaline Phosphatase 68 U/L (40-150); Anion Gap 10 mmol/L (10-20); BUN (Urea Nitrogen) 8 mg/dL (8.4-25.7); Bilirubin, Total 0.9 mg/dL (0.2-1.2); Calc. Creatinine Clearance 89 mL/min (70-130); Calcium 7.6 mg/dL (7.8-10.44); Carbon Dioxide 24 mmol/L (23-31); Cardiac Risk 4.5 (Less than 4.5); Chloride 105 mmol/L (98-107); Cholesterol 94 mg/dl (< 200 Desired); Estimated GFR-MDRD 76; Globulin 2.2 g/dL (2.4-3.5); Glucose 132 mg/dL (83-110); HDL Cholesterol 21 mg/dL (>60 Neg Risk); LDL Cholesterol, Calculated 55 mg/dL; Magnesium 1.9 mg/dL (1.6-2.6); Phosphorus 2.3 mg/dL (2.3-4.7); Potassium 4.2 mmol/L (3.5-5.1); Protein, Total 4.5 g/dL (5.8-8.1); Sodium 135 mmol/L (136-145); Triglycerides 90 mg/dL (Less than 150)
[2018-04-21] MEDS: D5 1/2 NS w/20 mEq KCL 1,000 ML IV SCH ×3 (00:39→19:51)
[2018-04-21] MEDS: Piperacillin/Tazobactam 3.375 GM in Sodium Chloride 0.9% 100 ML IVPB SCH ×5 (00:46→23:51)
[2018-04-21 04:37] LABS: Anion Gap 7 mmol/L (10-20); BUN (Urea Nitrogen) 11 mg/dL (8.4-25.7); Calc. Creatinine Clearance 94 mL/min (70-130); Calcium 7.6 mg/dL (7.8-10.44); Carbon Dioxide 27 mmol/L (23-31); Chloride 106 mmol/L (98-107); Estimated GFR-MDRD 81; Glucose 135 mg/dL (83-110); Magnesium 2.2 mg/dL (1.6-2.6); Potassium 4.1 mmol/L (3.5-5.1); Sodium 136 mmol/L (136-145)
[2018-04-21 04:38] LABS: Phosphorus 2.5 mg/dL (2.3-4.7)
--- NOTE | 2018-04-21 08:06 | RAD ---
PORTABLE CHEST: Date: 04/21/18 HISTORY: Respiratory distress. FINDINGS: Endotracheal and NG tubes appear in satisfactory position. Heart size is borderline. The patient is r otated. There are postop sternotomy changes. There is linear and interstitial change in the lung base s. Right subclavian line is unchanged in position. IMPRESSION: Essentially stable exam. POS: TPC
[2018-04-21] MEDS: Enoxaparin Sodium 40 MG/0.4 ML SYRINGE SC SCH ×2 (09:17→21:16)
[2018-04-21] MEDS: Pantoprazole 40 MG VIAL IVP SCH ×2 (09:17→21:16)
[2018-04-21 09:28] LABS: Phosphorus 2.5 mg/dL (2.3-4.7)
[2018-04-21 09:30] LABS: ALT (SGPT) 19 U/L (8-55); AST (SGOT) 40 U/L (5-34); Albumin 2.3 g/dL (3.4-4.8); Alkaline Phosphatase 65 U/L (40-150); Anion Gap 10 mmol/L (10-20); BUN (Urea Nitrogen) 13 mg/dL (8.4-25.7); Bilirubin, Total 0.7 mg/dL (0.2-1.2); Calc. Creatinine Clearance 96 mL/min (70-130); Calcium 7.7 mg/dL (7.8-10.44); Carbon Dioxide 25 mmol/L (23-31); Cardiac Risk 4.2 (Less than 4.5); Chloride 105 mmol/L (98-107); Cholesterol 96 mg/dl (< 200 Desired); Estimated GFR-MDRD 83; Globulin 2.2 g/dL (2.4-3.5); Glucose 132 mg/dL (83-110); HDL Cholesterol 23 mg/dL (>60 Neg Risk); LDL Cholesterol, Calculated 57 mg/dL; Potassium 4.3 mmol/L (3.5-5.1); Protein, Total 4.5 g/dL (5.8-8.1); Sodium 136 mmol/L (136-145); Triglycerides 79 mg/dL (Less than 150)
[2018-04-21 09:32] LABS: #Basophils 0.1 thou/uL (0.0-0.2); #Eosinphils 0.5 thou/uL (0.0-0.7); #Lymphocytes 1.1 thou/uL (1.20-3.40); #Monocytes 0.7 thou/uL (0.11-0.59); #Neutrophils 6.4 thou/uL (1.40-6.50); %Basophils 0.7 % (0.0-1.0); %Eosinophils 6.3 % (0.0-10.0); %Lymphocytes 12.4 % (21.0-51.0); %Monocytes 7.6 % (0.0-10.0); %Neutrophils 73.1 % (42.0-75.0); Band 4 % (5-11); Eosinophils 7 % (0-10); Hemoglobin 7.8 g/dL (14.0-18.0); Lymphocytes 20 % (21-51); MDiff Complete? YES; Mean Corpuscular HGB CONC 33.2 g/dL (32.0-36.0); Mean Corpuscular Hemoglobin 31.6 pg (27.0-31.0); Mean Corpuscular Volume 95.1 fL (78.0-98.0); Metamyelocyte 1 % (0-0); Monocytes 3 % (0-10); Neutrophil 65 % (42-75); Platelet Count 333 thou/uL (130-400); Polychromasia SLIGHT = 2-3 cells (100X) (0-2/hpf); RBC Distribution Width 13.6 % (11.5-14.5); Red Blood Cell (RBC) Count 2.47 mill/uL (4.70-6.10); White Blood Cell (WBC) Count 8.7 thou/uL (4.8-10.8)
[2018-04-21] MEDS ORDERED: Albumin 25% 25 GM/100 ML BOT IVPB SCH (10:11)
[2018-04-21] MEDS ORDERED: Furosemide 40 MG/4 ML VIAL SLOW IVP SCH (10:15)
[2018-04-21] MEDS ORDERED: Fleet Enema 133 ML BOT FS SCH (10:15)
[2018-04-21] MEDS ORDERED: Polyethylene Glycol 3350 17 GM Packet PO SCH (10:15)
[2018-04-21] MEDS: Morphine 2 MG/ML SYRINGE SLOW IVP PRN (10:17)
--- NOTE | 2018-04-21 10:25 | PDOC.PN ---
- Subjective Encounter Start Date: 04/21/18 Encounter Start Time: 10:24 Mr. Perez was seen today in follow-up of medical management following laparotomy. He is intubated, awake and alert. - Objective MAR Reviewed: Yes Vital Signs & Weight: Vital Signs (12 hours) Temp Pulse Resp Pulse Ox 04/21/18 09:59 79 04/21/18 07:40 99 04/21/18 07:03 78 04/21/18 07:00 99.1 F 04/21/18 06:00 13 04/21/18 04:00 98.9 F 14 04/21/18 02:28 76 15 98 04/21/18 02:00 14 04/21/18 01:00 98.5 F 04/21/18 00:00 12 99 Weight Admit Weight 242 lb Weight 242 lb Most Recent Monitor Data Heart Rate from ECG 90 NIBP 126/84 NIBP BP-Mean 98 Respiration from ECG 24 SpO2 98 I&O: 04/20/18 04/21/18 04/22/18 06:59 06:59 06:59 Intake Total 4077 3148.6 Output Total 685 845 50 Balance 3392 2303.6 -50 Result Diagrams: 04/21/18 08:57 04/21/18 08:57 Additional Labs: Accuchecks 04/21/18 04/20/18 04/20/18 04:02 22:34 16:25 POC Glucose 138 H 134 H 147 H Phys Exam - Physical Examination HEENT: PERRLA + rhonchi bilaterally, no rales Cardiovascular: RRR, no significant murmur, no rub Gastrointestinal: soft + wound vac in place Musculoskeletal: pulses present, edema present + bilateral upper and lower extremity edema Neurological: non-focal Dx/Plan (1) HTN (hypertension) Code(s): I10 - ESSENTIAL (PRIMARY) HYPERTENSION Status: Chronic Comment: controlled. (2) Mitral valve replaced Code(s): Z95.2 - PRESENCE OF PROSTHETIC HEART VALVE Status: Acute (3) Chronic anticoagulation Code(s): Z79.01 - PRISON (CURRENT) USE OF ANTICOAGULANTS Status: Chronic (4) Colonic hematoma Code(s): S36.529A - CONTUSION OF UNSPECIFIED PART OF COLON, INITIAL ENCOUNTER Status: Acute Comment: s/p Sigmoid colectomy & colostomy and Coumadin reversal . (5) Sigmoid volvulus Status: Acute Comment: s/p Correction by colonoscopy (6) MICHELLE (obstructive sleep apnea) Code(s): G47.33 - OBSTRUCTIVE SLEEP APNEA (ADULT) (PEDIATRIC) Status: Chronic (7) Wound dehiscence Code(s): T81.30XA - DISRUPTION OF WOUND, UNSPECIFIED, INITIAL ENCOUNTER Status : Acute - Plan * HTN- his blood pressure has recovered- he is volume overloaded, and can now give some Lasix, and will also give some albumin as well * Acute blood loss anemia- his H&H has remained stable * Mitral Valve replacement- he is on Lovenox- lower dose, due to significant risk of bleeding * Acute Respiratory failure- plan is for extubation today * Severe Deconditioning- continue PT/OT.
[2018-04-21] MEDS: Docusate Sodium 100 MG/10 ML UDCUP PER TUBE SCH ×2 (10:45→21:16)
[2018-04-21] MEDS: Polyethylene Glycol 3350 17 GM Packet PO SCH (11:36)
--- NOTE | 2018-04-21 12:04 | PRG ---
DATE OF SERVICE: 04/21/2018 SUBJECTIVE: Mike Perez is doing well. He did well all day yesterday with a minute volume of 9 L a minute on 01/20. This morning on 08/20, he reports being comfortable and his minute volume is still less than 10 L a minute. OBJECTIVE: LUNGS: Clear. HEART: Regular rhythm. ABDOMEN: Soft. EXTREMITIES: Without asymmetry. LABORATORY DATA: White count is 8.7, hemoglobin 7.8, platelets 333,000. Electrolytes are normal. Intake and outputs have been positive 8.5 L in the last three days. Lasix was ordered this morning appropriately by the hospitalist. Chest x-ray surprisingly shows minimal pulmonary edema, so I suspect most of this positive fluid balance is third spaced than his abdomen given his recent evisceration. Met with family and answered all his questions. A leak test was performed. If he passes a leak test, he will be extubated today and continued in the Critical Care Unit. Critical care time is 35 minutes. Job ID: [id number] MTDD
[2018-04-21] MEDS: SODIUM CHLORIDE IV SCH (14:30)
[2018-04-21] MEDS: SODIUM ACETATE IV SCH (14:30)
[2018-04-21] MEDS: [UNRECOGNIZED DRUG - OTHER] IV SCH (14:30)
[2018-04-21] MEDS: POTASSIUM CHLORIDE IV SCH (14:30)
[2018-04-21] MEDS ORDERED: Morphine 4 MG/ML VIAL SLOW IVP PRN (15:12)
[2018-04-21] MEDS: Acetaminophen 1,000 MG in Premix Bag 1 BAG IVPB SCH ×2 (18:09→23:58)
[2018-04-22] MEDS: Piperacillin/Tazobactam 3.375 GM in Sodium Chloride 0.9% 100 ML IVPB SCH ×4 (05:32→23:43)
[2018-04-22] MEDS: Acetaminophen 1,000 MG in Premix Bag 1 BAG IVPB SCH ×3 (05:33→17:14)
[2018-04-22 05:35] LABS: Phosphorus 2.4 mg/dL (2.3-4.7)
[2018-04-22 05:39] LABS: Anion Gap 6 mmol/L (10-20); BUN (Urea Nitrogen) 17 mg/dL (8.4-25.7); Calc. Creatinine Clearance 96 mL/min (70-130); Calcium 8.2 mg/dL (7.8-10.44); Carbon Dioxide 32 mmol/L (23-31); Chloride 104 mmol/L (98-107); Estimated GFR-MDRD 83; Glucose 117 mg/dL (83-110); Magnesium 1.9 mg/dL (1.6-2.6); Potassium 3.8 mmol/L (3.5-5.1); Sodium 138 mmol/L (136-145)
[2018-04-22] MEDS: D5 1/2 NS w/20 mEq KCL 1,000 ML IV SCH ×3 (08:27→17:17)
[2018-04-22] MEDS: Docusate Sodium 100 MG/10 ML UDCUP PER TUBE SCH ×2 (08:28→22:01)
[2018-04-22] MEDS: Pantoprazole 40 MG VIAL IVP SCH ×2 (08:28→20:25)
[2018-04-22] MEDS: Enoxaparin Sodium 40 MG/0.4 ML SYRINGE SC SCH ×2 (08:28→20:25)
[2018-04-22] MEDS: Polyethylene Glycol 3350 17 GM Packet PO SCH (08:29)
--- NOTE | 2018-04-22 08:43 | PRG ---
DATE OF SERVICE: 04/22/2018 SUBJECTIVE: This patient remains in the CCU. He was extubated successfully yesterday. Today, I find him somewhat confused, albeit, pleasant. OBJECTIVE: VITAL SIGNS: On exam, his temperature is 97.7 with a T-max yesterday of 100.0, pulse of 78, blood pressure of 118/56, O2 sat 98%. Intake for 24 hours 3960, output 5035. HEENT: Unremarkable. NECK: No adenopathy or JVD. LUNGS: Fairly clear anteriorly. CARDIAC: S1 and S2, regular. ABDOMEN: Obese. A binder in place. Ileostomy is functioning. EXTREMITIES: Generalized edema throughout. IMAGING DATA: His chest x-ray shows slightly elevated right hemidiaphragm compared to left, but that is unchanged. He has some pulmonary vascular congestion bilaterally. LABORATORY DATA: Sodium 138, potassium 3.8, chloride 104, CO2 of 32, BUN 17, creatinine 0.8, and glucose 117. ASSESSMENT: 1. The patient is status post laparotomy. 2. Resolving respiratory failure - he has successfully been extubated. 3. Generalized edema. 4. Encephalopathy, mild. PLAN: He can probably go to the surgical floor if okay with the General surgery team. He is continuing IV antibiotics. He continues on TPN, awaiting the return of bowel function. I will stop his Ativan. He is up in a chair as tolerated. Discontinue daily chest x-ray. Job ID: [id number]
--- NOTE | 2018-04-22 09:18 | RAD ---
CHEST 1 VIEW: Date: 04/22/18 HISTORY: Ventilated patient. COMPARISON: Chest 1 view prior day. FINDINGS: An endotracheal tube is not seen on this examination. Enteric tube is in place with tip at gastric zuleyka dy. Subclavian central venous catheter on the right, tip not well seen. There are layering effusions bilaterally. There is atelectasis in both lungs. Cardiomegaly is present . IMPRESSION: Likely extubation without complication. POS: DAVID
[2018-04-22 10:02] LABS: #Eosinphils 0.5 thou/uL (0.0-0.7); #Lymphocytes 1.3 thou/uL (1.20-3.40); #Monocytes 0.5 thou/uL (0.11-0.59); #Neutrophils 4.7 thou/uL (1.40-6.50); %Basophils 0.2 % (0.0-1.0); %Eosinophils 7.7 % (0.0-10.0); %Monocytes 7.4 % (0.0-10.0); %Neutrophils 66.7 % (42.0-75.0); Mean Corpuscular HGB CONC 33.5 g/dL (32.0-36.0); Mean Corpuscular Hemoglobin 31.7 pg (27.0-31.0); Mean Corpuscular Volume 94.5 fL (78.0-98.0); Mean Platelet Volume 6.3 fL (7.4-10.4); Platelet Count 388 thou/uL (130-400); RBC Distribution Width 13.9 % (11.5-14.5); Red Blood Cell (RBC) Count 2.51 mill/uL (4.70-6.10)
[2018-04-22 10:17] LABS: Phosphorus 2.3 mg/dL (2.3-4.7)
[2018-04-22 10:21] LABS: ALT (SGPT) 13 U/L (8-55); AST (SGOT) 27 U/L (5-34); Albumin 2.5 g/dL (3.4-4.8); Alkaline Phosphatase 60 U/L (40-150); Anion Gap 10 mmol/L (10-20); BUN (Urea Nitrogen) 18 mg/dL (8.4-25.7); Bilirubin, Total 0.7 mg/dL (0.2-1.2); Calc. Creatinine Clearance 110 mL/min (70-130); Carbon Dioxide 27 mmol/L (23-31); Cardiac Risk 4.3 (Less than 4.5); Chloride 104 mmol/L (98-107); Cholesterol 104 mg/dl (< 200 Desired); Estimated GFR-MDRD Greater than 90; Globulin 2.3 g/dL (2.4-3.5); Glucose 141 mg/dL (83-110); HDL Cholesterol 24 mg/dL (>60 Neg Risk); LDL Cholesterol, Calculated 60 mg/dL; Magnesium 1.9 mg/dL (1.6-2.6); Potassium 3.7 mmol/L (3.5-5.1); Protein, Total 4.8 g/dL (5.8-8.1); Sodium 137 mmol/L (136-145); Triglycerides 98 mg/dL (Less than 150)
--- NOTE | 2018-04-22 11:17 | PDOC.PN ---
- Subjective Encounter Start Date: 04/22/18 Encounter Start Time: 11:13 was seen today in follow-up post laparotomy. He is now extubated. Heis a bit confused. He believes he is in Rehab. He denies any dyspnea. - Objective MAR Reviewed: Yes Vital Signs & Weight: Vital Signs (12 hours) Temp Pulse Resp Pulse Ox 04/22/18 11:10 84 18 93 L 04/22/18 08:03 99 04/22/18 08:01 76 21 H 99 04/22/18 08:00 98.7 F 04/22/18 04:00 97.7 F 04/22/18 02:07 80 20 100 04/22/18 00:00 97.9 F Weight Admit Weight 242 lb Weight 242 lb Most Recent Monitor Data Heart Rate from ECG 83 NIBP 106/57 NIBP BP-Mean 73 Respiration from ECG 19 SpO2 92 I&O: 04/21/18 04/22/18 04/23/18 06:59 06:59 06:59 Intake Total 3148.6 3968.1 Output Total 845 5035 490 Balance 2303.6 -1066.9 -490 Result Diagrams: 04/22/18 09:48 04/22/18 09:48 Additional Labs: Accuchecks 04/22/18 04/21/18 04/21/18 04:26 21:30 16:48 POC Glucose 125 H 128 H 131 H 04/21/18 11:57 POC Glucose 134 H Phys Exam - Physical Examination HEENT: PERRLA Respiratory: no wheezing, no rales, no rhonchi + coarse breath sounds,and decreased at the bases Cardiovascular: RRR, no significant murmur, no rub Gastrointestinal: soft, non-tender, no distention, positive bowel sounds Musculoskeletal: pulses present, edema present + edemain the upper and lower extremities Dx/Plan (1) HTN (hypertension) Code(s): I10 - ESSENTIAL (PRIMARY) HYPERTENSION Status: Chronic Comment: controlled. 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 (5) Sigmoid volvulus Status: Acute Comment: s/p Correction by colonoscopy (6) MICHELLE (obstructive sleep apnea) Code(s): G47.33 - OBSTRUCTIVE SLEEP APNEA (ADULT) (PEDIATRIC) Status: Chronic (7) Wound dehiscence Code(s): T81.30XA - DISRUPTION OF WOUND, UNSPECIFIED, INITIAL ENCOUNTER Status : Acute - Plan * HTN- blood pressure is controlled * Volume overload-improved- will give hold on giving Lasix today,re-assess daily. * Wound dehiscence- s/p closure,and wound vac is in place. * His H&H has remained stable * Agree with moving him out of the ICU
--- NOTE | 2018-04-22 13:17 | PRG ---
DATE OF SERVICE: 04/22/2018 SUBJECTIVE: Mr. Perez in an 87-year-old man. 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 He is now postoperative day #5, status post reoperation and abdominal wall closure for postoperative dehiscence. The patient was ultimately successfully extubated yesterday. This morning, he is awake and alert. He reports adequate pain control. Urinary output has been adequate for his age and weight. OBJECTIVE: VITAL SIGNS: Currently, includes blood pressure 106/57, pulse 84, respiratory rate is 18, temperature is 98.7 degrees Fahrenheit, oxygen saturation 93% on room air. ABDOMEN: Soft and obese. Wound VAC is in place over the incision. Ostomy is viable without any stool or gas. The patient has no peritoneal signs on examination. LABORATORY DATA: This morning includes CBC was 7000 white blood cells, hemoglobin and hematocrit stable at 8.0 and 23.7, respectively. Platelet count is 288,000. Metabolic profile, sodium 137, potassium is 3.7, chloride is 104, bicarb is 27, BUN 18, creatinine 0.76, glucose is 141. IMPRESSIONS: 1. Postoperative day #5, status post exploratory laparotomy and fascia closure. 2. Postoperative day #11, status post sigmoidectomy colostomy for volvulus. 3. Resolved postoperative respiratory failure. PLAN: 1. Increase activity per Physical and Occupational therapy. 2. Consider transfer to general surgical floor. I had a discussion with the Pulmonary and Critical Care Service. Job ID: [id number]
[2018-04-22] MEDS: SODIUM ACETATE IV SCH (15:49)
[2018-04-22] MEDS: SODIUM CHLORIDE IV SCH (15:49)
[2018-04-22] MEDS: [UNRECOGNIZED DRUG - OTHER] IV SCH (15:49)
[2018-04-22] MEDS: POTASSIUM CHLORIDE IV SCH (15:49)
[2018-04-22] MEDS ORDERED: Furosemide 40 MG/4 ML VIAL SLOW IVP SCH (20:15)
[2018-04-23] MEDS: Piperacillin/Tazobactam 3.375 GM in Sodium Chloride 0.9% 100 ML IVPB SCH ×4 (05:56→23:01)
[2018-04-23] MEDS: D5 1/2 NS w/20 mEq KCL 1,000 ML IV SCH ×2 (05:56→08:30)
[2018-04-23 06:38] LABS: Phosphorus 2.4 mg/dL (2.3-4.7)
[2018-04-23 06:41] LABS: Anion Gap 11 mmol/L (10-20); BUN (Urea Nitrogen) 19 mg/dL (8.4-25.7); Calc. Creatinine Clearance 92 mL/min (70-130); Calcium 8.1 mg/dL (7.8-10.44); Carbon Dioxide 31 mmol/L (23-31); Chloride 101 mmol/L (98-107); Estimated GFR-MDRD 79; Glucose 108 mg/dL (83-110); Magnesium 1.8 mg/dL (1.6-2.6); Potassium 3.6 mmol/L (3.5-5.1); Sodium 139 mmol/L (136-145)
[2018-04-23] MEDS: Enoxaparin Sodium 40 MG/0.4 ML SYRINGE SC SCH ×2 (08:16→21:54)
[2018-04-23] MEDS: Docusate Sodium 100 MG/10 ML UDCUP PER TUBE SCH ×2 (08:16→21:54)
[2018-04-23] MEDS: Polyethylene Glycol 3350 17 GM Packet PO SCH (08:16)
[2018-04-23] MEDS: Pantoprazole 40 MG VIAL IVP SCH ×2 (08:16→21:53)
[2018-04-23 09:34] LABS: #Eosinphils 0.6 thou/uL (0.0-0.7); #Lymphocytes 1.1 thou/uL (1.20-3.40); #Monocytes 0.6 thou/uL (0.11-0.59); #Neutrophils 4.3 thou/uL (1.40-6.50); %Basophils 0.4 % (0.0-1.0); %Eosinophils 8.9 % (0.0-10.0); %Lymphocytes 16.3 % (21.0-51.0); %Monocytes 9.6 % (0.0-10.0); %Neutrophils 64.9 % (42.0-75.0); Hemoglobin 8.3 g/dL (14.0-18.0); Mean Corpuscular HGB CONC 32.6 g/dL (32.0-36.0); Mean Corpuscular Hemoglobin 31.1 pg (27.0-31.0); Mean Corpuscular Volume 95.6 fL (78.0-98.0); Mean Platelet Volume 5.9 fL (7.4-10.4); Platelet Count 421 thou/uL (130-400); RBC Distribution Width 14.6 % (11.5-14.5); Red Blood Cell (RBC) Count 2.68 mill/uL (4.70-6.10); White Blood Cell (WBC) Count 6.6 thou/uL (4.8-10.8)
[2018-04-23 09:52] LABS: Phosphorus 2.3 mg/dL (2.3-4.7)
[2018-04-23 09:56] LABS: ALT (SGPT) 17 U/L (8-55); AST (SGOT) 27 U/L (5-34); Albumin 2.5 g/dL (3.4-4.8); Alkaline Phosphatase 61 U/L (40-150); Anion Gap 12 mmol/L (10-20); BUN (Urea Nitrogen) 18 mg/dL (8.4-25.7); Bilirubin, Total 0.6 mg/dL (0.2-1.2); Calc. Creatinine Clearance 91 mL/min (70-130); Calcium 8.4 mg/dL (7.8-10.44); Carbon Dioxide 27 mmol/L (23-31); Cardiac Risk 4.3 (Less than 4.5); Chloride 102 mmol/L (98-107); Cholesterol 117 mg/dl (< 200 Desired); Estimated GFR-MDRD 78; Globulin 2.4 g/dL (2.4-3.5); Glucose 138 mg/dL (83-110); HDL Cholesterol 27 mg/dL (>60 Neg Risk); LDL Cholesterol, Calculated 67 mg/dL; Magnesium 1.9 mg/dL (1.6-2.6); Potassium 3.6 mmol/L (3.5-5.1); Protein, Total 4.9 g/dL (5.8-8.1); Sodium 137 mmol/L (136-145); Triglycerides 114 mg/dL (Less than 150)
[2018-04-23] MEDS: Acetaminophen 500 MG TAB PO SCH ×3 (11:48→23:02)
--- NOTE | 2018-04-23 11:54 | PRG ---
DATE OF SERVICE: 04/23/2018 SUBJECTIVE: The patient is doing well. He wants to be able to get up in a chair. OBJECTIVE: VITAL SIGNS: On exam, temperature is 98.6, pulse 80, respirations 16, O2 sat 99% on 2 L, and blood pressure 110/65. GENERAL: He is a morbidly obese male, in no acute distress. HEENT: Unremarkable. NECK: No JVD. CHEST: Clear. ABDOMEN: He has a binder in place. EXTREMITIES: Edematous. LABORATORY DATA: White blood cell count 6.6, hematocrit 25.6, and platelet count 421. Sodium 137, potassium 3.6, BUN 18, creatinine 0.9, and glucose 138. ASSESSMENT: The patient is stable from a pulmonary standpoint. He has generalized edema, but most of his problems are postsurgical in nature. PLAN: No further Pulmonary recommendations. We will sign off. Please recall if further assistance needed. Job ID: [id number]
--- NOTE | 2018-04-23 12:25 | PRG ---
DATE OF SERVICE: 04/23/2018 SUBJECTIVE: Mr. Perez is an 87-year-old man, who is 12 days status post sigmoidectomy and colostomy. He is also postop day # 6, status post reoperative laparotomy and fascia closure. The patient is awake and alert this morning. He reports adequate pain control. He is tolerating trophic tube feeds. Urinary output has been adequate. OBJECTIVE: VITAL SIGNS: This morning include, blood pressure 110/65, pulse 85, respiratory rate is 24, temperature 98.6 degrees Fahrenheit, oxygen saturation 99% on 2 L by nasal cannula oxygen. HEENT: Examination reveals pupils equal, round, and reactive to light and accommodation. He has no jugular venous distention noted. HEART: Reveals regular rate and rhythm. LUNGS: Clear to auscultation bilaterally. Breathing regular and nonlabored. ABDOMEN: Soft, nontender to palpation. Ostomy is viable and now productive with liquid stool and gas. Fairly, he has no peritoneal signs on examination. EXTREMITIES: With 2+ peripheral pulses bilaterally. He has 2+ bilateral ankle edema present. NEUROLOGIC: Examination reveals no focal deficits present. LABORATORY FINDINGS: Today includes a CBC with 6,600 white blood cells, hemoglobin and hematocrit 8.3 and 25.6, respectively. Platelet count is 421,000. Metabolic profile; sodium 137, potassium 3.6, chloride is 102, bicarb is 27, BUN and creatinine 18 and 0.92, respectively. Glucose is 138. IMPRESSIONS: 1. Postoperative day # 6, status post reoperative laparotomy and fascia closure. 2. Postoperative day #12, status post sigmoidectomy and colostomy. 3. Resolved adynamic ileus. 4. Stable acute blood loss anemia. PLAN: 1. We will increase tube feeds to 20 mL/h and initiate clear liquid diet. We will allow the TPN to run its course and discontinue after the current bag is infused. 2. Increase activity per Physical and Occupational therapy. 3. I will ask Physical Medicine and Rehabilitation to evaluate the patient for possible discharge to inpatient rehabilitation. 4. Above findings and plan discussed with the patient, who indicates understanding and information given. 5. Answered his questions. Job ID: [id number]
--- NOTE | 2018-04-23 15:19 | PDOC.PN ---
- Subjective Encounter Start Date: 04/23/18 Encounter Start Time: 15:18 Mr. Perez was seen today in follow-up for medical management. He is awake and alert. He is still a bit confused, but closer to his baseline. He does not have any complaints. - Objective MAR Reviewed: Yes Vital Signs & Weight: Vital Signs (12 hours) Temp Pulse Resp BP Pulse Ox 04/23/18 14:05 100 18 04/23/18 11:38 97.9 F 89 24 H 107/63 92 L 04/23/18 10:34 80 16 04/23/18 07:18 98.6 F 85 24 H 110/65 99 04/23/18 07:01 80 16 04/23/18 04:12 98.3 F 85 20 146/74 H 98 04/23/18 03:40 95 Weight Admit Weight 242 lb Weight 242 lb Most Recent Monitor Data Heart Rate from ECG 84 NIBP 126/62 NIBP BP-Mean 83 Respiration from ECG 22 SpO2 94 I&O: 04/22/18 04/23/18 04/24/18 06:59 06:59 06:59 Intake Total 3968.1 2868 Output Total 5035 5840 Balance -1066.9 -2972 Result Diagrams: 04/23/18 09:24 04/23/18 09:24 Additional Labs: Accuchecks 04/23/18 04/23/18 04/22/18 11:39 05:42 23:43 POC Glucose 121 H 116 H 136 H 04/22/18 16:35 POC Glucose 135 H Phys Exam - Physical Examination HEENT: PERRLA Respiratory: no wheezing, no rales, no rhonchi, clear to auscultation bilateral Cardiovascular: RRR, no significant murmur, no rub Gastrointestinal: soft, positive bowel sounds wound vac in place Musculoskeletal: pulses present, edema present + upper and lower extremity edema Dx/Plan (1) HTN (hypertension) Code(s): I10 - ESSENTIAL (PRIMARY) HYPERTENSION Status: Chronic Comment: controlled. 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 (5) Sigmoid volvulus Status: Acute Comment: s/p Correction by colonoscopy (6) MICHELLE (obstructive sleep apnea) Code(s): G47.33 - OBSTRUCTIVE SLEEP APNEA (ADULT) (PEDIATRIC) Status: Chronic (7) Wound dehiscence Code(s): T81.30XA - DISRUPTION OF WOUND, UNSPECIFIED, INITIAL ENCOUNTER Status : Acute - Plan * HTN- blood pressure is stable * History of Mitral Valve replacement- he is on half dose of Lovenox- due to his recent bleeding episode- His H&H has been stable- consider full dose anticoagulation per General Surgery * MICHELLE- stable * Empiric Antibiotics- he has been on Zosyn a few days now- would consider de- escalating in the next day or 2 * His diet has been advanced to clear liquids * Stable for Rehab transfer soon .
[2018-04-23] MEDS: Ferrous Sulfate 325 MG TAB PO SCH (17:33)
[2018-04-23] MEDS: Ascorbic Acid 500 mg Chewable Tablet PO SCH (21:53)
[2018-04-24] MEDS ORDERED: Calcium Carbonate 500 MG ChewTAB PO PRN (01:19)
[2018-04-24] MEDS ORDERED: Ondansetron PF 4 MG/2 ML Vial SLOW IVP SCH (03:00)
[2018-04-24] MEDS: Acetaminophen 500 MG TAB PO SCH ×4 (05:38→23:30)
[2018-04-24] MEDS: Piperacillin/Tazobactam 3.375 GM in Sodium Chloride 0.9% 100 ML IVPB SCH ×4 (05:38→23:30)
[2018-04-24 06:15] LABS: Phosphorus 3.2 mg/dL (2.3-4.7)
[2018-04-24 06:18] LABS: Anion Gap 12 mmol/L (10-20); BUN (Urea Nitrogen) 14 mg/dL (8.4-25.7); Calc. Creatinine Clearance 94 mL/min (70-130); Calcium 8.3 mg/dL (7.8-10.44); Carbon Dioxide 30 mmol/L (23-31); Chloride 101 mmol/L (98-107); Estimated GFR-MDRD 81; Glucose 106 mg/dL (83-110); Magnesium 1.7 mg/dL (1.6-2.6); Potassium 3.7 mmol/L (3.5-5.1); Sodium 139 mmol/L (136-145)
[2018-04-24] MEDS: Pantoprazole 40 MG VIAL IVP SCH ×2 (10:09→21:59)
[2018-04-24] MEDS: Docusate Sodium 100 MG/10 ML UDCUP PER TUBE SCH ×2 (10:09→21:59)
[2018-04-24] MEDS: Polyethylene Glycol 3350 17 GM Packet PO SCH (10:09)
[2018-04-24] MEDS: Ferrous Sulfate 325 MG TAB PO SCH ×2 (10:09→17:36)
[2018-04-24] MEDS: Enoxaparin Sodium 40 MG/0.4 ML SYRINGE SC SCH (10:10)
[2018-04-24] MEDS: Ascorbic Acid 500 mg Chewable Tablet PO SCH ×2 (10:10→21:59)
[2018-04-24 10:40] LABS: #Eosinphils 0.9 thou/uL (0.0-0.7); #Lymphocytes 1.2 thou/uL (1.20-3.40); #Monocytes 0.6 thou/uL (0.11-0.59); #Neutrophils 3.4 thou/uL (1.40-6.50); %Basophils 0.5 % (0.0-1.0); %Eosinophils 14.8 % (0.0-10.0); %Lymphocytes 19.6 % (21.0-51.0); %Monocytes 9.3 % (0.0-10.0); %Neutrophils 55.8 % (42.0-75.0); Hemoglobin 8.5 g/dL (14.0-18.0); Mean Corpuscular Hemoglobin 30.9 pg (27.0-31.0); Mean Corpuscular Volume 96.4 fL (78.0-98.0); Mean Platelet Volume 6.3 fL (7.4-10.4); Platelet Count 537 thou/uL (130-400); RBC Distribution Width 14.7 % (11.5-14.5); Red Blood Cell (RBC) Count 2.75 mill/uL (4.70-6.10); White Blood Cell (WBC) Count 6.1 thou/uL (4.8-10.8)
[2018-04-24 11:00] LABS: Phosphorus 3.1 mg/dL (2.3-4.7)
[2018-04-24 11:02] LABS: ALT (SGPT) 21 U/L (8-55); AST (SGOT) 38 U/L (5-34); Albumin 2.8 g/dL (3.4-4.8); Alkaline Phosphatase 69 U/L (40-150); Anion Gap 12 mmol/L (10-20); BUN (Urea Nitrogen) 15 mg/dL (8.4-25.7); Bilirubin, Total 0.7 mg/dL (0.2-1.2); Calc. Creatinine Clearance 81 mL/min (70-130); Calcium 8.7 mg/dL (7.8-10.44); Carbon Dioxide 30 mmol/L (23-31); Cardiac Risk 6.1 (Less than 4.5); Chloride 102 mmol/L (98-107); Cholesterol 140 mg/dl (< 200 Desired); Estimated GFR-MDRD 68; Globulin 2.7 g/dL (2.4-3.5); Glucose 123 mg/dL (83-110); HDL Cholesterol 23 mg/dL (>60 Neg Risk); LDL Cholesterol, Calculated 90 mg/dL; Magnesium 1.9 mg/dL (1.6-2.6); Potassium 4.2 mmol/L (3.5-5.1); Protein, Total 5.5 g/dL (5.8-8.1); Sodium 140 mmol/L (136-145); Triglycerides 134 mg/dL (Less than 150)
[2018-04-24] MEDS: Magnesium Oxide 400 MG TAB PO PRN ×2 (11:52→17:36)
--- NOTE | 2018-04-24 14:54 | PDOC.PN ---
- Subjective Encounter Start Date: 04/24/18 Encounter Start Time: 11:45 Mr. Perez was seen today in follow-up for medical management following laparotomy. - Objective MAR Reviewed: Yes Vital Signs & Weight: Vital Signs (12 hours) Temp Pulse Resp BP Pulse Ox 04/24/18 12:27 98.4 F 92 18 113/70 92 L 04/24/18 10:56 89 18 94 L 04/24/18 08:20 97.6 F 81 18 117/70 93 L 04/24/18 07:07 91 18 95 04/24/18 04:37 98.3 F 83 19 119/66 94 L 04/24/18 03:15 85 20 99 Weight Admit Weight 242 lb Weight 242 lb Most Recent Monitor Data Heart Rate from ECG 84 NIBP 126/62 NIBP BP-Mean 83 Respiration from ECG 22 SpO2 94 I&O: 04/23/18 04/24/18 04/25/18 06:59 06:59 06:59 Intake Total 2868 2075 460 Output Total 5840 1570 685 Balance -2972 505 -225 Result Diagrams: 04/24/18 10:12 04/24/18 10:12 Additional Labs: Accuchecks 04/24/18 04/24/18 04/23/18 11:06 05:45 23:52 POC Glucose 144 H 116 H 121 H 04/23/18 18:31 POC Glucose 131 H Phys Exam - Physical Examination HEENT: PERRLA Respiratory: no wheezing, no rales + occasional rhonchi, and Cardiovascular: RRR, no significant murmur, no rub Gastrointestinal: soft, non-tender, positive bowel sounds Musculoskeletal: edema present much improved edema in both upper and lower extremities Neurological: non-focal Dx/Plan (1) HTN (hypertension) Code(s): I10 - ESSENTIAL (PRIMARY) HYPERTENSION Status: Chronic Comment: controlled. 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 (5) Sigmoid volvulus Status: Acute Comment: s/p Correction by colonoscopy (6) MICHELLE (obstructive sleep apnea) Code(s): G47.33 - OBSTRUCTIVE SLEEP APNEA (ADULT) (PEDIATRIC) Status: Chronic (7) Wound dehiscence Code(s): T81.30XA - DISRUPTION OF WOUND, UNSPECIFIED, INITIAL ENCOUNTER Status : Acute - Plan * HTN- blood pressure is stable * Mitral Valve replacement- continue Lovenox at half dose- increase to full dose , and re-start Coumadin once ok's by Surgery * MICHELLE- stable * Severe deconditioning- continue PT/OT * Rehab has been approved- transfer when cleared by Surgery.
--- NOTE | 2018-04-24 15:51 | PDOC.GSPN ---
Surgery Progress Note: Subj - Subjective Narrative: Patient is feeling well. He denies any nausea. He has minimal pain. He is tolerating a full liquid diet. His colostomy is functioning. VAC dressing is in place. Colostomy appears healthy. He is oriented to self and place. His left arm is significantly more swollen than the right arm. Assessment/plan: Doing well overall. We can resume therapeutic anticoagulation as his hemoglobin and hematocrit have been stable. He can get out of bed with physical therapy. I will order duplex of his left upper extremity. Surgery Progress Note: Obj - Vital signs Vital signs: Vital Signs - Most Recent Temp Pulse Resp BP Pulse Ox 98.4 F 92 18 113/70 92 L 04/24/18 12:27 04/24/18 12:27 04/24/18 12:27 04/24/18 12:27 04/24/18 12:27 Surgery Progress Note: Results - Labs Result Diagrams: 04/24/18 10:12 04/24/18 10:12 Lab results: Laboratory Results - last 24 hr 04/24/18 04/24/18 04/24/18 05:00 05:00 05:45 WBC RBC Hgb Hct MCV MCH MCHC RDW Plt Count MPV Neutrophils % Lymphocytes % Monocytes % Eosinophils % Basophils % Neutrophils # Lymphocytes # Monocytes # Eosinophils # Basophils # Sodium 139 Potassium 3.7 Chloride 101 Carbon Dioxide 30 Anion Gap 12 BUN 14 Creatinine 0.89 Estimated GFR (MDRD) 81 Glucose 106 POC Glucose 116 H Calcium 8.3 Phosphorus 3.2 Magnesium 1.7 Total Bilirubin AST ALT Alkaline Phosphatase Serum Total Protein Albumin Globulin Albumin/Globulin Ratio Triglycerides Cholesterol LDL Cholesterol, Calc HDL Cholesterol Heart Disease Risk Ratio 04/24/18 04/24/18 04/24/18 10:12 10:12 10:12 WBC 6.1 RBC 2.75 L Hgb 8.5 L Hct 26.5 L MCV 96.4 MCH 30.9 MCHC 32.0 RDW 14.7 H Plt Count 537 H MPV 6.3 L Neutrophils % 55.8 Lymphocytes % 19.6 L Monocytes % 9.3 Eosinophils % 14.8 H Basophils % 0.5 Neutrophils # 3.4 Lymphocytes # 1.2 Monocytes # 0.6 H Eosinophils # 0.9 H Basophils # 0.0 Sodium 140 Potassium 4.2 Chloride 102 Carbon Dioxide 30 Anion Gap 12 BUN 15 Creatinine 1.04 Estimated GFR (MDRD) 68 Glucose 123 H POC Glucose Calcium 8.7 Phosphorus 3.1 Magnesium 1.9 Total Bilirubin 0.7 AST 38 H ALT 21 Alkaline Phosphatase 69 Serum Total Protein 5.5 L Albumin 2.8 L Globulin 2.7 Albumin/Globulin Ratio 1.0 L Triglycerides 134 Cholesterol 140 LDL Cholesterol, Calc 90 HDL Cholesterol 23 Heart Disease Risk Ratio 6.1 04/24/18 11:06 WBC RBC Hgb Hct MCV MCH MCHC RDW Plt Count MPV Neutrophils % Lymphocytes % Monocytes % Eosinophils % Basophils % Neutrophils # Lymphocytes # Monocytes # Eosinophils # Basophils # Sodium Potassium Chloride Carbon Dioxide Anion Gap BUN Creatinine Estimated GFR (MDRD) Glucose POC Glucose 144 H Calcium Phosphorus Magnesium Total Bilirubin AST ALT Alkaline Phosphatase Serum Total Protein Albumin Globulin Albumin/Globulin Ratio Triglycerides Cholesterol LDL Cholesterol, Calc HDL Cholesterol Heart Disease Risk Ratio
[2018-04-24] MEDS: Warfarin Sodium 5 MG TAB PO SCH (17:35)
--- NOTE | 2018-04-24 19:24 | ULT ---
LEFT UPPER EXTREMITY VENOUS DOPPLER: 04/24/2018 PROVIDED CLINICAL HISTORY: Left upper extremity edema. FINDINGS: Dempsey-scale and color Doppler sonography with spectral analysis was performed of the left internal jug ular, subclavian, axillary, brachial, basilic, cephalic, radial, and ulnar veins, demonstrating a nor mal sonographic appearance to each. IMPRESSION: No sonographic evidence for left upper extremity deep venous thrombosis. POS: DAVID
[2018-04-24] MEDS: Enoxaparin Sodium 100 MG/ML SYRINGE SC SCH (21:59)
[2018-04-24] MEDS ORDERED: Sterile Water 10 ML VIAL IVP SCH (23:42)
[2018-04-24] MEDS ORDERED: Activase 2 MG VIAL CATH SCH ×2 (23:45)
[2018-04-25] MEDS: Ondansetron PF 4 MG/2 ML Vial SLOW IVP PRN ×2 (00:08→09:00)
[2018-04-25 04:25] LABS: Phosphorus 3.3 mg/dL (2.3-4.7)
[2018-04-25 04:26] LABS: Anion Gap 11 mmol/L (10-20); BUN (Urea Nitrogen) 12 mg/dL (8.4-25.7); Calc. Creatinine Clearance 84 mL/min (70-130); Calcium 8.4 mg/dL (7.8-10.44); Carbon Dioxide 31 mmol/L (23-31); Chloride 103 mmol/L (98-107); Estimated GFR-MDRD 71; Glucose 98 mg/dL (83-110); Magnesium 2.1 mg/dL (1.6-2.6); Potassium 3.9 mmol/L (3.5-5.1); Sodium 141 mmol/L (136-145)
[2018-04-25] MEDS: Acetaminophen 500 MG TAB PO SCH ×4 (05:06→23:55)
[2018-04-25] MEDS: Piperacillin/Tazobactam 3.375 GM in Sodium Chloride 0.9% 100 ML IVPB SCH ×4 (05:08→23:57)
[2018-04-25] MEDS: Pantoprazole 40 MG VIAL IVP SCH ×2 (09:00→20:38)
[2018-04-25] MEDS: Ferrous Sulfate 325 MG TAB PO SCH ×2 (09:01→18:20)
[2018-04-25] MEDS: Polyethylene Glycol 3350 17 GM Packet PO SCH (09:01)
[2018-04-25] MEDS: Ascorbic Acid 500 mg Chewable Tablet PO SCH ×2 (09:01→20:37)
[2018-04-25] MEDS: Docusate Sodium 100 MG/10 ML UDCUP PER TUBE SCH ×2 (10:56→20:38)
[2018-04-25] MEDS: Enoxaparin Sodium 100 MG/ML SYRINGE SC SCH ×2 (10:56→20:38)
--- NOTE | 2018-04-25 15:03 | PDOC.PN ---
- Subjective Encounter Start Date: 04/25/18 Encounter Start Time: 11:15 Subjective: is sitting in chair -: tolerating oral diet, had his breakfast -: no abd pain - Objective MAR Reviewed: Yes Vital Signs & Weight: Vital Signs (12 hours) Temp Pulse Resp BP Pulse Ox 04/25/18 13:30 77 16 99 04/25/18 11:50 97.3 F L 92 18 110/68 92 L 04/25/18 10:28 86 18 86 L 04/25/18 07:38 97.9 F 81 18 116/66 93 L 04/25/18 07:09 98 04/25/18 07:07 73 16 98 04/25/18 04:22 98.3 F 74 20 119/75 93 L Weight Admit Weight 242 lb Weight 242 lb Most Recent Monitor Data Heart Rate from ECG 84 NIBP 126/62 NIBP BP-Mean 83 Respiration from ECG 22 SpO2 94 I&O: 04/24/18 04/25/18 04/26/18 06:59 06:59 06:59 Intake Total 2075 1485 560 Output Total 1570 1210 560 Balance 505 275 0 Result Diagrams: 04/24/18 10:12 04/25/18 03:30 Additional Labs: Accuchecks 04/25/18 04/25/18 04/24/18 11:48 05:24 18:09 POC Glucose 136 H 126 H 127 H Phys Exam - Physical Examination HEENT: PERRLA, moist MMs Neck: no JVD, supple Respiratory: no wheezing, no rales Cardiovascular: RRR, no significant murmur Gastrointestinal: soft, no distention, positive bowel sounds colostomy has liq stool Musculoskeletal: pulses present, edema present Neurological: non-focal, moves all 4 limbs Psychiatric: normal affect, A&O x 3 Dx/Plan (1) s/p sigmoid colectomy with colostomy Status: Acute (2) Sigmoid volvulus Status: Acute Comment: s/p Correction by colonoscopy (3) Acute blood loss anemia Code(s): D62 - ACUTE POSTHEMORRHAGIC ANEMIA Status: Acute (4) HLD (hyperlipidemia) Code(s): E78.5 - HYPERLIPIDEMIA, UNSPECIFIED Status: Chronic Comment: continue statin. (5) HTN (hypertension) Code(s): I10 - ESSENTIAL (PRIMARY) HYPERTENSION Status: Chronic Comment: controlled. 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 Review of Systems - Medications/Allergies Allergies/Adverse Reactions: Allergies Allergy/AdvReac Type Severity Reaction Status Date / Time No Known Drug Allergies Allergy Verified 04/10/18 15:06 Medications: Current Medications Acetaminophen (Tylenol) 1,000 mg PO Q6HR [facility] Last Admin: 04/25/18 11:27 Dose: 1,000 mg Albuterol/Ipratropium (Duoneb) 3 ml NEB [id number] [facility] Last Admin: 04/25/18 13:30 Dose: 3 ml Ascorbic Acid (Vitamin C) 500 mg PO BID [facility] Last Admin: 04/25/18 09:01 Dose: 500 mg Calcium Carbonate (Tums) 1,000 mg PO Q4H PRN PRN Reason: STOMACH ACID Last Admin: 04/24/18 01:22 Dose: 1,000 mg Docusate Sodium (Colace Liquid) 100 mg PER TUBE BID [facility] Last Admin: 04/25/18 10:56 Dose: 100 mg Enoxaparin Sodium (Lovenox) 100 mg SC 0900,2100 [facility] Last Admin: 04/25/18 10:56 Dose: 100 mg Ferrous Sulfate (Feosol) 325 mg PO BID-WM [facility] Last Admin: 04/25/18 09:01 Dose: 325 mg Hypromellose (Systane Gel) 0 gm EA EYE Q4H PRN PRN Reason: Dry Eyes Last Admin: 04/12/18 09:33 Dose: 1 drop Piperacillin Sod/Tazobactam (Sod 3.375 gm/ Sodium Chloride) 100 mls @ 200 mls/ hr IVPB Q6HR [facility] Last Admin: 04/25/18 11:27 Dose: 100 mls Potassium Chloride 40 meq/ (Sodium Chloride) 270 mls @ 135 mls/hr IVPB ASDIR PRN PRN Reason: FOR SERUM K+ 2.5 - 3.5 Potassium Chloride 40 meq/ (Device) 100 mls @ 50 mls/hr IVPB ASDIR PRN PRN Reason: FOR SERUM K+ 2.5 - 3.5 Magnesium Sulfate 1 gm/ Sodium (Chloride) 102 mls @ 102 mls/hr IV PRN PRN PRN Reason: MAG LEVEL 1.4 - 2.0 Magnesium Sulfate 2 gm/ Device 100 mls @ 100 mls/hr IVPB ASDIR PRN PRN Reason: MAGNESIUM < 1.4 Potassium Phosphate 9 mmol/ (Sodium Chloride) 103 mls @ 25.75 mls/hr IVPB ASDIR PRN PRN Reason: Phosphate 1.0-1.8 Last Admin: 04/20/18 10:06 Dose: 103 mls Potassium Phosphate 12 mmol/ (Sodium Chloride) 254 mls @ 63.5 mls/hr IV ASDIR PRN PRN Reason: Serum phosphate 0.5-0.9 Potassium Phosphate 15 mmol/ (Sodium Chloride) 255 mls @ 63.75 mls/hr IV ASDIR PRN PRN Reason: Serum Phos < 0.5 Magnesium Oxide (Magnesium Oxide) 400 mg PO BIDPRN PRN PRN Reason: FOR SERUM MAG 1.4 - 2.0 Last Admin: 04/24/18 17:36 Dose: 400 mg Magnesium Oxide (Magnesium Oxide) 800 mg PO PRN PRN PRN Reason: FOR SERUM MAG < 1.4 Miscellaneous Medication (Phos-Nak) 1 pkt PO TIDPRN PRN PRN Reason: FOR PHOS LEVEL 1.0 - 1.8 Miscellaneous Medication (Phos-Nak) 2 pkt PO TIDPRN PRN PRN Reason: FOR PHOS LEVEL 0.5 - 1.0 Discontinue Previous Narcotic Pain Medications And Benzodiazepines 1 each FS .ONE [facility] Stop: 05/17/18 20:43 Ccu Electrolyte (Replacement Protocol) 0 each FS PRN PRN PRN Reason: FOR ELECTROLYTE REPLACEMENT Ondansetron HCl (Zofran) 8 mg SLOW IVP Q6H PRN PRN Reason: Nausea/Vomiting Last Admin: 04/25/18 09:00 Dose: 8 mg Pantoprazole Sodium (Protonix) 40 mg IVP BID [facility] Last Admin: 04/25/18 09:00 Dose: 40 mg Polyethylene Glycol (Miralax) 17 gm PO DAILY [facility] Last Admin: 04/25/18 09:01 Dose: 17 gm Potassium Chloride (K-Dur) 40 meq PO ASDIR PRN PRN Reason: FOR SERUM K+ 2.5 - 3.5 Potassium Chloride (Klor-Con) 40 meq PER TUBE ASDIR PRN PRN Reason: FOR SERUM K+ 2.5-3.5 Sodium Chloride (Flush - Normal Saline) 10 ml IVF PRN PRN PRN Reason: Saline Flush Last Admin: 04/25/18 09:01 Dose: 10 ml Sodium Chloride (Flush - Normal Saline) 10 ml IVF PRN PRN PRN Reason: Saline Flush Tramadol HCl (Ultram) 50 mg PO Q6H PRN PRN Reason: Moderate Pain (4-6) Tramadol HCl (Ultram) 100 mg PO Q6H PRN PRN Reason: Severe Pain (7-10) Warfarin Sodium (Coumadin) 2.5 mg PO TuSa@1700 [facility] Warfarin Sodium (Coumadin) 5 mg PO [id number]@1700 [facility] Last Admin: 04/24/18 17:35 Dose: 5 mg
[2018-04-25] MEDS ORDERED: Warfarin Sodium 2.5 MG TAB PO SCH (17:00)
--- NOTE | 2018-04-25 23:29 | PRG ---
DATE OF SERVICE: 04/25/2018 Mr. Perez is feeling good today. He is tolerating a full diet and has been out of bed to the chair. He denies any shortness of breath and is maintaining his sats on nasal cannula. The VAC is in place with minimal serosanguineous drainage. His colostomy has liquid stool in the bag and appears healthy. Urine output has been good. ASSESSMENT: Improving. He is on therapeutic Lovenox and I have restarted his Coumadin. I will likely discontinue the Alejo catheter tomorrow, but may do some bladder training first since he has had it in for sometime. Job ID: [id number]
[2018-04-26] MEDS: Acetaminophen 500 MG TAB PO SCH ×3 (05:05→17:59)
[2018-04-26] MEDS: Piperacillin/Tazobactam 3.375 GM in Sodium Chloride 0.9% 100 ML IVPB SCH ×3 (05:05→18:00)
[2018-04-26 05:28] LABS: Hemoglobin 7.5 g/dL (14.0-18.0)
[2018-04-26 05:30] LABS: INR-International Normal Ratio 1.3; Prothrombin Time 16.5 SEC (12.0-14.7)
[2018-04-26 05:31] LABS: PTT 55.8 SEC (22.9-36.1)
[2018-04-26] MEDS ORDERED: Diabetic Tussin 200 MG/10 ML UDCUP PO PRN (06:22)
[2018-04-26] MEDS: Enoxaparin Sodium 100 MG/ML SYRINGE SC SCH ×2 (09:07→19:25)
[2018-04-26] MEDS: Ferrous Sulfate 325 MG TAB PO SCH ×2 (09:08→18:00)
[2018-04-26] MEDS: Docusate Sodium 100 MG/10 ML UDCUP PER TUBE SCH ×2 (09:08→21:35)
[2018-04-26] MEDS: Polyethylene Glycol 3350 17 GM Packet PO SCH (09:08)
[2018-04-26] MEDS: Ascorbic Acid 500 mg Chewable Tablet PO SCH ×2 (09:08→21:14)
[2018-04-26] MEDS: Pantoprazole 40 MG VIAL IVP SCH ×2 (09:09→21:14)
[2018-04-26] MEDS: traMADol HCl 50 MG TAB PO PRN (09:50)
--- NOTE | 2018-04-26 10:48 | PDOC.PN ---
- Subjective Encounter Start Date: 04/26/18 Encounter Start Time: 08:30 Subjective: is sitting in chair -: no abd pain, is tolerating oral diet - Objective MAR Reviewed: Yes Vital Signs & Weight: Vital Signs (12 hours) Temp Pulse Resp BP BP Pulse Ox 04/26/18 08:08 97.7 F 78 20 128/73 92 L 04/26/18 08:00 95 04/26/18 06:48 78 18 98 04/26/18 04:50 98.3 F 78 20 98/56 L 93 L 04/26/18 04:00 92 L 04/26/18 02:08 80 16 96 04/26/18 00:36 98.1 F 81 20 99/59 L 96 Weight Admit Weight 242 lb Weight 242 lb Most Recent Monitor Data Heart Rate from ECG 84 NIBP 126/62 NIBP BP-Mean 83 Respiration from ECG 22 SpO2 94 I&O: 04/25/18 04/26/18 04/27/18 06:59 06:59 06:59 Intake Total 1485 2840 920 Output Total 1210 2035 725 Balance 275 805 195 Result Diagrams: 04/26/18 05:00 04/25/18 03:30 Additional Labs: Accuchecks 04/26/18 04/25/18 04/25/18 05:55 23:31 15:36 POC Glucose 107 133 H 122 H 04/25/18 04/24/18 11:48 23:12 POC Glucose 136 H 127 H Phys Exam - Physical Examination HEENT: PERRLA, moist MMs Neck: no JVD, supple Respiratory: no wheezing, no rales Cardiovascular: RRR, no significant murmur Gastrointestinal: soft, positive bowel sounds colostomy has stool, wound in vac Musculoskeletal: pulses present, edema present Neurological: non-focal, moves all 4 limbs Psychiatric: normal affect, A&O x 3 Dx/Plan (1) s/p sigmoid colectomy with colostomy Status: Acute (2) Sigmoid volvulus Status: Acute Comment: s/p Correction by colonoscopy (3) Acute blood loss anemia Code(s): D62 - ACUTE POSTHEMORRHAGIC ANEMIA Status: Acute (4) HLD (hyperlipidemia) Code(s): E78.5 - HYPERLIPIDEMIA, UNSPECIFIED Status: Chronic Comment: continue statin. (5) HTN (hypertension) Code(s): I10 - ESSENTIAL (PRIMARY) HYPERTENSION Status: Chronic Comment: controlled. 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 Review of Systems - Medications/Allergies Allergies/Adverse Reactions: Allergies Allergy/AdvReac Type Severity Reaction Status Date / Time No Known Drug Allergies Allergy Verified 04/10/18 15:06 Medications: Current Medications Acetaminophen (Tylenol) 1,000 mg PO Q6HR [facility] Last Admin: 04/26/18 05:05 Dose: 1,000 mg Albuterol/Ipratropium (Duoneb) 3 ml NEB [id number] [facility] Last Admin: 04/26/18 06:48 Dose: 3 ml Ascorbic Acid (Vitamin C) 500 mg PO BID [facility] Last Admin: 04/26/18 09:08 Dose: 500 mg Calcium Carbonate (Tums) 1,000 mg PO Q4H PRN PRN Reason: STOMACH ACID Last Admin: 04/24/18 01:22 Dose: 1,000 mg Docusate Sodium (Colace Liquid) 100 mg PER TUBE BID [facility] Last Admin: 04/26/18 09:08 Dose: 100 mg Enoxaparin Sodium (Lovenox) 100 mg SC 0900,2100 [facility] Last Admin: 04/26/18 09:07 Dose: 100 mg Ferrous Sulfate (Feosol) 325 mg PO BID-WM [facility] Last Admin: 04/26/18 09:08 Dose: 325 mg Guaifenesin (Robitussin Sf) 300 mg PO Q4H PRN PRN Reason: Cough Hypromellose (Systane Gel) 0 gm EA EYE Q4H PRN PRN Reason: Dry Eyes Last Admin: 04/12/18 09:33 Dose: 1 drop Piperacillin Sod/Tazobactam (Sod 3.375 gm/ Sodium Chloride) 100 mls @ 200 mls/ hr IVPB Q6HR [facility] Last Admin: 04/26/18 05:05 Dose: 100 mls Potassium Chloride 40 meq/ (Sodium Chloride) 270 mls @ 135 mls/hr IVPB ASDIR PRN PRN Reason: FOR SERUM K+ 2.5 - 3.5 Potassium Chloride 40 meq/ (Device) 100 mls @ 50 mls/hr IVPB ASDIR PRN PRN Reason: FOR SERUM K+ 2.5 - 3.5 Magnesium Sulfate 1 gm/ Sodium (Chloride) 102 mls @ 102 mls/hr IV PRN PRN PRN Reason: MAG LEVEL 1.4 - 2.0 Magnesium Sulfate 2 gm/ Device 100 mls @ 100 mls/hr IVPB ASDIR PRN PRN Reason: MAGNESIUM < 1.4 Potassium Phosphate 9 mmol/ (Sodium Chloride) 103 mls @ 25.75 mls/hr IVPB ASDIR PRN PRN Reason: Phosphate 1.0-1.8 Last Admin: 04/20/18 10:06 Dose: 103 mls Potassium Phosphate 12 mmol/ (Sodium Chloride) 254 mls @ 63.5 mls/hr IV ASDIR PRN PRN Reason: Serum phosphate 0.5-0.9 Potassium Phosphate 15 mmol/ (Sodium Chloride) 255 mls @ 63.75 mls/hr IV ASDIR PRN PRN Reason: Serum Phos < 0.5 Magnesium Oxide (Magnesium Oxide) 400 mg PO BIDPRN PRN PRN Reason: FOR SERUM MAG 1.4 - 2.0 Last Admin: 04/24/18 17:36 Dose: 400 mg Magnesium Oxide (Magnesium Oxide) 800 mg PO PRN PRN PRN Reason: FOR SERUM MAG < 1.4 Miscellaneous Medication (Phos-Nak) 1 pkt PO TIDPRN PRN PRN Reason: FOR PHOS LEVEL 1.0 - 1.8 Miscellaneous Medication (Phos-Nak) 2 pkt PO TIDPRN PRN PRN Reason: FOR PHOS LEVEL 0.5 - 1.0 Discontinue Previous Narcotic Pain Medications And Benzodiazepines 1 each FS .ONE [facility] Stop: 05/17/18 20:43 Ccu Electrolyte (Replacement Protocol) 0 each FS PRN PRN PRN Reason: FOR ELECTROLYTE REPLACEMENT Ondansetron HCl (Zofran) 8 mg SLOW IVP Q6H PRN PRN Reason: Nausea/Vomiting Last Admin: 04/25/18 09:00 Dose: 8 mg Pantoprazole Sodium (Protonix) 40 mg IVP BID [facility] Last Admin: 04/26/18 09:09 Dose: 40 mg Polyethylene Glycol (Miralax) 17 gm PO DAILY [facility] Last Admin: 04/26/18 09:08 Dose: 17 gm Potassium Chloride (K-Dur) 40 meq PO ASDIR PRN PRN Reason: FOR SERUM K+ 2.5 - 3.5 Potassium Chloride (Klor-Con) 40 meq PER TUBE ASDIR PRN PRN Reason: FOR SERUM K+ 2.5-3.5 Sodium Chloride (Flush - Normal Saline) 10 ml IVF PRN PRN PRN Reason: Saline Flush Last Admin: 04/25/18 20:38 Dose: 10 ml Sodium Chloride (Flush - Normal Saline) 10 ml IVF PRN PRN PRN Reason: Saline Flush Tramadol HCl (Ultram) 50 mg PO Q6H PRN PRN Reason: Moderate Pain (4-6) Tramadol HCl (Ultram) 100 mg PO Q6H PRN PRN Reason: Severe Pain (7-10) Last Admin: 04/26/18 09:50 Dose: 100 mg Warfarin Sodium (Coumadin) 2.5 mg PO TuSa@1700 [facility] Last Admin: 04/25/18 18:21 Dose: 2.5 mg Warfarin Sodium (Coumadin) 5 mg PO SuMoWeThFr@1700 [facility] Last Admin: 04/24/18 17:35 Dose: 5 mg
[2018-04-26] MEDS: Warfarin Sodium 5 MG TAB PO SCH (18:00)
[2018-04-26] MEDS ORDERED: Clopidogrel Bisulfate 75 MG TAB ONE (19:28)
[2018-04-27] MEDS: Piperacillin/Tazobactam 3.375 GM in Sodium Chloride 0.9% 100 ML IVPB SCH ×2 (00:09→06:00)
[2018-04-27] MEDS: Acetaminophen 500 MG TAB PO SCH ×5 (00:09→23:27)
[2018-04-27 06:15] LABS: #Eosinphils 0.6 thou/uL (0.0-0.7); #Monocytes 0.4 thou/uL (0.11-0.59); #Neutrophils 2.5 thou/uL (1.40-6.50); %Basophils 0.4 % (0.0-1.0); %Lymphocytes 22.2 % (21.0-51.0); %Monocytes 8.1 % (0.0-10.0); %Neutrophils 55.4 % (42.0-75.0); Hemoglobin 8.1 g/dL (14.0-18.0); Mean Corpuscular HGB CONC 30.6 g/dL (32.0-36.0); Mean Corpuscular Hemoglobin 30.4 pg (27.0-31.0); Mean Corpuscular Volume 99.4 fL (78.0-98.0); Mean Platelet Volume 6.2 fL (7.4-10.4); Platelet Count 475 thou/uL (130-400); RBC Distribution Width 14.8 % (11.5-14.5); Red Blood Cell (RBC) Count 2.65 mill/uL (4.70-6.10); White Blood Cell (WBC) Count 4.5 thou/uL (4.8-10.8)
[2018-04-27 06:21] LABS: INR-International Normal Ratio 1.3; PTT 40.7 SEC (22.9-36.1); Prothrombin Time 16.3 SEC (12.0-14.7)
[2018-04-27 06:43] LABS: Anion Gap 12 mmol/L (10-20); BUN (Urea Nitrogen) 11 mg/dL (8.4-25.7); Calc. Creatinine Clearance 87 mL/min (70-130); Calcium 8.5 mg/dL (7.8-10.44); Carbon Dioxide 29 mmol/L (23-31); Chloride 103 mmol/L (98-107); Estimated GFR-MDRD 74; Glucose 113 mg/dL (83-110); Potassium 4.1 mmol/L (3.5-5.1); Sodium 140 mmol/L (136-145)
[2018-04-27] MEDS: Docusate Sodium 100 MG/10 ML UDCUP PER TUBE SCH ×2 (07:59→20:28)
[2018-04-27] MEDS: Polyethylene Glycol 3350 17 GM Packet PO SCH (08:00)
[2018-04-27] MEDS: Ascorbic Acid 500 mg Chewable Tablet PO SCH ×2 (08:00→20:28)
[2018-04-27] MEDS: Ferrous Sulfate 325 MG TAB PO SCH ×2 (08:00→16:55)
[2018-04-27] MEDS: Pantoprazole 40 MG VIAL IVP SCH ×2 (08:00→20:28)
[2018-04-27] MEDS: Enoxaparin Sodium 100 MG/ML SYRINGE SC SCH ×2 (08:00→20:29)
--- NOTE | 2018-04-27 12:04 | PDOC.PN ---
- Subjective Encounter Start Date: 04/27/18 Encounter Start Time: 10:40 Subjective: no sob -: feels better - Objective MAR Reviewed: Yes Vital Signs & Weight: Vital Signs (12 hours) Temp Pulse Resp BP BP Pulse Ox 04/27/18 11:11 98.0 F 81 20 145/82 H 93 L 04/27/18 10:50 94 L 04/27/18 10:16 66 18 96 04/27/18 08:36 98.3 F 65 16 122/68 96 04/27/18 08:00 95 04/27/18 07:56 97.5 F L 79 22 H 154/89 H 95 04/27/18 07:25 78 18 94 L 04/27/18 04:12 98.1 F 79 20 111/72 94 L 04/27/18 00:51 98.1 F 75 20 126/72 96 Weight Admit Weight 242 lb Weight 242 lb Most Recent Monitor Data Heart Rate from ECG 84 NIBP 126/62 NIBP BP-Mean 83 Respiration from ECG 22 SpO2 94 I&O: 04/26/18 04/27/18 04/28/18 06:59 06:59 06:59 Intake Total 2840 2000 Output Total 2035 1475 Balance 805 525 Result Diagrams: 04/27/18 06:09 04/27/18 06:09 Additional Labs: Accuchecks 04/26/18 04/26/18 04/26/18 23:47 17:53 12:01 POC Glucose 123 H 104 111 H Phys Exam - Physical Examination HEENT: PERRLA, moist MMs Neck: no JVD, supple Respiratory: no wheezing, no rales Cardiovascular: RRR, no significant murmur click+ Gastrointestinal: soft, no distention, positive bowel sounds wound vac+, colostomy has dark thick liq stool Musculoskeletal: pulses present, edema present Neurological: non-focal, moves all 4 limbs Psychiatric: A&O x 3 Dx/Plan (1) s/p sigmoid colectomy with colostomy Status: Acute (2) Sigmoid volvulus Status: Acute Comment: s/p Correction by colonoscopy (3) Acute blood loss anemia Code(s): D62 - ACUTE POSTHEMORRHAGIC ANEMIA Status: Acute (4) HLD (hyperlipidemia) Code(s): E78.5 - HYPERLIPIDEMIA, UNSPECIFIED Status: Chronic Comment: continue statin. (5) HTN (hypertension) Code(s): I10 - ESSENTIAL (PRIMARY) HYPERTENSION Status: Chronic Comment: controlled. 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 Review of Systems - Medications/Allergies Allergies/Adverse Reactions: Allergies Allergy/AdvReac Type Severity Reaction Status Date / Time No Known Drug Allergies Allergy Verified 04/10/18 15:06 Medications: Current Medications Acetaminophen (Tylenol) 1,000 mg PO Q6HR [facility] Last Admin: 04/27/18 06:00 Dose: 1,000 mg Albuterol/Ipratropium (Duoneb) 3 ml NEB [id number] [facility] Last Admin: 04/27/18 10:16 Dose: 3 ml Ascorbic Acid (Vitamin C) 500 mg PO BID [facility] Last Admin: 04/27/18 08:00 Dose: 500 mg Calcium Carbonate (Tums) 1,000 mg PO Q4H PRN PRN Reason: STOMACH ACID Last Admin: 04/24/18 01:22 Dose: 1,000 mg Docusate Sodium (Colace Liquid) 100 mg PER TUBE BID [facility] Last Admin: 04/27/18 07:59 Dose: 100 mg Enoxaparin Sodium (Lovenox) 100 mg SC 0900,2100 [facility] Last Admin: 04/27/18 08:00 Dose: 100 mg Ferrous Sulfate (Feosol) 325 mg PO BID-WM [facility] Last Admin: 04/27/18 08:00 Dose: 325 mg Guaifenesin (Robitussin Sf) 300 mg PO Q4H PRN PRN Reason: Cough Hypromellose (Systane Gel) 0 gm EA EYE Q4H PRN PRN Reason: Dry Eyes Last Admin: 04/12/18 09:33 Dose: 1 drop Potassium Chloride 40 meq/ (Sodium Chloride) 270 mls @ 135 mls/hr IVPB ASDIR PRN PRN Reason: FOR SERUM K+ 2.5 - 3.5 Potassium Chloride 40 meq/ (Device) 100 mls @ 50 mls/hr IVPB ASDIR PRN PRN Reason: FOR SERUM K+ 2.5 - 3.5 Magnesium Sulfate 1 gm/ Sodium (Chloride) 102 mls @ 102 mls/hr IV PRN PRN PRN Reason: MAG LEVEL 1.4 - 2.0 Magnesium Sulfate 2 gm/ Device 100 mls @ 100 mls/hr IVPB ASDIR PRN PRN Reason: MAGNESIUM < 1.4 Potassium Phosphate 9 mmol/ (Sodium Chloride) 103 mls @ 25.75 mls/hr IVPB ASDIR PRN PRN Reason: Phosphate 1.0-1.8 Last Admin: 04/20/18 10:06 Dose: 103 mls Potassium Phosphate 12 mmol/ (Sodium Chloride) 254 mls @ 63.5 mls/hr IV ASDIR PRN PRN Reason: Serum phosphate 0.5-0.9 Potassium Phosphate 15 mmol/ (Sodium Chloride) 255 mls @ 63.75 mls/hr IV ASDIR PRN PRN Reason: Serum Phos < 0.5 Magnesium Oxide (Magnesium Oxide) 400 mg PO BIDPRN PRN PRN Reason: FOR SERUM MAG 1.4 - 2.0 Last Admin: 04/24/18 17:36 Dose: 400 mg Magnesium Oxide (Magnesium Oxide) 800 mg PO PRN PRN PRN Reason: FOR SERUM MAG < 1.4 Miscellaneous Medication (Phos-Nak) 1 pkt PO TIDPRN PRN PRN Reason: FOR PHOS LEVEL 1.0 - 1.8 Miscellaneous Medication (Phos-Nak) 2 pkt PO TIDPRN PRN PRN Reason: FOR PHOS LEVEL 0.5 - 1.0 Discontinue Previous Narcotic Pain Medications And Benzodiazepines 1 each FS .ONE [facility] Stop: 05/17/18 20:43 Ccu Electrolyte (Replacement Protocol) 0 each FS PRN PRN PRN Reason: FOR ELECTROLYTE REPLACEMENT Ondansetron HCl (Zofran) 8 mg SLOW IVP Q6H PRN PRN Reason: Nausea/Vomiting Last Admin: 04/25/18 09:00 Dose: 8 mg Pantoprazole Sodium (Protonix) 40 mg IVP BID [facility] Last Admin: 04/27/18 08:00 Dose: 40 mg Polyethylene Glycol (Miralax) 17 gm PO DAILY [facility] Last Admin: 04/27/18 08:00 Dose: 17 gm Potassium Chloride (K-Dur) 40 meq PO ASDIR PRN PRN Reason: FOR SERUM K+ 2.5 - 3.5 Potassium Chloride (Klor-Con) 40 meq PER TUBE ASDIR PRN PRN Reason: FOR SERUM K+ 2.5-3.5 Sodium Chloride (Flush - Normal Saline) 10 ml IVF PRN PRN PRN Reason: Saline Flush Last Admin: 04/25/18 20:38 Dose: 10 ml Sodium Chloride (Flush - Normal Saline) 10 ml IVF PRN PRN PRN Reason: Saline Flush Last Admin: 04/26/18 21:15 Dose: 10 ml Tramadol HCl (Ultram) 50 mg PO Q6H PRN PRN Reason: Moderate Pain (4-6) Tramadol HCl (Ultram) 100 mg PO Q6H PRN PRN Reason: Severe Pain (7-10) Last Admin: 04/26/18 09:50 Dose: 100 mg Warfarin Sodium (Coumadin) 2.5 mg PO TuSa@1700 [facility] Last Admin: 04/25/18 18:21 Dose: 2.5 mg Warfarin Sodium (Coumadin) 5 mg PO SuMoWeThFr@1700 [facility] Last Admin: 04/26/18 18:00 Dose: 5 mg
[2018-04-27] MEDS: Warfarin Sodium 5 MG TAB PO SCH (16:55)
--- NOTE | 2018-04-27 17:42 | PDOC.GSPN ---
Surgery Progress Note: Subj - Subjective Narrative: Patient is feeling good. He denies any nausea and has very minimal abdominal pain. He had some bleeding when he tried to urinate last night but the bladder scan did not show any evidence of retention and he states that he was able to urinate normally multiple times after that. His evening Lovenox was held but I have restarted this. He stood with physical therapy and walked across the room and back yesterday. His ambulation is limited by left knee pain which is chronic. The VAC dressing is intact with very minimal drainage. Colostomy is healthy and there is liquid stool in the bag. Assessment/plan: Doing well overall. Oral intake is still suboptimal. He is taking his shakes between meals as instructed after encouragement from me and his nurses yesterday. I will plan to stop his tube feeds once he is taking more than 50% of his meals and his supplements as instructed Surgery Progress Note: Obj - Vital signs Vital signs: Vital Signs - Most Recent Temp Pulse Resp BP Pulse Ox 98.2 F 91 20 149/76 H 94 L 04/27/18 15:58 04/27/18 15:58 04/27/18 15:58 04/27/18 15:58 04/27/18 15:58 Surgery Progress Note: Results - Labs Result Diagrams: 04/27/18 06:09 04/27/18 06:09 Lab results: Laboratory Results - last 24 hr 04/27/18 04/27/18 04/27/18 06:09 06:09 06:09 WBC 4.5 L RBC 2.65 L Hgb 8.1 L Hct 26.3 L MCV 99.4 H MCH 30.4 MCHC 30.6 L RDW 14.8 H Plt Count 475 H MPV 6.2 L Neutrophils % 55.4 Lymphocytes % 22.2 Monocytes % 8.1 Eosinophils % 14.0 H Basophils % 0.4 Neutrophils # 2.5 Lymphocytes # 1.0 L Monocytes # 0.4 Eosinophils # 0.6 Basophils # 0.0 PT 16.3 H INR 1.3 APTT 40.7 H Sodium 140 Potassium 4.1 Chloride 103 Carbon Dioxide 29 Anion Gap 12 BUN 11 Creatinine 0.96 Estimated GFR (MDRD) 74 Glucose 113 H POC Glucose Calcium 8.5 04/27/18 04/27/18 11:08 15:55 WBC RBC Hgb Hct MCV MCH MCHC RDW Plt Count MPV Neutrophils % Lymphocytes % Monocytes % Eosinophils % Basophils % Neutrophils # Lymphocytes # Monocytes # Eosinophils # Basophils # PT INR APTT Sodium Potassium Chloride Carbon Dioxide Anion Gap BUN Creatinine Estimated GFR (MDRD) Glucose POC Glucose 114 H 121 H Calcium
[2018-04-27] MEDS: traMADol HCl 50 MG TAB PO PRN (22:31)
[2018-04-28] MEDS: Acetaminophen 500 MG TAB PO SCH ×4 (05:25→23:38)
[2018-04-28 05:53] LABS: INR-International Normal Ratio 1.5; PTT 51.2 SEC (22.9-36.1)
[2018-04-28] MEDS ORDERED: Albuterol Sulfate 1.25 MG/3 ML NEB ONE (07:02)
[2018-04-28] MEDS: Ferrous Sulfate 325 MG TAB PO SCH ×2 (07:33→17:09)
[2018-04-28] MEDS: Docusate Sodium 100 MG/10 ML UDCUP PER TUBE SCH ×2 (07:33→20:32)
[2018-04-28] MEDS: Ascorbic Acid 500 mg Chewable Tablet PO SCH ×2 (07:33→20:29)
[2018-04-28] MEDS: Polyethylene Glycol 3350 17 GM Packet PO SCH (07:34)
[2018-04-28] MEDS: traMADol HCl 50 MG TAB PO PRN ×3 (11:16→23:38)
--- NOTE | 2018-04-28 11:46 | PDOC.GSPN ---
Surgery Progress Note: Subj - Subjective Patient reports: no new complaints, tolerating a regular diet (Not much appetite. Eating about a third of meals but drinking ensure enlive and yessenia BID between meals. Up to chair and working with PT. Woiund clean and granulating. Colostomy healthy with liquid stool in bag. Prealbumin 13. Assessment/Plan: Doing well. PO intake improved. DC tube feeds and do calorie count.) Surgery Progress Note: Obj - Vital signs Vital signs: Vital Signs - Most Recent Temp Pulse Resp BP Pulse Ox 98.0 F 104 H 20 142/80 H 93 L 04/28/18 11:00 04/28/18 11:00 04/28/18 11:00 04/28/18 11:00 04/28/18 11:00 Surgery Progress Note: Results - Labs Result Diagrams: 04/27/18 06:09 04/27/18 06:09 Lab results: Laboratory Results - last 24 hr 04/27/18 04/28/18 04/28/18 05:46 05:15 05:15 PT 18.0 H INR 1.5 APTT 51.2 H POC Glucose 111 H Prealbumin 13.0 L 04/28/18 04/28/18 06:33 10:54 PT INR APTT POC Glucose 116 H 144 H Prealbumin
--- NOTE | 2018-04-28 12:00 | PDOC.PN ---
- Subjective Encounter Start Date: 04/28/18 Encounter Start Time: 08:25 Subjective: awake, no sob -: no bleeding per urethra -: has back pain - Objective MAR Reviewed: Yes Vital Signs & Weight: Vital Signs (12 hours) Temp Pulse Resp BP BP Pulse Ox 04/28/18 11:00 98.0 F 104 H 20 142/80 H 93 L 04/28/18 10:23 97 16 94 L 04/28/18 09:00 97.6 F 95 20 157/95 H 93 L 04/28/18 07:09 98 04/28/18 07:07 86 16 98 04/28/18 04:00 97.4 F L 91 20 152/86 H 94 L 04/28/18 02:02 88 12 94 L 04/28/18 00:00 98.1 F 88 20 141/78 H 94 L Weight Admit Weight 242 lb Weight 242 lb Most Recent Monitor Data Heart Rate from ECG 84 NIBP 126/62 NIBP BP-Mean 83 Respiration from ECG 22 SpO2 94 I&O: 04/27/18 04/28/18 04/29/18 06:59 06:59 06:59 Intake Total 1999 2460 Output Total 1475 2200 Balance 525 260 Result Diagrams: 04/27/18 06:09 04/27/18 06:09 Additional Labs: Accuchecks 04/28/18 04/28/18 04/27/18 10:54 06:33 21:18 POC Glucose 144 H 116 H 113 H 04/27/18 04/27/18 04/27/18 15:55 11:08 05:46 POC Glucose 121 H 114 H 111 H Phys Exam - Physical Examination HEENT: PERRLA, moist MMs Neck: no JVD, supple Respiratory: no wheezing, no rales Cardiovascular: RRR, no significant murmur Gastrointestinal: soft, positive bowel sounds colostomy has stool, abd wound in vac Musculoskeletal: pulses present, edema present Neurological: non-focal, moves all 4 limbs Psychiatric: normal affect, A&O x 3 Dx/Plan (1) s/p sigmoid colectomy with colostomy Status: Acute (2) Sigmoid volvulus Status: Acute Comment: s/p Correction by colonoscopy (3) Acute blood loss anemia Code(s): D62 - ACUTE POSTHEMORRHAGIC ANEMIA Status: Acute (4) HLD (hyperlipidemia) Code(s): E78.5 - HYPERLIPIDEMIA, UNSPECIFIED Status: Chronic Comment: continue statin. (5) HTN (hypertension) Code(s): I10 - ESSENTIAL (PRIMARY) HYPERTENSION Status: Chronic Comment: controlled. 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 is getting ng feeding, protonix bid. Prognosis guarded, has to start ambulating and eating is drinking protein shakes. Review of Systems - Medications/Allergies Allergies/Adverse Reactions: Allergies Allergy/AdvReac Type Severity Reaction Status Date / Time No Known Drug Allergies Allergy Verified 04/10/18 15:06 Medications: Current Medications Acetaminophen (Tylenol) 1,000 mg PO Q6HR [facility] Last Admin: 04/28/18 11:15 Dose: 1,000 mg Albuterol/Ipratropium (Duoneb) 3 ml NEB [id number] [facility] Last Admin: 04/28/18 10:23 Dose: 3 ml Ascorbic Acid (Vitamin C) 500 mg PO BID [facility] Last Admin: 04/28/18 07:33 Dose: 500 mg Calcium Carbonate (Tums) 1,000 mg PO Q4H PRN PRN Reason: STOMACH ACID Last Admin: 04/24/18 01:22 Dose: 1,000 mg Docusate Sodium (Colace Liquid) 100 mg PER TUBE BID [facility] Last Admin: 04/28/18 07:33 Dose: 100 mg Ferrous Sulfate (Feosol) 325 mg PO BID-WM [facility] Last Admin: 04/28/18 07:33 Dose: 325 mg Guaifenesin (Robitussin Sf) 300 mg PO Q4H PRN PRN Reason: Cough Hypromellose (Systane Gel) 0 gm EA EYE Q4H PRN PRN Reason: Dry Eyes Last Admin: 04/12/18 09:33 Dose: 1 drop Potassium Chloride 40 meq/ (Sodium Chloride) 270 mls @ 135 mls/hr IVPB ASDIR PRN PRN Reason: FOR SERUM K+ 2.5 - 3.5 Potassium Chloride 40 meq/ (Device) 100 mls @ 50 mls/hr IVPB ASDIR PRN PRN Reason: FOR SERUM K+ 2.5 - 3.5 Magnesium Sulfate 1 gm/ Sodium (Chloride) 102 mls @ 102 mls/hr IV PRN PRN PRN Reason: MAG LEVEL 1.4 - 2.0 Magnesium Sulfate 2 gm/ Device 100 mls @ 100 mls/hr IVPB ASDIR PRN PRN Reason: MAGNESIUM < 1.4 Potassium Phosphate 9 mmol/ (Sodium Chloride) 103 mls @ 25.75 mls/hr IVPB ASDIR PRN PRN Reason: Phosphate 1.0-1.8 Last Admin: 04/20/18 10:06 Dose: 103 mls Potassium Phosphate 12 mmol/ (Sodium Chloride) 254 mls @ 63.5 mls/hr IV ASDIR PRN PRN Reason: Serum phosphate 0.5-0.9 Potassium Phosphate 15 mmol/ (Sodium Chloride) 255 mls @ 63.75 mls/hr IV ASDIR PRN PRN Reason: Serum Phos < 0.5 Magnesium Oxide (Magnesium Oxide) 400 mg PO BIDPRN PRN PRN Reason: FOR SERUM MAG 1.4 - 2.0 Last Admin: 04/24/18 17:36 Dose: 400 mg Magnesium Oxide (Magnesium Oxide) 800 mg PO PRN PRN PRN Reason: FOR SERUM MAG < 1.4 Miscellaneous Medication (Phos-Nak) 1 pkt PO TIDPRN PRN PRN Reason: FOR PHOS LEVEL 1.0 - 1.8 Miscellaneous Medication (Phos-Nak) 2 pkt PO TIDPRN PRN PRN Reason: FOR PHOS LEVEL 0.5 - 1.0 Discontinue Previous Narcotic Pain Medications And Benzodiazepines 1 each FS .ONE [facility] Stop: 05/17/18 20:43 Ccu Electrolyte (Replacement Protocol) 0 each FS PRN PRN PRN Reason: FOR ELECTROLYTE REPLACEMENT Ondansetron HCl (Zofran) 8 mg SLOW IVP Q6H PRN PRN Reason: Nausea/Vomiting Last Admin: 04/25/18 09:00 Dose: 8 mg Pantoprazole Sodium (Protonix) 40 mg PO BID [facility] Last Admin: 04/28/18 07:40 Dose: 40 mg Polyethylene Glycol (Miralax) 17 gm PO DAILY [facility] Last Admin: 04/28/18 07:34 Dose: 17 gm Potassium Chloride (K-Dur) 40 meq PO ASDIR PRN PRN Reason: FOR SERUM K+ 2.5 - 3.5 Potassium Chloride (Klor-Con) 40 meq PER TUBE [facility] PRN PRN Reason: FOR SERUM K+ 2.5-3.5 Sodium Chloride (Flush - Normal Saline) 10 ml IVF PRN PRN PRN Reason: Saline Flush Last Admin: 04/25/18 20:38 Dose: 10 ml Sodium Chloride (Flush - Normal Saline) 10 ml IVF PRN PRN PRN Reason: Saline Flush Last Admin: 04/26/18 21:15 Dose: 10 ml Tramadol HCl (Ultram) 50 mg PO Q6H PRN PRN Reason: Moderate Pain (4-6) Tramadol HCl (Ultram) 100 mg PO Q6H PRN PRN Reason: Severe Pain (7-10) Last Admin: 04/28/18 11:16 Dose: 100 mg Warfarin Sodium (Coumadin) 5 mg PO SuMoWeThFr@1700 [facility]
[2018-04-28] MEDS ORDERED: Warfarin Sodium 5 MG TAB PO SCH ×3 (17:00→21:00)
[2018-04-29] MEDS: Acetaminophen 500 MG TAB PO SCH ×2 (05:23→16:49)
[2018-04-29] MEDS: traMADol HCl 50 MG TAB PO PRN ×3 (05:24→16:48)
[2018-04-29 05:57] LABS: INR-International Normal Ratio 1.6; PTT 50.6 SEC (22.9-36.1); Prothrombin Time 18.9 SEC (12.0-14.7)
--- NOTE | 2018-04-29 09:05 | PRG ---
DATE OF SERVICE: 04/29/2018 SUBJECTIVE: Mr. Perez is doing well. He has no complaints this morning. He denies pain. OBJECTIVE: VITAL SIGNS: He is afebrile. Vital signs are stable. ABDOMEN: Soft and nontender. Midline wound VAC is in place. There is stool in his colostomy bag. ASSESSMENT: Postop sigmoid colectomy and colostomy. PLAN: Continue physical therapy and work on disposition to long-term or rehab. Job ID: [id number]
[2018-04-29] MEDS: Ferrous Sulfate 325 MG TAB PO SCH (10:07)
[2018-04-29] MEDS: Ascorbic Acid 500 mg Chewable Tablet PO SCH (10:07)
[2018-04-29] MEDS: Polyethylene Glycol 3350 17 GM Packet PO SCH (10:08)
[2018-04-29] MEDS: Docusate Sodium 100 MG/10 ML UDCUP PER TUBE SCH (13:05)
--- NOTE | 2018-04-29 13:56 | PDOC.PN ---
- Subjective Encounter Start Date: 04/29/18 Encounter Start Time: 10:15 Subjective: no sob or pain -: feels better, says he is eating better -: no bleeding per urethra - Objective MAR Reviewed: Yes Vital Signs & Weight: Vital Signs (12 hours) Temp Pulse Resp BP BP Pulse Ox 04/29/18 13:39 92 18 92 L 04/29/18 11:00 98.1 F 91 20 134/71 93 L 04/29/18 10:10 91 18 92 L 04/29/18 07:38 97.6 F 91 22 H 150/70 H 92 L 04/29/18 06:33 98 04/29/18 06:18 90 93 L 04/29/18 05:05 97.6 F 92 20 138/79 93 L 04/29/18 02:04 91 16 93 L Weight Admit Weight 242 lb Weight 242 lb Most Recent Monitor Data Heart Rate from ECG 84 NIBP 126/62 NIBP BP-Mean 83 Respiration from ECG 22 SpO2 94 I&O: 04/28/18 04/29/18 04/30/18 06:59 06:59 06:59 Intake Total 2460 720 Output Total 2200 1025 Balance 260 -305 Result Diagrams: 04/27/18 06:09 04/27/18 06:09 Additional Labs: Accuchecks 04/29/18 04/29/18 04/28/18 10:59 05:29 23:44 POC Glucose 124 H 110 107 04/28/18 04/28/18 20:11 15:48 POC Glucose 118 H 108 Phys Exam - Physical Examination HEENT: PERRLA, sclera anicteric dry mucosa Neck: no JVD, supple Respiratory: no wheezing, no rales Cardiovascular: RRR, no significant murmur click+ Gastrointestinal: soft, positive bowel sounds colostomy has stool, wound vac+ Musculoskeletal: pulses present, edema present Neurological: non-focal, moves all 4 limbs Psychiatric: normal affect, A&O x 3 Dx/Plan (1) s/p sigmoid colectomy with colostomy Status: Acute (2) Sigmoid volvulus Status: Acute Comment: s/p Correction by colonoscopy (3) Acute blood loss anemia Code(s): D62 - ACUTE POSTHEMORRHAGIC ANEMIA Status: Acute (4) HLD (hyperlipidemia) Code(s): E78.5 - HYPERLIPIDEMIA, UNSPECIFIED Status: Chronic Comment: continue statin. (5) HTN (hypertension) Code(s): I10 - ESSENTIAL (PRIMARY) HYPERTENSION Status: Chronic Comment: controlled. (6) Mechanical heart valve present Code(s): Z95.2 - PRESENCE OF PROSTHETIC HEART VALVE Status: Chronic Comment : mitral mech valve (7) MICHELLE (obstructive sleep apnea) Code(s): G47.33 - OBSTRUCTIVE SLEEP APNEA (ADULT) (PEDIATRIC) Status: Chronic - Plan inr is 1.6 today, increase coumadin to 6mg daily, ptt is 50 -: may dc to rehab, needs daily inr check and titration of coumadin -: alb is low, watch for rapid rise in inr -: has been cleared by for dc, is off ng feeding now -: wound vac is being arranged at rehab * .
[2018-04-29 16:40] VITALS: BP 167/89; TEMP 98.3
--- NOTE | 2018-04-30 09:06 | EKG ---
Test Reason : Blood Pressure : / mmHG Vent. 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
--- NOTE | 2018-04-30 14:16 | DIS ---
DATE OF ADMISSION: 04/10/2018 DATE OF DISCHARGE: 04/29/2018 DISCHARGE DISPOSITION: Inpatient rehab. PRIMARY DISCHARGE DIAGNOSES: 1. Sigmoid volvulus with hematoma, status post sigmoid colectomy with colostomy. 2. Acute blood loss anemia. 3. Mechanical mitral valve. 4. Hypertension. 5. Dyslipidemia. 6. Obstructive sleep apnea. 7. Severe deconditioning. PROCEDURES DONE DURING HOSPITALIZATION: Please note, the patient has had multiple imaging and lab work done due to his prolonged stay in the hospital and refer to [facility] for the same. His CT of the abdomen and pelvis done on the day of admission showed findings suspicious for sigmoid volvulus. The patient had colonoscopy and colonic decompression of sigmoid volvulus. Postprocedure does some submucosal hemorrhage in the area of the sigmoid colon just in the area of the volvulus. Rectal tube was placed post decompression. The patient had a rectal bleed after reduction of his volvulus and had repeat colonoscopy done, which showed large colon wall hematoma with clot, probably 10 cm in size. Sigmoid colectomy with colostomy was done on 04/11/[address] Faria. Histopathology of the resected sigmoid colon showed intramural hematoma, margins were viable, numerous intraluminal blood clots were seen. Had ultrasound of left upper extremity venous Doppler done, which showed no evidence of DVT. Urine culture no growth. Discharge hemoglobin and hematocrit of 8 and 26, platelet count 475. Discharge INR was 1.6 with PTT of 50. Discharge BUN and creatinine were 11 and 0.9. Pre-albumin was 13 on the 11th of this month. INPATIENT CONSULTS: Dr. Faria for General Surgery, Dr. Estrada for Gastroenterology, Dr. Dutta for Pulmonology and Critical Care. DISCHARGE MEDICATIONS: 1. Aspirin 81 mg p.o. daily. 2. Coumadin 6 mg p.o. daily. 3. Ferrous sulfate 325 mg p.o. twice daily. 4. Vitamin D3 of 1000 units p.o. daily. 5. Levothyroxine 25 mcg p.o. daily. 6. Lasix 40 mg p.o. daily. 7. Potassium chloride 10 mEq p.o. daily. 8. Simvastatin 40 mg p.o. at bedtime. 9. Vitamin C 500 mg p.o. twice daily. 10. Colace 100 mg p.o. twice daily. 11. DuoNebs q.i.d. 12. Protonix 40 mg p.o. twice daily. 13. MiraLAX 17 g daily. 14. Ultram p.r.n. for pain. ALLERGIES: NO KNOWN DRUG ALLERGIES. DISCHARGE PLAN: The patient to follow up with Dr. Faria as advised. BRIEF COURSE DURING HOSPITALIZATION: The patient initially came to ER on the with complaints of nausea and unable to pass gas or urine. He had a CAT scan done, which showed sigmoid volvulus. A Alejo catheter was placed as well. The patient had consultation with Dr. Estrada. The patient has had reduction of his volvulus through sigmoidoscopy. The patient developed rectal bleeding and had a relook sigmoidoscopy done, which showed large hematoma. The patient was later taken to OR on the and had sigmoid colectomy with colostomy. He has a wound VAC placed on his surgical site as well. He was initially in ICU and later downgraded to Med/Surg floor. The patient has had slow and steady progress. He was restarted on Lovenox and Coumadin. His INR is 1.6. The patient is on Coumadin 6 mg daily. Please note, the patient's albumin levels were 2.8 on the 7th of this month. He should have his INR become therapeutic pretty soon due to hypoalbuminemia. It is also on a higher dose of Coumadin than his home dose. He will require daily INR checks for his mechanical mitral valve. He has been cleared by General Surgery for discharge. Wound VAC has been arranged at the rehab facility. His Alejo catheter was removed during his stay here and he has been passing urine without any issues. The patient normally ambulates around 30 to 35 feet with a rolling walker at home and has not been able to do so here. He is barely able to stand up. He needs to further recuperate at the rehab facility. A total of 40 minutes was spent on discharge plan. Please see a [id number] documentation on [employer] for the day of discharge. Job ID: [id number]
== END 2018-04-29 17:00 | DRG 329 ==
LOC: ERS 09:04 → SDC 13:05 → SURG A 14:29 → CCU 21:35 → SURG B 04-12 11:21 → CCU 04-17 17:02 → SURG B 04-22 13:17 → CCU 04-22 13:23 → SURG A 04-22 15:19
PROVIDERS: ADMIT Surgery; ATTEND Surgery
PROC: 0WJP0ZZ Inspection of Gastrointestinal Tract, Open Approach (ICD-10-PCS; 2018-04-10)
PROC: 0D9N8ZZ Drainage of Sigmoid Colon, Via Natural or Artificial Opening Endoscopic (ICD-10-PCS; 2018-04-10)
PROC: 05H533Z Insertion of Infusion Device into Right Subclavian Vein, Percutaneous Approach (ICD-10-PCS; 2018-04-10)
PROC: 0DJD8ZZ Inspection of Lower Intestinal Tract, Via Natural or Artificial Opening Endoscopic (ICD-10-PCS; 2018-04-10)
PROC: 0DBN0ZZ Excision of Sigmoid Colon, Open Approach (ICD-10-PCS; principal; 2018-04-11)
PROC: 0D1N0Z4 Bypass Sigmoid Colon to Cutaneous, Open Approach (ICD-10-PCS; 2018-04-11)
PROC: 5A1935Z Respiratory Ventilation, Less than 24 Consecutive Hours (ICD-10-PCS; 2018-04-11)
PROC: 0BH17EZ Insertion of Endotracheal Airway into Trachea, Via Natural or Artificial Opening (ICD-10-PCS; 2018-04-11)
PROC: 0WQF3ZZ Repair Abdominal Wall, Percutaneous Approach (ICD-10-PCS; 2018-04-18)
DX: K56.2 Volvulus (principal); J95.822 Acute and chronic postprocedural respiratory failure; D62 Acute posthemorrhagic anemia; K91.870 Postprocedural hematoma of a digestive system organ or structure following a digestive system procedure; S36.529A Contusion of unspecified part of colon, initial encounter; T81.30XA Disruption of wound, unspecified, initial encounter; K92.2 Gastrointestinal hemorrhage, unspecified; I10 Essential (primary) hypertension; G47.33 Obstructive sleep apnea (adult) (pediatric); E78.5 Hyperlipidemia, unspecified; I25.10 Atherosclerotic heart disease of native coronary artery without angina pectoris; I87.8 Other specified disorders of veins; Z79.899 Other long term (current) drug therapy; Z79.01 Long term (current) use of anticoagulants; Z79.82 Long term (current) use of aspirin; Z87.891 Personal history of nicotine dependence; R00.0 Tachycardia, unspecified; I95.9 Hypotension, unspecified; E66.01 Morbid (severe) obesity due to excess calories; E83.39 Other disorders of phosphorus metabolism; E83.42 Hypomagnesemia; Z95.2 Presence of prosthetic heart valve; Z68.36 Body mass index [BMI] 36.0-36.9, adult
CPT/HCPCS: 36415; 36416; 36430; 51702; 71045; 74018; 74177; 80048; 80053; 80061; 81003; 81015; 82805; 83690; 83735; 84100; 84134; 84484; 85014; 85018; 85025; 85049; 85610; 85730; 86850; 86900; 86901; 87086; 88307; 93005; 93010; 94002; 94003; 94640; A4216; A4217; C9113; C9132; G8978-GP-CM; G8979-GP-CJ; G8987-GO-CM; G8988-GO-CK; J0131; J0690; J0694; J1650; J1815; J1940; J2001; J2250; J2270; J2405; J2543; J2704; J2997; J3010; J3430; J3475; J3480; J7050; J7620; P9016; P9035; P9045; P9047; P9059

== ENCOUNTER 2018-07-12 11:57 | Emergency (ER) | payer OTHER ==
[2018-07-12 12:29] LABS: #Lymphocytes 3.4 thou/uL (1.20-3.40); #Monocytes 0.6 thou/uL (0.11-0.59); #Neutrophils 3.8 thou/uL (1.40-6.50); %Basophils 0.4 % (0.0-1.0); %Eosinophils 0.5 % (0.0-10.0); %Lymphocytes 43.2 % (21.0-51.0); %Monocytes 7.1 % (0.0-10.0); %Neutrophils 48.8 % (42.0-75.0); Hemoglobin 14.3 g/dL (14.0-18.0); Mean Corpuscular HGB CONC 32.4 g/dL (32.0-36.0); Mean Corpuscular Hemoglobin 29.9 pg (27.0-31.0); Mean Corpuscular Volume 92.3 fL (78.0-98.0); Mean Platelet Volume 6.7 fL (7.4-10.4); Platelet Count 296 thou/uL (130-400); RBC Distribution Width 15.4 % (11.5-14.5); Red Blood Cell (RBC) Count 4.79 mill/uL (4.70-6.10); White Blood Cell (WBC) Count 7.8 thou/uL (4.8-10.8)
--- NOTE | 2018-07-12 12:34 | RAD ---
FChest AP view INDICATION: Pacemaker firing COMPARISON: April 22, 2018 FINDINGS: The lungs are clear. The heart size is normal. No pleural effusion or pneumothorax is evide nt. No acute osseous abnormality is noted. There is stable elevation of the right hemidiaphragm. 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 Single lead AICD overlying the left chest wall is stable. IMPRESSION: No acute cardiopulmonary abnormality.
[2018-07-12 12:38] LABS: INR-International Normal Ratio 2.5; PTT 38.8 SEC (22.9-36.1)
[2018-07-12 13:05] LABS: ALT (SGPT) 23 U/L (8-55); AST (SGOT) 29 U/L (5-34); Albumin 3.7 g/dL (3.4-4.8); Alkaline Phosphatase 74 U/L (40-150); Anion Gap 10 mmol/L (10-20); BUN (Urea Nitrogen) 25 mg/dL (8.4-25.7); Bilirubin, Total 0.6 mg/dL (0.2-1.2); Calc. Creatinine Clearance 0 mL/min (70-130); Calcium 9.8 mg/dL (7.8-10.44); Carbon Dioxide 33 mmol/L (23-31); Chloride 99 mmol/L (98-107); Estimated GFR-MDRD 63; Globulin 2.9 g/dL (2.4-3.5); Glucose 186 mg/dL (83-110); Magnesium 2.2 mg/dL (1.6-2.6); Potassium 3.9 mmol/L (3.5-5.1); Protein, Total 6.6 g/dL (5.8-8.1); Sodium 138 mmol/L (136-145)
[2018-07-12 13:32] LABS: CKMB 4.2 ng/mL (0-6.6)
[2018-07-12] MEDS ORDERED: Amiodarone 200 MG TAB PO SCH (18:00)
== END 2018-07-12 19:45 | disposition home or self-care (01) ==
LOC: ERS 11:57
DX: I47.2 Ventricular tachycardia (principal); I25.10 Atherosclerotic heart disease of native coronary artery without angina pectoris; Z87.891 Personal history of nicotine dependence; Z79.899 Other long term (current) drug therapy; Z79.891 Long term (current) use of opiate analgesic; Z79.01 Long term (current) use of anticoagulants; Z79.82 Long term (current) use of aspirin
CPT/HCPCS: 36415; 71045; 80053; 82553; 83735; 83880; 84484; 85025; 85610; 85730; 93005

== ENCOUNTER 2018-08-11 08:19 | Emergency (ER) | payer OTHER ==
[2018-08-11] MEDS ORDERED: Atropine Sulfate 1 mg/10 ml Syringe ONE (11:11)
[2018-08-11] MEDS ORDERED: EPINEPHrine 1 MG/10 ML Abboject SYRINGE ONE (11:11)
== END 2018-08-11 08:23 | disposition expired ==
LOC: ERS 08:19
DX: I46.9 Cardiac arrest, cause unspecified (principal)
CPT/HCPCS: 36415; 85025; 96374; 96375; J0171; J0461